=== PATIENT | male | born 1985 | race Caucasian/White ===

== ENCOUNTER 2018-02-17 13:58 | Emergency (ER) | payer SELFPAY ==
[2018-02-17 13:59] VITALS: BP 119/51; PULSE 100; RESP 18; TEMP 37.2; O2SAT 97; BMI 20.9
--- NOTE | 2018-02-17 14:23 | ED.VISSUMM ---
- ER Visit Summary Date of Service: 02/17/18 Chief Complaint: Sore throat History of Present Illness: The patient is a 32 M with a sore throat today. The pain is worse on the right side. He reports some swollen glands. No fever or cough. No other medical issues. Physical Examination: Afebrile vital signs unremarkable. 1+ tonsil on the right, otherwise normal. Anterior cervical lymphadenopathy noted on the right, tender to palpation. Good range of motion of his neck. Breathing okay. No stridor or drooling. Skin normal. Test Results: None Emergency Department Course and Treatment: After discussion with the patient, we will treat with dexamethasone and Pen-Vee K. Risks were discussed. Patient may use [id number] remedies for pain and fever. Risks such as abscess were discussed. Return for any new or worsening issues. Otherwise follow-up with primary care. Treatment Plan: As above Disposition: Discharge Impression: 1. Pharyngitis This note was generated with [employer] dictation software. It may contain incorrect words, spelling, and punctuation that were not noted in review of the chart prior to signing ED Disposition - Plan for ED Patient: Chief Complaint: Sore Throat Referrals: Care Physician,No Primary [Primary Care Provider] -
--- NOTE | 2018-02-17 14:25 | ED.DEP ---
ED Disposition - Plan for ED Patient: Chief Complaint: Sore Throat Instructions: ED Pharyngitis Viral Prescriptions: Penicillin V Potassium 500 mg PO BID 10 Days #20 tab Referrals: Care Physician,No Primary [Primary Care Provider] -
[2018-02-17] MEDS: Penicillin Vk 250 MG Tablet 500 MG PO (14:33)
== END 2018-02-17 14:38 | disposition home or self-care (01) ==
PROVIDERS: Emergency Provider Emergency Medicine
DX: J02.9 Acute pharyngitis, unspecified (principal); Z72.0 Tobacco use
CPT/HCPCS: 99283

== ENCOUNTER 2018-02-19 21:13 | Emergency (ER) | payer SELFPAY ==
[2018-02-19 21:15] VITALS: BP 130/85; PULSE 110; RESP 16; TEMP 36.9; O2SAT 95; BMI 20.9
[2018-02-19 21:47] LABS: Absolute Lymphocyte Count 1.01 X10^3/ul (0.83-4.51); Absolute Neutrophil Count 6.7 X10^3/uL (2.0-7.7); Basophil# 0.04 X10^3/uL; Basophil% 0.5 % (0-1); Eosinophil# 0.03 X10^3/uL; Eosinophils% 0.4 % (0-5); Hemoglobin 13.8 g/dl (13.0-16.5); Lymphocyte # 1.01 X10^3/ul (4.0); Lymphocyte % 11.9 % (19-41); Mean Corp Hgb Conc 33.7 g/gl (32-36); Mean Corpuscular Hgb 30.5 pg (27.0-32.0); Mean Corpuscular Volume 90.7 fL (80-94); Mean Platelet Vol. 9.3 fl (6.2-12.0); Monocyte# 0.76 X10^3/uL; Monocyte% 8.9 % (0-10); Neutrophil # 6.65 X10^3/uL (2.7-7.7); Neutrophil % 78.1 % (47-70); Platelet Count 203 K/mm3 (150-450); Red Blood Count 4.52 M/mm3 (4.6-6.2); White Blood Count 8.5 K/mm3 (4.4-11.0)
[2018-02-19 21:51] LABS: POSITIVE COUNT NO; POSITIVE DIFFERENTIAL NO; POSITIVE MORPHOLOGY NO
[2018-02-19 22:10] LABS: Anion Gap 4 (5-15); BUN 8 mg/dL (7-18); Calcium,Total 8.8 mg/dL (8.5-10.1); Chloride 109 mmol/L (98-107); Creatinine, Serum 1.15 mg/dL (0.70-1.30); EST Glomerular Filtration Rate 77 mL/min (>60); Est Glom Filt Rate - Afr Amer 93 mL/min (>60); Glucose 109 mg/dL (74-106); Potassium 3.8 mmol/L (3.5-5.1); Sodium Level 141 mmol/L (136-145)
--- NOTE | 2018-02-19 22:21 | EKG12_ITS ---
Test Reason : Blood Pressure : / mmHG Vent. Rate : 081 BPM Atrial Rate : 081 BPM P-R Int : 126 ms QRS Dur : 100 ms QT Int : 356 ms P-R-T Axes : 076 057 054 degrees QTc Int : 413 ms Normal sinus rhythm Normal ECG Confirmed by REMA UMANA MD ([id number]), health editor MOODY DONOVAN ([id number]) on 02/22/2018 8:56:55 AM Referred By: ALONA Confirmed By:REMA UMANA MD
--- NOTE | 2018-02-19 22:24 | ED.DCSUM_ITS ---
- ER Visit Summary Date of Service: 02/19/18 Chief Complaint: Suicidal History of Present Illness: The patient is a 32 M with suicidal threats. It sounds like he has a history of bipolar disorder but has not taken meds for years. He says his mother is dying of emphysema. His girlfriend is also threatening to leave with his children. He was pink slipped by the [facility]'s deputy because he had a knife to his throat tonight. He has no medical complaints. Physical Examination: Vital signs unremarkable. Afebrile. Alert and oriented. Blunt affect and depressed mood. Heart regular rate and rhythm. Lungs clear. Abdomen soft. Skin appears normal. Test Results: Laboratory studies pending. Emergency Department Course and Treatment: Patient had suicide precautions. Medical clearance was performed. Will contact counseling. Medical clearance testing was unremarkable. Patient is stable. He did receive some Zofran for nausea but did not require any other medications. Crisis counselor was contacted and will evaluate. Treatment Plan: As above Disposition: Transfer pending crisis evaluation Impression: 1. Suicidal ideation This note was generated with [employer] dictation software. It may contain incorrect words, spelling, and punctuation that were not noted in review of the chart prior to signing ED Disposition - Plan for ED Patient: Chief Complaint: Mental Health Referrals: Care Physician,No Primary [Primary Care Provider] -
--- NOTE | 2018-02-19 22:30 | NURSING ---
MOM IS HANGING OUT IN THE ROOM WITH THE PT
[2018-02-19 22:31] LABS: Alcohol, Blood (Medical)-Serum < 3.0 mg/dL
[2018-02-19 22:35] LABS: Bacteria 0 SEEN /hpf (None Seen); White Blood Cells 0 SEEN /hpf (0-5)
[2018-02-19 22:36] VITALS: PULSE 93; RESP 16; O2SAT 94
[2018-02-19 22:36] LABS: Amphetamine Urine VISTA NEGATIVE (<1000 ng/mL); Barbiturate Urine VISTA NEGATIVE (< 200 ng/mL); Benzodiazepine Urine VISTA NEGATIVE (< 200 ng/mL); Cocaine Urine VISTA NEGATIVE (< 300 ng/mL); Ecstacy Urine VISTA NEGATIVE (< 500 ng/mL); Methadone Urine VISTA NEGATIVE (< 300 ng/mL); PCP Urine VISTA NEGATIVE (< 25 ng/mL); THC Urine VISTA NEGATIVE (< 50 ng/mL); Vista UDS pH Range 5
[2018-02-19 22:46] LABS: Color, Urine Yellow (Yellow); Glucose, Dipstick Normal (Normal); Ketone-Dipstick Negative (Negative); Leukocyte Esterase-Dipstick 25 /ul (Negative); Nitrite-Dipstick Negative (Negative); Occult Blood-Urine 10 /ul (Negative); Protein-Dipstick 15 mg/dl (Negative); Specific Gravity, Urine 1.015 (1.002-1.030); Urine Bilirubin Dipstick Negative (Negative); Urine Clarity Clear (Clear); Urine Urobilinogen 1 mg/dl (Normal)
[2018-02-19 22:51] LABS: AST(SGOT) 16 U/L (15-37); Alanine Aminotransfer ALT/SGPT 25 U/L (16-61); Albumin, Serum 3.8 g/dL (3.2-5.0); Alkaline Phosphatase 61 U/L (45-117); Bilirubin, Direct 0.11 mg/dL (0.00-0.30); Globulin 3.6 g/dL (2.2-4.2); Protein, Total 7.4 g/dL (6.4-8.2)
[2018-02-19] MEDS: Ondansetron ODT 4 MG Tablet PO (22:53)
[2018-02-19 23:05] LABS: Red Blood Cells-Urine 0-5 SEEN /hpf (0-5)
[2018-02-19 23:06] LABS: Mucous, Urine RARE /hpf (<or=2+); Squamous Epithelial Cells - UA 0-5 SEEN /hpf (0-5)
[2018-02-20] VITALS (9 sets, daily range): BP systolic 93–120; BP diastolic 58–80; PULSE 75–88; RESP 16–17; TEMP 36.6; O2SAT 95–100
[2018-02-20] MEDS: LORazepam 1 MG Tablet PO (00:52)
--- NOTE | 2018-02-20 09:37 | NURSING ---
CALLED [facility] FOR TRANSPORT. ETA IS 1100 AM
== END 2018-02-20 11:51 ==
PROVIDERS: Emergency Provider Emergency Medicine
DX: R45.851 Suicidal ideations (principal); R11.0 Nausea; F17.210 Nicotine dependence, cigarettes, uncomplicated
CPT/HCPCS: 80048; 80076; 80307; 80320; 81001; 85025; 93005; 99285; G0480

== ENCOUNTER 2018-06-15 12:59 | Emergency (ER) | payer SELFPAY ==
[2018-06-15 13:00] VITALS: BP 116/73; PULSE 83; RESP 17; TEMP 36.6; O2SAT 97; BMI 21.9
--- NOTE | 2018-06-15 13:56 | ED.VISSUMM ---
- ER Visit Summary Date of Service: 06/15/18 Chief Complaint: [Pain] History of Present Illness: The patient is a 32 M [presents the emergency department complaint of back pain that started 5 days ago. Patient states that he and his brother lifted the motorcycle onto his porch so they can work on the engine that when he first noticed the pain in his low back. The patient states the pain became worse today while at work. Patient complains of pain radiating down his right leg mostly down the lateral aspect of the thigh to about the knee. Patient denies any weakness the extremity. He denies any change in bowel or bladder function. Patient denies any fevers. He denies urinary symptoms. Patient has not had pain like this before. Patient states that he took his 's Percocet and did not get much pain relief with that.] Physical Examination: [HEENT-PERRLA, EOMI. Cranial nerves II through XII grossly intact. TMs clear. Mucous membranes moist. No adenopathy. Cardiovascular-regular rate and rhythm without murmur or ectopy Lungs-clear to auscultation, chest wall stable without crepitus or subcu emphysema Abdomen-normoactive bowel sounds, soft, nontender, no rebound or rigidity, no peritoneal signs. Back exam-patient does have some mild tenderness over the lumbar spine and right lumbar paraspinal musculature that seems to reproduce his pain. She has negative straight leg raises. Deep tendon reflexes are plus out of 4 bilaterally at the patella and Achilles. Patient has normal L5 extension. Extremities-intact ?4, normal range of motion, normal pulses, atraumatic] Test Results: [None indicated] Emergency Department Course and Treatment: [Patient was medicated with Dilaudid, Norflex, and Toradol.] Treatment Plan: [Patient will be given a prescription for Flexeril, [place], and naproxen. Patient will be referred to primary care physician education director for no doc.] Disposition: [Discharged home in stable condition]. Patient advised to return if signs of cauda equina such as weakness in extremities, change in bowel or bladder function, saddle anesthesia, or condition should worsen anyway. Impression: [Lumbar strain Lumbar radiculopathy] This note was generated with [employer] dictation software. It may contain incorrect words, spelling, and punctuation that were not noted in review of the chart prior to signing ED Disposition - Plan for ED Patient: Chief Complaint: Back Referrals: Care Physician,No Primary [Primary Care Provider] -
--- NOTE | 2018-06-15 14:05 | ED.DCSUM_ITS ---
- ER Visit Summary Date of Service: 06/15/18 Chief Complaint: [Pain] History of Present Illness: The patient is a 32 M [presents the emergency department complaint of back pain that started 5 days ago. Patient states that he and his brother lifted the motorcycle onto his porch so they can work on the engine that when he first noticed the pain in his low back. The patient states the pain became worse today while at work. Patient complains of pain radiating down his right leg mostly down the lateral aspect of the thigh to about the knee. Patient denies any weakness the extremity. He denies any change in bowel or bladder function. Patient denies any fevers. He denies urinary symptoms. Patient has not had pain like this before. Patient states that he took his 's Percocet and did not get much pain relief with that.] Physical Examination: [HEENT-PERRLA, EOMI. Cranial nerves II through XII grossly intact. TMs clear. Mucous membranes moist. No adenopathy. Cardiovascular-regular rate and rhythm without murmur or ectopy Lungs-clear to auscultation, chest wall stable without crepitus or subcu emphysema Abdomen-normoactive bowel sounds, soft, nontender, no rebound or rigidity, no peritoneal signs. Back exam-patient does have some mild tenderness over the lumbar spine and right lumbar paraspinal musculature that seems to reproduce his pain. She has negative straight leg raises. Deep tendon reflexes are plus out of 4 bilaterally at the patella and Achilles. Patient has normal L5 extension. Extremities-intact ?4, normal range of motion, normal pulses, atraumatic] Test Results: [None indicated] Emergency Department Course and Treatment: [Patient was medicated with Dilaudid, Norflex, and Toradol.] Treatment Plan: [Patient will be given a prescription for Flexeril, [place], and naproxen. Patient will be referred to primary care physician sludge control attendant for no doc.] Disposition: [Discharged home in stable condition]. Patient advised to return i f signs of cauda equina such as weakness in extremities, change in bowel or bladder function, saddle anesthesia, or condition should worsen anyway. Impression: [Lumbar strain Lumbar radiculopathy] This note was generated with [employer] dictation software. It may contain incorrect words, spelling, and punctuation that were not noted in review of the chart prior to signing ED Disposition - Plan for ED Patient: Chief Complaint: Back Referrals: Care Physician,No Primary [Primary Care Provider] -
--- NOTE | 2018-06-15 14:05 | ED.DEP ---
ED Disposition - Plan for ED Patient: Chief Complaint: Back Instructions: ED Sprain Strain Lumbar, ED Sciatica Prescriptions: Hydrocodone Bitart/Apap 5-325 [[place] 5MG-325MG] 1 tab PO Q4H PRN PRN 2 Days #20 tab PRN Reason: Pain Naproxen [Naprosyn] 500 mg PO BID PRN #20 tab Cyclobenzaprine [Flexeril] 10 mg PO TID PRN #20 tab PRN Reason: Muscle Spasm Referrals: Care Physician,No Primary [Primary Care Provider] - Faustina Muro MD [STAFF PHYSICIAN] - 3-5 Days
[2018-06-15] MEDS: Ketorolac 30 MG/ML Syringe 60 MG IM (14:17)
[2018-06-15] MEDS: Orphenadrine 60 MG/2 ML Ampul IM (14:17)
[2018-06-15] MEDS: HYDROmorphone 1 MG/ML Syringe IM (14:17)
[2018-06-15 14:37] VITALS: BP 118/94; PULSE 70; RESP 18; O2SAT 98
--- NOTE | 2018-06-15 14:37 | ED.RN ---
REVIEWED D/C INSTRUCTIONS, FOLLOW UP CARE, PRESCRIPTIONS, AND S/S THAT WOULD WARRANT A RETURN TO THE ED WITH PT. PT VERBALIZED AN UNDERSTANDING AND DENIES FURTHER QUESTIONS FOR THIS RN. PT SKIN P/W/D, RESP EVEN AND UNLABORED, PT A&O X 3, NO DISTRESS NOTED. PT AMBULATED OUT OF ED, GAIT STEADY.
== END 2018-06-15 14:58 | disposition home or self-care (01) ==
PROVIDERS: Emergency Provider Emergency Medicine
DX: M54.16 Radiculopathy, lumbar region (principal); S39.012A Strain of muscle, fascia and tendon of lower back, initial encounter; X50.9XXA Other and unspecified overexertion or strenuous movements or postures, initial encounter; Y93.9 Activity, unspecified; Y92.9 Unspecified place or not applicable; Y99.9 Unspecified external cause status; Z72.0 Tobacco use
CPT/HCPCS: 96372; 99282

== ENCOUNTER 2019-06-14 16:30 | Emergency (ER) | payer MEDICAID, SELFPAY ==
[2019-06-14 16:31] VITALS: BP 125/79; PULSE 96; RESP 15; TEMP 37.3; O2SAT 98; BMI 23.8
--- NOTE | 2019-06-14 16:55 | EKG12_ITS ---
Test Reason : Blood Pressure : / mmHG Vent. Rate : 070 BPM Atrial Rate : 070 BPM P-R Int : 128 ms QRS Dur : 100 ms QT Int : 386 ms P-R-T Axes : 070 057 055 degrees QTc Int : 416 ms Normal sinus rhythm Normal ECG Confirmed by JONNY CARUSO, DEVIN ([id number]), editor & co founder NIK BRACENAS ([id number]) on 06/19/2019 9:44:41 A M Referred By: LUKE Confirmed By:ETELVINA FULLER MD
--- NOTE | 2019-06-14 16:56 | CT_ITS ---
STUDY: CTA HEAD AND NECK WITH CONTRAST REASON FOR EXAM: Male, 33 years old. Stroke RADIATION DOSAGE (If Supplied By Facility): CTDIvol = ( 29.29 ) mGy, DLP = ( 1477.46 ) mGycm TECHNIQUE: CT angiography was performed with a multi-detector CT scanner. Data acquisition was obtained from the skull base through the vertex following intravenous administration of IV Isovue 300 100ML. MIP images were reconstructed from the axial data set. Post-processing of the angiographic images was performed, with multiplanar reformation and 3D reconstruction. Individualized dose optimization techniques were used for this CT. COMPARISON: No relevant priors. FINDINGS: Normal bilateral petrous carotid arteries. Normal right cavernous carotid artery with a normal supraclinoid bifurcation. Normal left cavernous carotid artery with a normal supraclinoid bifurcation. Normal right A1 segments of the anterior cerebral artery. Normal left A1 segments of the anterior cerebral artery. Anterior communicating artery not visualized consistent with normal variant). Normal bilateral A2 segments of the anterior cerebral arteries. Normal right M1 and M2 segments of the middle cerebral arteries, with a normal M1 bifurcation. Normal left M1 and M2 segments of the middle cerebral arteries, with a normal M1 bifurcation. Posterior communicating arteries are not visualized consistent with normal variant). Normal bilateral vertebral arteries. Normal basilar artery with a normal basilar bifurcation. The visualized bilateral superior cerebellar (SCA) arteries are normal. Normal bilateral P1, P2 and visualized P3 segments of the posterior cerebral arteries. There is no demonstrated aneurysm of the [place]. There is no demonstrated abnormality of the visualized brain. AORTIC ARCH: Normal visualized aortic arch. Normal origins of the brachiocephalic, left common carotid, and left subclavian arteries. RIGHT CAROTID ARTERIES: Normal right common carotid artery (CCA). Normal right common carotid bulb. Normal origin of the right internal carotid (ICA) artery without a hemodynamically significant stenosis. Normal visualized cervical portion of the right internal carotid artery. Normal origin of the right external carotid artery (ECA). LEFT CAROTID ARTERIES: Normal left common carotid artery (CCA). Normal left common carotid bulb. Normal origin of the left internal carotid (ICA) artery without a hemodynamically significant stenosis. Normal visualized cervical portion of the left internal carotid artery. Normal origin of the left external carotid artery (ECA). VERTEBRAL ARTERIES: Normal bilateral vertebral arteries. CT/CTA Head AND Neck W/ Contrast IMPRESSION: Normal CTA Head and neck with contrast. Electronically Signed: Moises Choi MD at 18:05 EDT , Service support ,
--- NOTE | 2019-06-14 16:58 | ED.VISSUMM ---
- ER Visit Summary Date of Service: 06/14/19 Chief Complaint: Left arm sensation of heaviness History of Present Illness: The patient is a 33 M no seen past medical or surgical history. Patient is a smoker. Said around 330 to 4:00 today he had sudden onset of left arm felt heavy. No numbness. No tingling. No headache. No pain. No prior history. No other symptoms. No visual change. No speech change. No trouble walking or moving his arms or legs. No weakness. He is right-hand dominant. Physical Examination: Young male. No acute distress. Vital signs are stable afebrile. Initial blood pressure 125/79. HEENT exam normal. No facial droop. Pupils round reactive light. Normal speech. Neck nontender. Lungs clear to auscultation bilaterally. Heart regular rhythm no murmur rate about 90. Abdomen soft nontender. Extremities moves all 4. There are neurovascular intact. His left hand and right hand have 5 out of 5 liquid flavor compounder strength. He has normal range of motion of both upper and lower extremities. Fingertip to nose and [id number] within normal limits. He has normal radial and ulnar pulses in the left hand. Normal sensation. There is no ataxia. He has normal dexterity with the left hand. Neurologically is awake and alert. NIH score is 0. There was no past pointing. Test Results: CBC normal white count of 5. Chemistries normal. EKG sinus rhythm rate is 70 no acute abnormality. CTA head and neck both reviewed by me read by the radiologist shows no acute abnormality. Emergency Department Course and Treatment: This is exam is basically normal he is a left arm feels heavy. He has no other complaints. Will obtain a CTA of his head neck and an EKG and screening labs. Repeat exam at 1825 his exam remains normal. His neurologic exam is normal. His NIH score is 0. He has normal liquid flavor compounder strength. Normal fingertip to nose. Normal speech. No facial droop. Normal dorsi and plantar flexion. Normal sensation. Treatment Plan: I discussed all test results with patient and significant other. They are comfortable with him being discharged home and outpatient follow-up. He will be referred to local primary care physician. Disposition: Discharge Impression: Subjective left arm heaviness of uncertain etiology This note was generated with [employer] software. It may contain incorrect words, spelling, and punctuation that were not noted in review of the chart prior to signing ED Disposition - Plan for ED Patient: Referrals: Care Physician,No Primary [Primary Care Provider] -
[2019-06-14 17:27] VITALS: BP 116/78; PULSE 75; RESP 14; O2SAT 98
[2019-06-14 17:34] LABS: Absolute Lymphocyte Count 1.61 X10^3/uL (0.83-4.51); Absolute Neutrophil Count 2.9 X10^3/uL (2.0-7.7); Basophil# 0.06 X10^3/uL; Basophil% 1.1 % (0-1); Eosinophil# 0.08 X10^3/uL; Eosinophils% 1.5 % (0-5); Hematocrit 44.6 % (40-54); Hemoglobin 15.1 g/dL (13.0-16.5); Lymphocyte # 1.61 X10^3/ul (4.0); Lymphocyte % 30.6 % (19-41); Mean Corp Hgb Conc 33.9 g/dL (32-36); Mean Corpuscular Hgb 31.1 pg (27.0-32.0); Mean Corpuscular Volume 91.8 fL (80-94); Mean Platelet Vol. 9.9 fl (6.2-12.0); Monocyte# 0.54 X10^3/uL; Monocyte% 10.3 % (0-10); NRBC Flagged by Analyzer 0 % (0-5); Neutrophil # 2.94 X10^3/uL (2.7-7.7); Neutrophil % 55.9 % (47-70); Platelet Count 196 K/mm3 (150-450); RBC Distribution Width CV 12.3 % (11.6-14.6); Red Blood Count 4.86 M/mm3 (4.6-6.2); White Blood Count 5.3 K/mm3 (4.4-11.0)
[2019-06-14 17:59] LABS: Anion Gap 7 (5-15); BUN 9 mg/dL (7-18); BUN/Creat Ratio 7.9 RATIO (10-20); Calcium,Total 9.2 mg/dL (8.5-10.1); Chloride 106 mmol/L (98-107); Creatinine, Serum 1.14 mg/dL (0.70-1.30); EST Glomerular Filtration Rate 77 mL/min (>60); Est Glom Filt Rate - Afr Amer 94 mL/min (>60); Estimated Creatinine Clearance 96.33 ml/min; Glucose 88 mg/dL (74-106); Potassium 4.2 mmol/L (3.5-5.1); Sodium Level 139 mmol/L (136-145)
[2019-06-14] MEDS: 0.9% Normal Saline 1,000 ML 1000 ML IV (18:02)
--- NOTE | 2019-06-14 18:34 | ED.DEP ---
ED Disposition - Plan for ED Patient: Disposition: Home or Assisted Living Referrals: Randy Mariscal MD [STAFF PHYSICIAN] - As soon as possible Additional Instructions: Follow-up with local primary care physician. Your blood work, EKG and CAT scan were all normal. I do not have a specific cause for the sensation you are having in your left arm. Your exam is normal also. Return to the ER if you are feeling worse or other symptoms develop. This should improve and resolve. Stop smoking ! !
== END 2019-06-14 18:52 | disposition home or self-care (01) ==
PROVIDERS: Emergency Provider Emergency Medicine
DX: R29.898 Other symptoms and signs involving the musculoskeletal system (principal); R19.7 Diarrhea, unspecified; F17.200 Nicotine dependence, unspecified, uncomplicated
CPT/HCPCS: 70496; 70498; 80048; 85025; 93005; 96360; 99284; J7030; Q9967; A4216

== ENCOUNTER 2019-08-21 15:17 | Emergency (ER) | payer MEDICAID, SELFPAY ==
[2019-08-21 15:18] VITALS: BP 116/73; PULSE 90; RESP 14; TEMP 36.7; O2SAT 97; BMI 25.5
--- NOTE | 2019-08-21 15:50 | ED.VIS.GEN ---
History of Present Illness Chief Complaint: Lower Extremity Injury Detail of Chief Complaint: Paresthesia stocking glove distribution left leg and foot Informant: Patient Onset: Yesterday - 2199 Context: Sudden Onset Timing: Continuous Quality: Tingly unusual sensation Location: Inferior left patella 2 toes Current Severity: Mild Maximum Severity: Moderate Worsened by: Nothing Relieved by: Nothing Associated Symptoms: Kang horse posterior mid left thigh Narrative: Patient is a 33-year-old male who presents with unusual sensation involving the left leg, foot and toes started last evening. Nothing in particular makes the altered sensation better or worse. Nothing precipitated the unusual sensation. He denies back pain. He denies bowel bladder dysfunction. He denies saddle paresthesia or anesthesia. He denies foot drop. He denies weakness going up or down steps. He denies history of back problems. 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 He does not do any lifting etc. Patient denies history of neuropathy, diabetes and hypertension. Prior similar symptoms: No Recent Illness/Hospitalization: No - Past Medical History (1) No significant past medical history Status: Acute Past Medical History - Allergies and Home Meds Allergies/Adverse Reactions: Allergies fluoxetine HCl [From Prozac] Adverse Reaction (Verified 08/21/19 15:21) Other sertraline [From Zoloft] Adverse Reaction (Verified 08/21/19 15:21) Other Primary Care Physician: Care Physician,No Primary [Primary Care Provider] - Prior records reviewed: No Past Medical History: None Surgical History: no surgical history Lives: Alone Smoking Status: Current every day smoker Alcohol: Rare Drugs: None Review of Systems General: Denies: Chills, Fever, Malaise, Subjective, Sweats, Weight loss Cardiovascular: Denies: Chest pain Respiratory: Denies: Dyspnea, Cough Gastrointestinal: Reports: Abdominal pain. Denies: Nausea, Vomiting, Diarrhea Musculoskeletal: Denies: Myalgias, Arthralgias, Neck pain, Back pain, Swelling, Extremity Pain, -, - Skin: Denies: Rash, Abscess, Abrasions, Wounds Neurological: Reports: Parasthesia. Denies: Weakness, Numbness Endocrine: Denies: Polyuria, Polydipsia Hematologic: Denies: Easy bruising, Easy bleeding Physical Exam Vital Signs/Narrative: Vital Signs Temp Pulse Resp BP Pulse Ox 08/21/19 15:18 98.1 F 90 14 116/73 97 Inital Vital Signs reviewed: Yes General: Well nourished, Well developed, No Acute Distress Head: Normocephalic, Atraumatic Eyes: Perrl, EOMI. Negative for: Pale conjunctiva, Scleral icterus Neck: Supple, Nontender Cardiovascular: Regular rate, Regular rhythm, No murmurs Respiratory: No distress, CTA bilaterally, Chest nontender Abdomen: Soft, Nontender, Nondistended, Normal bowel sounds, No masses. Negative for: Hepatomegaly, Splenomegaly, Mass, Pulsatile mass Back: Nontender, Normal Inspection, - - Straight leg test and crossover test are negative.. Negative for: CVA tenderness Extremities: Nontender, No edema, - - Ports pain to palpation posterior left thigh and numbness distal left knee. DP and PT pulses are 2+ and palpable. Skin: Normal color, No rash, No Trauma. Negative for: Cyanosis, Diaphoresis, Jaundice Neurological: Alert, Oriented x3, Cranial nerves II-XII grossly intact, Normal Strength - 5/5 strength plantar and dorsiflexion of the foot, flexion and extension of knee and EHL is intact., Normal Sensation, Normal DTR - 3+ and symmetric at the patella and ankle. There is no clonus and negative Babinski sign. Psychological: Normal affect, Normal Mood Diagnostic/Tx/Re-eval Laboratory Results 08/21/19 08/21/19 15:42 15:42 WBC 6.1 RBC 4.64 Hgb 14.2 Hct 41.9 MCV 90.3 MCH 30.6 MCHC 33.9 RDW Std Deviation 42.1 RDW Coeff of Ara 12.8 Plt Count 223 MPV 9.5 Immature Gran % (Auto) 1.000 H Neut % (Auto) 66.7 Lymph % (Auto) 20.5 [place] % (Auto) 9.2 Eos % (Auto) 1.8 Baso % (Auto) 0.8 Absolute Neuts (auto) 4.1 Absolute Lymphs (auto) 1.25 Nucleated RBC % 0 Sodium 142 Potassium 3.5 Chloride 108 H Carbon Dioxide 29.0 Anion Gap 5 BUN 9 Creatinine 1.17 Estim Creat Clear Calc 93.86 Est GFR (MDRD) Af Amer 91 Est GFR (MDRD) Non-Af 75 BUN/Creatinine Ratio 7.7 L Glucose 107 H Calcium 9.1 ABC and basic metabolic panel are essentially unremarkable. Glucose is slightly abated 107. Patient was informed the cause of his numbness is unknown. Since he has [facility] he was instructed to follow-up with the physician he was assigned to by his insurance carrier. - Medical Decision Making [place] with paresthesias stocking glove distribution. This may represent neuropraxia possibly, doubt herniated disc. Will obtain blood work looking for polycythemia vera, atypical differential and electrolytes specifically sodium and potassium. ED Disposition - Plan for ED Patient: Disposition: Home or Assisted Living Diagnosis: Paresthesia of left leg Instructions: Paraesthesias Referrals: Care Physician,No Primary [Primary Care Provider] - Additional Instructions: You do have a physician. The name of your physician and/or primary care provider is listed on your insurance card. Recommend follow-up if no improvement in the next several days. The exact cause of your numbness/unusual sensation is unknown.
[2019-08-21 15:54] LABS: Absolute Lymphocyte Count 1.25 X10^3/uL (0.83-4.51); Absolute Neutrophil Count 4.1 X10^3/uL (2.0-7.7); Basophil# 0.05 X10^3/uL; Basophil% 0.8 % (0-1); Eosinophil# 0.11 X10^3/uL; Eosinophils% 1.8 % (0-5); Hematocrit 41.9 % (40-54); Hemoglobin 14.2 g/dL (13.0-16.5); Lymphocyte # 1.25 X10^3/ul (4.0); Lymphocyte % 20.5 % (19-41); Mean Corp Hgb Conc 33.9 g/dL (32-36); Mean Corpuscular Hgb 30.6 pg (27.0-32.0); Mean Corpuscular Volume 90.3 fL (80-94); Mean Platelet Vol. 9.5 fl (6.2-12.0); Monocyte# 0.56 X10^3/uL; Monocyte% 9.2 % (0-10); NRBC Flagged by Analyzer 0 % (0-5); Neutrophil # 4.06 X10^3/uL (2.7-7.7); Neutrophil % 66.7 % (47-70); Platelet Count 223 K/mm3 (150-450); RBC Distribution Width CV 12.8 % (11.6-14.6); RBC Distribution Width SD 42.1 fl (35.1-43.9); Red Blood Count 4.64 M/mm3 (4.6-6.2); White Blood Count 6.1 K/mm3 (4.4-11.0)
[2019-08-21 16:06] LABS: Anion Gap 5 (5-15); BUN 9 mg/dL (7-18); BUN/Creat Ratio 7.7 RATIO (10-20); Calcium,Total 9.1 mg/dL (8.5-10.1); Chloride 108 mmol/L (98-107); Creatinine, Serum 1.17 mg/dL (0.70-1.30); EST Glomerular Filtration Rate 75 mL/min (>60); Est Glom Filt Rate - Afr Amer 91 mL/min (>60); Estimated Creatinine Clearance 93.86 ml/min; Glucose 107 mg/dL (74-106); Potassium 3.5 mmol/L (3.5-5.1); Sodium Level 142 mmol/L (136-145)
[2019-08-21 16:26] VITALS: BP 138/69; PULSE 59; RESP 16; O2SAT 97
== END 2019-08-21 16:27 | disposition home or self-care (01) ==
PROVIDERS: Emergency Provider Emergency Medicine
DX: R20.2 Paresthesia of skin (principal); F17.200 Nicotine dependence, unspecified, uncomplicated
CPT/HCPCS: 80048; 85025; 99282

== ENCOUNTER 2019-12-10 21:28 | Inpatient (IN) | payer OTHER, MEDICAID, SELFPAY ==
[2019-12-10 21:29] VITALS: BP 104/65; PULSE 111; RESP 20; TEMP 38.8; O2SAT 95; BMI 24.1
[2019-12-10 21:30] VITALS: BP 104/65; PULSE 111; RESP 20; TEMP 38.9; O2SAT 95
--- NOTE | 2019-12-10 21:51 | ED.DCSUM_ITS ---
History of Present Illness Chief Complaint: Cold Sx Narrative: This patient is a 34-year-old male who presents with fever and vomiting. He became ill last night. He initially had a sore throat. He woke up with a fever today and has had about 5 episodes of nonbloody nonbilious emesis. He complains of a nonproductive cough and began to develop shortness of breath. No congestion or rhinorrhea. He has chronic diarrhea. He denies any medical history or daily medications. Past Medical History - Allergies and Home Meds Allergies/Adverse Reactions: Allergies fluoxetine HCl [From Prozac] Adverse Reaction (Verified 12/10/19 21:30) Other ANXIETY ATTACK sertraline [From Zoloft] Adverse Reaction (Verified 12/10/19 21:30) Other PANIC ATTACK Primary Care Physician: Care Physician,No Primary [Primary Care Provider] - Past Medical History: None Surgical History: no surgical history Smoking Status: Current every day smoker Review of Systems All systems negative except as indicated General: Reports: Fever Eyes: Denies: Visual changes - bilaterally ENT: Reports: Sore throat. Denies: Bilateral ear pain Cardiovascular: Denies: Chest pain Respiratory: Reports: Dyspnea, Cough. Denies: Sputum Gastrointestinal: Reports: Nausea, Vomiting, Diarrhea. Denies: Abdominal pain Skin: Denies: Rash Neurological: Reports: Headache Physical Exam Vital Signs/Narrative: Vital Signs Temp Pulse Resp BP Pulse Ox 12/10/19 21:29 102 F H 111 H 20 H 104/65 95 Inital Vital Signs reviewed: Yes General: - - Patient is ill-appearing Head: Normocephalic, Atraumatic Eyes: EOMI ENT: Moist mucous membranes Neck: Supple Cardiovascular: - - Heart is regular tachycardia I do not appreciate murmur, gallop, rub Respiratory: Negative for: Rales, Rhonchi, Wheezing, Decreased Air Movement Abdomen: Soft, Nontender, Nondistended Extremities: Nontender Skin: Normal color Neurological: Alert Psychological: Normal affect Diagnostic/Tx/Re-eval Impressions Chest X-Ray 12/10/19 22:23 IMPRESSION: Normal x-ray examination of the chest. Electronically Signed: Harper Gu MD at 22:37 EDT Tel , Service support , 12/10/19 22:23 Chest 1 View (Portable) [RAD] Stat 12/10/19 22:10 Mucosa - Throat Group A Streptococcus Rapid Screen - Preliminary Streptococcus Group A 12/10/19 22:00 Mucosa - Nasopharyngeal Rapid RSV (DFA) - Final 12/10/19 22:00 Mucosa - Nasopharyngeal Influenza Types A,B Direct FA (DAVIDA) - Final Laboratory Results 12/10/19 12/10/19 12/10/19 21:45 21:45 21:45 WBC 21.0 H RBC 4.86 Hgb 14.7 Hct 43.8 MCV 90.1 MCH 30.2 MCHC 33.6 RDW Std Deviation 39.2 RDW Coeff of Ara 11.9 Plt Count 199 MPV 10.0 Immature Gran % (Auto) 0.900 Neut % (Auto) 87.7 H Lymph % (Auto) 4.8 L [place] % (Auto) 5.9 Eos % (Auto) 0.4 Baso % (Auto) 0.3 Absolute Neuts (auto) 18.5 H Absolute Lymphs (auto) 1.00 Nucleated RBC % 0 Sodium 137 Potassium 4.0 Chloride 105 Carbon Dioxide 25.0 Anion Gap 7 BUN 13 Creatinine 1.35 H Estim Creat Clear Calc 80.57 Est GFR (MDRD) Af Amer 77 Est GFR (MDRD) Non-Af 64 BUN/Creatinine Ratio 9.6 L Glucose 119 H Lactic Acid 1.7 Calcium 9.7 Total Bilirubin 1.60 H Direct Bilirubin 0.33 H AST 23 ALT 43 Alkaline Phosphatase 68 Total Protein 7.6 Albumin 4.0 Globulin 3.6 Lipase 51 L - Medical Decision Making Patient was symptomatically treated with IV fluids, Toradol, Zofran. He was gi tari Tylenol for fever. He does appear improved on reevaluation. Heart rate is improved to less than 100. Patient clinically feels better. His chest x-ray is unremarkable, influenza and RSV were negative. Rapid strep is positive. Labs are notable for white blood cell count of 21,000. Lactic acid is normal. The degree of his illness seems to be out of proportion to streptococcal pharyngitis. Additionally he has symptoms that would not be explained by this such as cough and dyspnea. He was covered with broad-spectrum antibiotics. Would be concerned about possible 2019 novel coronavirus as well. He has been discussed with the hospitalist who agrees to admit. ED Disposition - Plan for ED Patient: Disposition: Acute Care Hospital [facility] Diagnosis: Sepsis syndrome, Streptococcal pharyngitis, Suspected 2019 novel coronavirus infection Referrals: Care Physician,No Primary [Primary Care Provider] -
[2019-12-10 22:06] LABS: Absolute Neutrophil Count 18.5 X10^3/uL (2.0-7.7); Basophil# 0.07 X10^3/uL; Basophil% 0.3 % (0-1); Eosinophil# 0.08 X10^3/uL; Eosinophils% 0.4 % (0-5); Hematocrit 43.8 % (40-54); Hemoglobin 14.7 g/dL (13.0-16.5); Lymphocyte % 4.8 % (19-41); Mean Corp Hgb Conc 33.6 g/dL (32-36); Mean Corpuscular Hgb 30.2 pg (27.0-32.0); Mean Corpuscular Volume 90.1 fL (80-94); Monocyte# 1.25 X10^3/uL; Monocyte% 5.9 % (0-10); NRBC Flagged by Analyzer 0 % (0-5); Neutrophil # 18.45 X10^3/uL (2.7-7.7); Neutrophil % 87.7 % (47-70); Platelet Count 199 K/mm3 (150-450); RBC Distribution Width CV 11.9 % (11.6-14.6); RBC Distribution Width SD 39.2 fl (35.1-43.9); Red Blood Count 4.86 M/mm3 (4.6-6.2)
[2019-12-10] MEDS: 0.9% Normal Saline 1,000 ML 1000 ML IV (22:20)
[2019-12-10] MEDS: Ketorolac 30 MG/ML Syringe IV (22:20)
[2019-12-10] MEDS: Ondansetron 4 MG/2 ML Vial IV (22:20)
[2019-12-10] MEDS: Acetaminophen 500 MG Tablet 1000 MG PO (22:20)
[2019-12-10 22:23] LABS: AST(SGOT) 23 U/L (15-37); Alanine Aminotransfer ALT/SGPT 43 U/L (16-61); Alkaline Phosphatase 68 U/L (45-117); Anion Gap 7 (5-15); BUN 13 mg/dL (7-18); BUN/Creat Ratio 9.6 RATIO (10-20); Bilirubin, Direct 0.33 mg/dL (0.00-0.30); Calcium,Total 9.7 mg/dL (8.5-10.1); Chloride 105 mmol/L (98-107); Creatinine, Serum 1.35 mg/dL (0.70-1.30); EST Glomerular Filtration Rate 64 mL/min (>60); Est Glom Filt Rate - Afr Amer 77 mL/min (>60); Estimated Creatinine Clearance 80.57 ml/min; Globulin 3.6 g/dL (2.2-4.2); Glucose 119 mg/dL (74-106); Lipase 51 U/L (73-393); Protein, Total 7.6 g/dL (6.4-8.2); Sodium Level 137 mmol/L (136-145)
--- NOTE | 2019-12-10 22:23 | RAD_ITS ---
STUDY: X-RAY CHEST REASON FOR EXAM: Male, 34 years old. COUGH WITH SOB AND FEVER TECHNIQUE: Portable chest. COMPARISON: 10/21/2015. FINDINGS: The lungs are clear and expanded. There is no demonstrated pleural abnormality. Normal size heart. Normal mediastinum and mey. Normal visualized pulmonary arteries. Normal visualized aortic arch and descending thoracic aorta. Normal visualized thoracic spine. Normal visualized ribs, clavicles, and shoulders. There is no demonstrated abnormality of the visualized soft tissue structures of the upper abdomen. RAD/Chest 1 View (Portable) IMPRESSION: Normal x-ray examination of the chest. Electronically Signed: Harper Gu MD at 22:37 EDT Tel , Service support ,
[2019-12-10 22:25] LABS: Lactic Acid 1.7 mmol/L (0.4-1.9)
[2019-12-10 22:30] VITALS: BP 105/54; PULSE 98; RESP 18; TEMP 37.2
--- NOTE | 2019-12-10 23:22 | HP.PCM_ITS ---
Problem List (1) Sepsis Status: Acute Qualifiers: Sepsis type: sepsis due to unspecified organism Sepsis acute organ dysfunction status: unspecified Qualified Code(s): A41.9 - Sepsis, unspecified organism (2) Streptococcal pharyngitis Status: Acute (3) Suspected 2019 novel coronavirus infection Status: Acute (4) Anxiety and depression Status: Chronic (5) Tobacco use Status: Chronic (6) Chronic diarrhea Status: Chronic History of Present Illness Date of Admission: 12/10/19 Chief Complaint: Fever, sore throat, cough, fatigue, nausea and emesis x 24 hours The patient is a 34 y/o M w/ PMHx: Anxiety/Depression, Chronic Diarrhea, Tobacco use who presents to the [facility] ED on 12/10/19 with history of initial onset significant sore throat with onset then of dry cough and high-grade fevers with dyspnea, worse with any effort in addition to nausea and bouts of emesis without any associated abdominal pain and ongoing chronic diarrhea which he notes has been unchanged x24 hours prompting ED presentation. He has several family members that he lives with and he denies them having any similar symptoms. In the ED work-up included T102, heart rate 111, BP 104/65, respiratory rate 20, 95% on room air, CBC with WBC 21, hemoglobin 14.7, platelet 199 with left shift with mild lymphopenia also concurrently noted, CMP with BUN/creatinine 13/1.35, glucose 119, lactic acid 1.7, total bilirubin 1.6, direct bilirubin 0.33, AST/ALT 23/43, lipase 51, chest x-ray with no acute cardiopulmonary findings. In the ED patient ministered normal saline bolus, Zosyn, Zofran, Toradol 30 mg IV x1 and Tylenol 1000 mg p.o. x1. Past Medical History Past Medical History (Chronic Problems): Chronic Problems Anxiety and depression (Chronic) Tobacco use (Chronic) Chronic diarrhea (Chronic) Allergies fluoxetine HCl [From Prozac] Adverse Reaction (Verified 12/10/19 21:30) Other ANXIETY ATTACK sertraline [From Zoloft] Adverse Reaction (Verified 12/10/19 21:30) Other PANIC ATTACK Home Medications: Ambulatory Orders Medication Instructions Recorded NK 08/21/19 Surgical History: - - Teeth removal. Psychiatric History: Anxiety, Depression Lives: With Family Smoking Status: Current every day smoker - Patient smokes 1 to 1.5 pack/day cigarette tobacco use. Tobacco Use: Cigarettes Alcohol: None Drugs: None - *Family History Maternal History Items: - - Patient notes that he does not know any of his internal or paternal family history. Paternal History Items: - - Patient notes that he does not know any of his internal or paternal family history. Review of Systems Constitutional: Reports: Anorexia, Fever, Malaise, Weakness, Fatigue. Denies: Chills, Weight Change HEENT: Reports: Sore Throat. Denies: Head Aches, Sinus Congestion, Sinus Drainage Cardiovascular: Denies: Chest Pain, Palpitations Respiratory: Reports: Cough, Shortness of Breath, Shortness of breath at rest, Shortness of breath upon exertion. Denies: Sputum production, Wheezing Gastrointestinal: Reports: Diarrhea, Nausea, Vomiting. Denies: Abdominal Pain Genitourinary: Denies: Dysuria Musculoskeletal: Denies: Joint Pain, Joint Tenderness Skin: Denies: Rash, Wounds Neurological: Denies: Numbness, Tingling, Focal weakness Psychiatric: Reports: Anxiety, Depression. Denies: Homicidal Ideations, Suicidal Ideations Hematologic/ Lymphatic: Denies: Easy Bruising, Easy Bleeding VTE Information - Inpt Only VTE Present on Admission: No VTE Mechan Device Prophylaxis: SCD's VTE Pharm Prophylaxis ordered?: Yes Patient Problems: Active and Suspected Problems Sepsis (Acute) Streptococcal pharyngitis (Acute) Suspected 2019 novel coronavirus infection (Acute) Subjective: Seated upright in the ED bed, fatigued and ill-appearing. Objective: Physical Examination: General: awake, alert, oriented x 3 and cooperative, seated upright in the ED bed, fatigued and ill-appearing. Skin: normal color, turgor, no icterus, cyanosis. HEENT: AT/NC, EOMI, PERRLA, dry MM, posterior left greater than right white exudates, no carotid bruits or JVD noted. Lungs: Diminished breath sounds bilaterally, greater bases, moderate effort, no rales, ronchi or wheezing. Heart: Cardiac with regular rhythm; no gallop, rub audible. Abdomen: soft, NTTP, ND, mildly hyperactive BS, no HSM. Extremities: no cyanosis, clubbing, or edema. Neurological: patient awake, alert, oriented x 3; cognitive function appears baseline intact; pupils equally reactive to light and accomodation; cranial nerves II-XII grossly normal, moving all 4 extremities, no focal deficits, strength moderately global decrease secondary to acute presentation. Psychiatric: affect appears fatigued and ill-appearing, no acute evidence of depressive or anxiety feelings. - Physical Exam Vitals/I&O's: Vital Signs Temp Pulse Resp BP Pulse Ox 102 F H 111 H 20 H 104/65 95 12/10/19 21:29 12/10/19 21:29 12/10/19 21:29 12/10/19 21:29 12/10/19 21:29 Oxygen Delivery Method Room Air Weight: 173 lb Body Mass Index (BMI) 24.1 Microbiology Past 72 Hours 12/10/19 22:10 Mucosa - Throat Group A Streptococcus Rapid Screen - Preliminary Streptococcus Group A 12/10/19 22:00 Mucosa - Nasopharyngeal Rapid RSV (DFA) - Final 12/10/19 22:00 Mucosa - Nasopharyngeal Influenza Types A,B Direct FA (DAVIDA) - Final Laboratory Results 12/10/19 21:45: WBC 21.0 H, RBC 4.86, Hgb 14.7, Hct 43.8, MCV 90.1, MCH 30.2, MCHC 33.6, RDW Std Deviation 39.2, RDW Coeff of Ara 11.9, Plt Count 199, MPV 10.0, Immature Gran % (Auto) 0.900, Neut % (Auto) 87.7 H, Lymph % (Auto) 4.8 L, [facility] % (Auto) 5.9, Eos % (Auto) 0.4, Baso % (Auto) 0.3, Absolute Neuts (auto) 18.5 H, Absolute Lymphs (auto) 1.00, Nucleated RBC % 0 12/10/19 21:45: Sodium 137, Potassium 4.0, Chloride 105, Carbon Dioxide 25.0, Anion Gap 7, BUN 13, Creatinine 1.35 H, Estim Creat Clear Calc 80.57, Est GFR (MDRD) Af Amer 77, Est GFR (MDRD) Non-Af 64, BUN/Creatinine Ratio 9.6 L, Glucose 119 H, Calcium 9.7, Total Bilirubin 1.60 H, Direct Bilirubin 0.33 H, AST 23, ALT 43, Alkaline Phosphatase 68, Total Protein 7.6, Albumin 4.0, Globulin 3.6, Lipase 51 L 12/10/19 21:45: Lactic Acid 1.7 Current Medications Piperacillin Sod/Tazobactam (Sod 4.5 gm/ Sodium Chloride) 100 mls @ 200 mls/hr IV X1 ONE Stop: 12/10/19 23:32 Assessment/Plan All Active Problems No significant past medical history (Acute) Sepsis (Acute) Streptococcal pharyngitis (Acute) Suspected 2019 novel coronavirus infection (Acute) The patient is a 34 y/o M w/ PMHx: Anxiety/Depression, Chronic Diarrhea, Tobacco use who presents to the [facility] ED on 12/10/19 with history of initial onset significant sore throat with onset then of dry cough and high-grade fevers with dyspnea, worse with any effort in addition to nausea and bouts of emesis without any associated abdominal pain and ongoing chronic diarrhea which he notes has been unchanged x24 hours prompting ED presentation. 1. Acute Sepsis secondary to Acute Streptococcal Pharyngitis and ? Concurrent COVID-19: Will admit to the COVID unit, will maintain on oxygen with wean as tolerated to room air, PRN albuterol MDI, maintain on IV Rocephin especially given positive streptococcal assessment with leukocytosis and significant left shift concurrently in the setting of other concerning symptomatology, HOB, IS parameters, will obtain procalcitonin, CRP, CPK, Ferritin, LDH to stratify, continue supportive care including q 2 hour turning including prone given no prone bed availability and judicious hydration, repeat CXR in AM, await respiratory viral panel. Will closely monitor for worsening status for ARDS and multiorgan failure pending these labs and would consider COVID-19 testing and if worsening status would consider initiation of hydroxychloroquine with close EKG monitoring for QT prolongation with trending of the liver functions. If patient worsens with need for oxygen >6 L would plan intubation with ICU physician continued care. Bld cx x 2 obtained in the ED. 2. Tobacco Abuse: Encouraged cessation, inpatient consultation per RT, NR if desired. 3. History of Anxiety and Depression: Noted allergies to Floxin and sertraline, not on any regimen currently, encourage continued outpatient follow-up as needed. 4. GERD: Will maintain on famotidine. 5. DVT prophylaxis: SCDs, Lovenox. Inpatient E&M: 13433 Init Hosp L3
[2019-12-10 23:24] VITALS: BP 115/64; PULSE 96; RESP 20; TEMP 37.2; O2SAT 95
[2019-12-11] VITALS (12 sets, daily range): BP systolic 97–125; BP diastolic 48–90; PULSE 77–106; RESP 16–20; TEMP 37.1–39.1; O2SAT 96–100; BMI 24.0
[2019-12-11] MEDS: 0.9% Normal Saline 1,000 ML 125 ML IV ×3 (00:55→16:56)
[2019-12-11] MEDS: Enoxaparin 40 MG/0.4 ML Syringe SC (00:55)
[2019-12-11 01:21] LABS: Ferritin 115 ng/mL (26-388); LDH 160 U/L (87-241); Magnesium 1.3 mg/dL (1.6-2.6)
[2019-12-11] MEDS: Magnesium Sulfate 4gm/100mL 4 GM/100 ML IV.SOLN. IV (04:33)
[2019-12-11] MEDS: Phenol/Sodium Phenolate 180ML 5 SPRAY MM ×3 (04:33→15:01)
[2019-12-11] MEDS: Acetaminophen 325 MG Tablet 650 MG PO (05:50)
--- NOTE | 2019-12-11 05:55 | RAD_ITS ---
STUDY: X-RAY CHEST REASON FOR EXAM: Male, 34 years old. Dyspnea, cough, ? covid TECHNIQUE: Single AP portable view of the chest. COMPARISON: Comparison is made with prior study dated December 10, 2019. FINDINGS: EKG electrodes are seen. The lungs are clear and expanded. Scattered calcified granulomas. There is no demonstrated pleural abnormality. Normal size heart. Normal mediastinum and mey. Normal visualized pulmonary arteries. Normal visualized aortic arch and descending thoracic aorta. Normal visualized thoracic spine. Normal visualized ribs, clavicles, and shoulders. There is no demonstrated abnormality of the visualized soft tissue structures of the upper abdomen. RAD/Chest 1 View (Portable) IMPRESSION: No acute abnormality is seen. Electronically Signed: Malvin Hutchinson, at 8:12 EDT , Service support ,
[2019-12-11 06:38] LABS: Absolute Lymphocyte Count 0.94 X10^3/uL (0.83-4.51); Absolute Neutrophil Count 15.5 X10^3/uL (2.0-7.7); Basophil# 0.08 X10^3/uL; Basophil% 0.4 % (0-1); Eosinophil# 0.01 X10^3/uL; Eosinophils% 0.1 % (0-5); Hematocrit 36.6 % (40-54); Hemoglobin 12.3 g/dL (13.0-16.5); Lymphocyte # 0.94 X10^3/ul (4.0); Lymphocyte % 5.2 % (19-41); Mean Corp Hgb Conc 33.6 g/dL (32-36); Mean Corpuscular Hgb 30.4 pg (27.0-32.0); Mean Corpuscular Volume 90.6 fL (80-94); Mean Platelet Vol. 9.9 fl (6.2-12.0); Monocyte# 1.33 X10^3/uL; Monocyte% 7.4 % (0-10); NRBC Flagged by Analyzer 0 % (0-5); Neutrophil # 15.47 X10^3/uL (2.7-7.7); Neutrophil % 86.5 % (47-70); Platelet Count 171 K/mm3 (150-450); RBC Distribution Width CV 12.3 % (11.6-14.6); RBC Distribution Width SD 40.7 fl (35.1-43.9); Red Blood Count 4.04 M/mm3 (4.6-6.2); White Blood Count 17.9 K/mm3 (4.4-11.0)
[2019-12-11 06:41] LABS: AST(SGOT) 20 U/L (15-37); Alanine Aminotransfer ALT/SGPT 34 U/L (16-61); Albumin, Serum 3.1 g/dL (3.2-5.0); Alkaline Phosphatase 57 U/L (45-117); Anion Gap 5 (5-15); BUN 16 mg/dL (7-18); BUN/Creat Ratio 11.6 RATIO (10-20); Calcium,Total 8.3 mg/dL (8.5-10.1); Chloride 109 mmol/L (98-107); Creatinine, Serum 1.38 mg/dL (0.70-1.30); EST Glomerular Filtration Rate 62 mL/min (>60); Est Glom Filt Rate - Afr Amer 75 mL/min (>60); Estimated Creatinine Clearance 78.82 ml/min; Globulin 3.1 g/dL (2.2-4.2); Glucose 127 mg/dL (74-106); Potassium 3.9 mmol/L (3.5-5.1); Protein, Total 6.2 g/dL (6.4-8.2); Sodium Level 138 mmol/L (136-145)
[2019-12-11 06:47] LABS: Procalcitonin 0.45 ng/mL (0.00-0.09)
[2019-12-11] MEDS: Famotidine 20 MG Tablet PO ×2 (08:34→21:02)
--- NOTE | 2019-12-11 09:00 | CASEMGMT ---
Addendum entered by Shon Busch 12/11/19 13:53: Per Octavio DE LEON, pt would like Dr Cullen as his PCP. Per Jayla, [employer] medical secretary teacher, she has contacted Dr Mullins office, he is able to accept pt, and appts have been made. Jayla states she will inform pt of appts. Dr Cullen added to pt's demographic list as PCP. Addendum entered by Shon Busch 12/11/19 10:01: Octavio DE LEON, given local PCP lists and [employer] card to give to pt when he goes into room next. Original Note: MOISES ELIZONDO ASSESSMENT Pt febrile w/temp 102.3 this AM. Resp panel has been ordered. Awaiting results. Pt in isolation precautions. MOISES ELIZONDO placed call to pt's room and assessment completed via phone. Care providers, pharmacy, and demographics verified/updated at this time. PCP: No PCP. Pt made aware MOISES ELIZONDO will give list to pt's RN to bring into his room to look over, as pt will need to get established with PCP for follow-up after being discharged from [facility]. Specialists: None Preferred Pharmacy: [facility] Retail Insurance: [employer] Prescription Benefit: Yes Living Will/HPOA: States does not have LW or HCPOA . Pt made aware he can call SW if chooses in the future to utilize [facility] social work for advanced directive completion. Pt made aware MOISES ELIZONDO will give [employer] card to RN to provide to pt. Pt voices understanding. LNOK: Mother, Thelma. Living Arrangements: Lives with his Significant other, his 3 children and his brother. Transportation: Pt states drives self and states no transportation concerns at this time. States his brother will take him home @ discharge. DME: Denies using any DME. Currently on RA and not requiring oxygen at this time. CM to follow for any O2 needs @ d/c. HHC/SNF: No history of either. Pt wishes to return home and states has no concerns with going home at time of discharge. CM to follow for home oxygen needs and any further discharge planning/needs. Pt voices no further concerns/needs at this time. Advised pt to ask for CM if any further questions/concerns/needs arise. Voices understanding. PLAN: Home No O2 needed at this time. CM to follow for any needs. Pt does not have PCP. Pt will be provided with list of local PCP's. Karuna JHAN RN CM
--- NOTE | 2019-12-11 09:02 | PN_ITS ---
Patient Problems: Active and Suspected Problems Sepsis (Acute) Streptococcal pharyngitis (Acute) Suspected 2019 novel coronavirus infection (Acute) Sepsis syndrome (Acute) Streptococcal pharyngitis (Acute) Suspected 2019 novel coronavirus infection (Acute) Subjective: Doing well, feels like he wants to go home. No shortness of breath and no significant cough. Nausea has resolved. Vitals/I&O's: Vital Signs Temp Pulse Resp BP Pulse Ox 98.8 F 97 16 102/48 L 100 12/11/19 08:41 12/11/19 08:41 12/11/19 08:41 12/11/19 08:41 12/11/19 08:53 Oxygen Delivery Method Room Air Weight: 172 lb 6.424 oz Body Mass Index (BMI) 24.0 Intake and Output for Last 24 Hours 12/09/19 12/10/19 12/11/19 23:59 23:59 23:59 Intake Total 1000 / 1100 1406.25 / 1406.25 Balance 1000 / 1100 1406.25 / 1406.25 General: Alert, Oriented x3, Cooperative, No apparent distress HEENT: Atraumatic, PERRLA, EOMI, Normocephalic Oral: Moist Mucosa Neck: Supple, No JVD Lungs: Clear to auscultation, Normal air movement, No rhonchi, No wheeze, No rales Cardiovascular: Regular rate, Regular Rhythm, Normal S1, Normal S2, No murmurs Abdomen: Soft, Non Tender, Non-Distended, No Hepato-splenomegaly Extremities: No edema, Capillary Refill Less than 3 Seconds Skin: No rashes, No breakdown Neurological: Neuro grossly intact, Sensory exam intact to light touch and pain Psych/Mental Status: Normal Affect, Appropriate Microbiology Past 72 Hours 12/10/19 22:10 Mucosa - Throat Group A Streptococcus Rapid Screen - Final Streptococcus Group A 12/11/19 06:15 Urine, Clean Catch Streptococcus pneumoniae Antigen (M - Final 12/11/19 06:15 Urine, Clean Catch Legionella Antigen - Final 12/10/19 22:00 Mucosa - Nasopharyngeal Rapid RSV (DFA) - Final 12/10/19 22:00 Mucosa - Nasopharyngeal Influenza Types A,B Direct FA (DAVIDA) - Final Laboratory Results 12/10/19 21:45: WBC 21.0 H, RBC 4.86, Hgb 14.7, Hct 43.8, MCV 90.1, MCH 30.2, MCHC 33.6, RDW Std Deviation 39.2, RDW Coeff of Ara 11.9, Plt Count 199, MPV 10.0, Immature Gran % (Auto) 0.900, Neut % (Auto) 87.7 H, Lymph % (Auto) 4.8 L, [place] % (Auto) 5.9, Eos % (Auto) 0.4, Baso % (Auto) 0.3, Absolute Neuts (auto) 18.5 H, Absolute Lymphs (auto) 1.00, Nucleated RBC % 0 12/10/19 21:45: Sodium 137, Potassium 4.0, Chloride 105, Carbon Dioxide 25.0, Anion Gap 7, BUN 13, Creatinine 1.35 H, Estim Creat Clear Calc 80.57, Est GFR (MDRD) Af Amer 77, Est GFR (MDRD) Non-Af 64, BUN/Creatinine Ratio 9.6 L, Glucose 119 H, Calcium 9.7, Total Bilirubin 1.60 H, Direct Bilirubin 0.33 H, AST 23, ALT 43, Alkaline Phosphatase 68, Total Protein 7.6, Albumin 4.0, Globulin 3.6, Lipase 51 L 12/10/19 21:45: Lactic Acid 1.7 12/10/19 21:45: Magnesium 1.3 L, Ferritin 115, Lactate Dehydrogenase 160, C- React Prot Ext Range Pending 12/11/19 06:14: Procalcitonin 0.45 H 12/11/19 06:14: WBC 17.9 H, RBC 4.04 L, Hgb 12.3 L, Hct 36.6 L, MCV 90.6, MCH 30.4, MCHC 33.6, RDW Std Deviation 40.7, RDW Coeff of Ara 12.3, Plt Count 171, MPV 9.9, Immature Gran % (Auto) 0.400, Neut % (Auto) 86.5 H, Lymph % (Auto) 5.2 L, [place] % (Auto) 7.4, Eos % (Auto) 0.1, Baso % (Auto) 0.4, Absolute Neuts (auto) 15.5 H, Absolute Lymphs (auto) 0.94, Nucleated RBC % 0 12/11/19 06:14: Sodium 138, Potassium 3.9, Chloride 109 H, Carbon Dioxide 24.0, Anion Gap 5, BUN 16, Creatinine 1.38 H, Estim Creat Clear Calc 78.82, Est GFR (MDRD) Af Amer 75, Est GFR (MDRD) Non-Af 62, BUN/Creatinine Ratio 11.6, Glucose 127 H, Calcium 8.3 L, Total Bilirubin 1.30 H, AST 20, ALT 34, Alkaline Phosphatase 57, Total Protein 6.2 L, Albumin 3.1 L, Globulin 3.1, Albumin/Globulin Ratio 1.0 Current Medications Acetaminophen (Tylenol) 650 mg PO Q6H PRN PRN PRN Reason: Pain Score 1-10/Temp > 100.7 F Last Admin: 12/11/19 05:50 Dose: 650 mg Documented by: Al Hydroxide/Mg Hydroxide (Mylanta Ii) 30 ml PO Q6H PRN PRN PRN Reason: Gastric Burning Albuterol Sulfate (Ventolin Aerosols) 2.5 mg INHALATION Q4H PRN PRN PRN Reason: Dyspnea, wheezing Dextrose (D50w Syringe) 0 gm IV X1 PRN; Protocol PRN Reason: Hypoglycemia Enoxaparin Sodium (Lovenox) 40 mg SC DAILY [facility] Last Admin: 12/11/19 00:55 Dose: 40 mg Documented by: Famotidine (Pepcid) 20 mg PO BID [facility] Last Admin: 12/11/19 08:34 Dose: 20 mg Documented by: Glucagon () 1 mg IM .X1 PRN PRN Reason: Hypoglycemia Guaifenesin (Robitussin) 20 ml PO Q4H PRN PRN PRN Reason: COUGH Hydralazine HCl (Apresoline Iv) 10 mg IV Q4H PRN PRN PRN Reason: SBP > 160 Sodium Chloride () 1,000 mls @ 125 mls/hr IV .Q8H [facility] Last Admin: 12/11/19 08:34 Dose: 125 mls/hr Documented by: Ceftriaxone Sodium 2 gm/ (Sodium Chloride) 50 mls @ 100 mls/hr IV Q24 [facility] Last Admin: 12/11/19 08:34 Dose: 100 mls/hr Documented by: Melatonin (Melatonin) 3 mg PO QHS PRN PRN PRN Reason: INSOMNIA Morphine Sulfate () 2 mg IV Q3H PRN PRN PRN Reason: Pain Score 6-10/10 Ondansetron HCl (Zofran) 4 mg IV Q8H PRN PRN PRN Reason: NAUSEA/VOMITING Phenol/Menthol (Chloraseptic (Bkc)) 5 spray MM Q2H PRN PRN PRN Reason: sore throat Last Admin: 12/11/19 04:33 Dose: 5 spray Documented by: Prochlorperazine Edisylate (Compazine Iv) 5 mg IV Q4H PRN PRN PRN Reason: Breakthrough Nausea/Vomiting Sodium Chloride () 10 - 40 ml IV UD PRN PRN Reason: SALINE FLUSH Throat Lozenges (Cepacol Sore Throat Lozenge) 1 lozenge MUCOUS MEM Q2H PRN PRN PRN Reason: SORE THROAT STROKE Vital Signs/Narrative: Vital Signs Temp Pulse Resp BP Pulse Ox 12/11/19 08:53 100 12/11/19 08:41 98.8 F 97 16 102/48 L 100 12/11/19 07:26 87 12/11/19 05:47 102.3 F H Medical Necessity - Tobacco Use Smoking Status: Current every day smoker Tobacco Use: Cigarettes Assessment/Plan All Active Problems No significant past medical history (Acute) Sepsis (Acute) Streptococcal pharyngitis (Acute) Suspected 2019 novel coronavirus infection (Acute) Sepsis syndrome (Acute) Streptococcal pharyngitis (Acute) Suspected 2019 novel coronavirus infection (Acute) 1. Sepsis secondary to group A strep pharyngitis/tobacco abuse -We will send a coronavirus test since he had a cough and a fever, chest x-ray is normal suspicion is low -If he meets [facility] criteria for testing then we will keep him for another 24 to 48 hours to obtain results, however if he does not then we will plan on discharge tomorrow home -Continue with Rocephin, will plan to discharge on a penicillin -Influenza and RSV are negative, respiratory panel is pending, blood cultures are also pending, urine strep and Legionella antigens are negative -100% on room air -Advised cessation of all tobacco products 2. Anxiety/depression -He is allergic to fluoxetine and sertraline -He does not take anything currently, will need to follow-up as an outpatient as needed 3. GERD -Stable -Continue with Pepcid DVT: Lovenox Inpatient E&M: 14752 Subs Hosp L2
[2019-12-11] MEDS: BENZOCAINE/MENTHOL 1 LOZENGE MUCOUS MEM (21:02)
[2019-12-12] MEDS: 0.9% Normal Saline 1,000 ML 125 ML IV ×3 (00:37→16:50)
[2019-12-12 00:38] VITALS: BP 104/43; PULSE 102; RESP 20; TEMP 37.7; O2SAT 97
[2019-12-12] MEDS: BENZOCAINE/MENTHOL 1 LOZENGE MUCOUS MEM ×3 (00:41→20:48)
[2019-12-12 05:56] VITALS: BP 108/64; PULSE 94; RESP 18; TEMP 37.4; O2SAT 97
[2019-12-12 07:05] LABS: Absolute Lymphocyte Count 2.15 X10^3/uL (0.83-4.51); Absolute Neutrophil Count 13.7 X10^3/uL (2.0-7.7); Basophil# 0.08 X10^3/uL; Basophil% 0.5 % (0-1); Eosinophil# 0.03 X10^3/uL; Eosinophils% 0.2 % (0-5); Hematocrit 36.1 % (40-54); Lymphocyte # 2.15 X10^3/ul (4.0); Lymphocyte % 12.5 % (19-41); Mean Corp Hgb Conc 33.2 g/dL (32-36); Mean Corpuscular Hgb 30.5 pg (27.0-32.0); Mean Corpuscular Volume 91.9 fL (80-94); Mean Platelet Vol. 9.8 fl (6.2-12.0); Monocyte# 1.14 X10^3/uL; Monocyte% 6.6 % (0-10); NRBC Flagged by Analyzer 0 % (0-5); Neutrophil # 13.66 X10^3/uL (2.7-7.7); Neutrophil % 79.5 % (47-70); Platelet Count 165 K/mm3 (150-450); RBC Distribution Width CV 12.1 % (11.6-14.6); RBC Distribution Width SD 41.1 fl (35.1-43.9); Red Blood Count 3.93 M/mm3 (4.6-6.2); White Blood Count 17.2 K/mm3 (4.4-11.0)
[2019-12-12 07:38] VITALS: O2SAT 97
[2019-12-12 07:40] LABS: Anion Gap 7 (5-15); BUN 7 mg/dL (7-18); BUN/Creat Ratio 6.9 RATIO (10-20); Calcium,Total 8.3 mg/dL (8.5-10.1); Chloride 104 mmol/L (98-107); Creatinine, Serum 1.02 mg/dL (0.70-1.30); EST Glomerular Filtration Rate 88 mL/min (>60); Est Glom Filt Rate - Afr Amer 106 mL/min (>60); Estimated Creatinine Clearance 106.63 ml/min; Glucose 103 mg/dL (74-106); Potassium 3.8 mmol/L (3.5-5.1); Sodium Level 136 mmol/L (136-145)
--- NOTE | 2019-12-12 08:53 | PN_ITS ---
Patient Problems: Active and Suspected Problems Sepsis (Acute) Streptococcal pharyngitis (Acute) Suspected 2019 novel coronavirus infection (Acute) Sepsis syndrome (Acute) Streptococcal pharyngitis (Acute) Suspected 2019 novel coronavirus infection (Acute) Subjective: Feels better, tolerating a diet. Kidney function has improved. Still with a sore throat. Vitals/I&O's: Vital Signs Temp Pulse Resp BP Pulse Ox 99.3 F H 94 18 108/64 97 12/12/19 05:56 12/12/19 05:56 12/12/19 05:56 12/12/19 05:56 12/12/19 07:38 Oxygen Delivery Method Room Air Weight: 172 lb 6.424 oz Body Mass Index (BMI) 24.0 Intake and Output for Last 24 Hours 12/10/19 12/11/19 12/12/19 23:59 23:59 23:59 Intake Total 1000 / 1100 2936.25 / 3136.25 2285.42 / 2285.42 Balance 1000 / 1100 2936.25 / 3136.25 2285.42 / 2285.42 General: Alert, Oriented x3, Cooperative, No apparent distress HEENT: Atraumatic, PERRLA, EOMI, Normocephalic Oral: Moist Mucosa Neck: Supple, No JVD Lungs: Clear to auscultation, Normal air movement, No rhonchi, No wheeze, No rales Cardiovascular: Regular rate, Regular Rhythm, Normal S1, Normal S2, No murmurs Abdomen: Soft, Non Tender, Non-Distended, No Hepato-splenomegaly Extremities: No edema, Capillary Refill Less than 3 Seconds Skin: No rashes, No breakdown Neurological: Neuro grossly intact, Sensory exam intact to light touch and pain Psych/Mental Status: Normal Affect, Appropriate Microbiology Past 72 Hours 12/11/19 08:12 Mucosa - Nasopharyngeal Respiratory Panel (PCR) - Final 12/11/19 04:30 Sputum, Expectorated/Coughed Gram Stain - Final 12/10/19 22:10 Mucosa - Throat Group A Streptococcus Rapid Screen - Final Streptococcus Group A 12/11/19 06:15 Urine, Clean Catch Streptococcus pneumoniae Antigen (M - Final 12/11/19 06:15 Urine, Clean Catch Legionella Antigen - Final 12/10/19 22:00 Mucosa - Nasopharyngeal Rapid RSV (DFA) - Final 12/10/19 22:00 Mucosa - Nasopharyngeal Influenza Types A,B Direct FA (DAVIDA) - Final Laboratory Results 12/10/19 21:45: C-React Prot Ext Range 31.20 H 12/11/19 08:12: COVID-19 (RFEDI) Pending 12/12/19 06:35: WBC 17.2 H, RBC 3.93 L, Hgb 12.0 L, Hct 36.1 L, MCV 91.9, MCH 30.5, MCHC 33.2, RDW Std Deviation 41.1, RDW Coeff of Ara 12.1, Plt Count 165, MPV 9.8, Immature Gran % (Auto) 0.700, Neut % (Auto) 79.5 H, Lymph % (Auto) 12.5 L, [place] % (Auto) 6.6, Eos % (Auto) 0.2, Baso % (Auto) 0.5, Absolute Neuts (auto) 13.7 H, Absolute Lymphs (auto) 2.15, Nucleated RBC % 0 12/12/19 06:35: Sodium 136, Potassium 3.8, Chloride 104, Carbon Dioxide 25.0, Anion Gap 7, BUN 7, Creatinine 1.02, Estim Creat Clear Calc 106.63, Est GFR (MDRD) Af Amer 106, Est GFR (MDRD) Non-Af 88, BUN/Creatinine Ratio 6.9 L, Glucose 103, Calcium 8.3 L Current Medications Acetaminophen (Tylenol) 650 mg PO Q6H PRN PRN PRN Reason: Pain Score 1-10/Temp > 100.7 F Last Admin: 12/11/19 05:50 Dose: 650 mg Documented by: Al Hydroxide/Mg Hydroxide (Mylanta Ii) 30 ml PO Q6H PRN PRN PRN Reason: Gastric Burning Albuterol Sulfate (Ventolin Aerosols) 2.5 mg INHALATION Q4H PRN PRN PRN Reason: Dyspnea, wheezing Dextrose (D50w Syringe) 0 gm IV X1 PRN; Protocol PRN Reason: Hypoglycemia Enoxaparin Sodium (Lovenox) 40 mg SC DAILY [facility] Last Admin: 12/11/19 00:55 Dose: 40 mg Documented by: Famotidine (Pepcid) 20 mg PO BID [facility] Last Admin: 12/11/19 21:02 Dose: 20 mg Documented by: Glucagon () 1 mg IM .X1 PRN PRN Reason: Hypoglycemia Guaifenesin (Robitussin) 20 ml PO Q4H PRN PRN PRN Reason: COUGH Hydralazine HCl (Apresoline Iv) 10 mg IV Q4H PRN PRN PRN Reason: SBP > 160 Sodium Chloride () 1,000 mls @ 125 mls/hr IV .Q8H RM Last Admin: 12/12/19 08:25 Dose: 125 mls/hr Documented by: Ceftriaxone Sodium 2 gm/ (Sodium Chloride) 50 mls @ 100 mls/hr IV Q24 [facility] Last Infusion: 12/11/19 09:07 Dose: Infused Documented by: Melatonin (Melatonin) 3 mg PO QHS PRN PRN PRN Reason: INSOMNIA Morphine Sulfate () 2 mg IV Q3H PRN PRN PRN Reason: Pain Score 6-10/10 Ondansetron HCl (Zofran) 4 mg IV Q8H PRN PRN PRN Reason: NAUSEA/VOMITING Phenol/Menthol (Chloraseptic (Bkc)) 5 spray MM Q2H PRN PRN PRN Reason: sore throat Last Admin: 12/11/19 15:01 Dose: 5 spray Documented by: Prochlorperazine Edisylate (Compazine Iv) 5 mg IV Q4H PRN PRN PRN Reason: Breakthrough Nausea/Vomiting Sodium Chloride () 10 - 40 ml IV UD PRN PRN Reason: SALINE FLUSH Throat Lozenges (Cepacol Sore Throat Lozenge) 1 lozenge MUCOUS MEM Q2H PRN PRN PRN Reason: SORE THROAT Last Admin: 12/12/19 05:57 Dose: 1 lozenge Documented by: STROKE Vital Signs/Narrative: Vital Signs Temp Pulse Resp BP Pulse Ox 12/12/19 07:38 97 12/12/19 05:56 99.3 F H 94 18 108/64 97 Medical Necessity - Tobacco Use Smoking Status: Current every day smoker Tobacco Use: Cigarettes Assessment/Plan All Active Problems No significant past medical history (Acute) Sepsis (Acute) Streptococcal pharyngitis (Acute) Suspected 2019 novel coronavirus infection (Acute) Sepsis syndrome (Acute) Streptococcal pharyngitis (Acute) Suspected 2019 novel coronavirus infection (Acute) 1. Sepsis secondary to group A strep pharyngitis/tobacco abuse -We will send a coronavirus test since he had a cough and a fever, chest x-ray is normal suspicion is low -Coronavirus was sent yesterday for testing of ODH -Continue with Rocephin, white count is 17.2 down from 17.9 -Influenza and RSV are negative, respiratory panel is also negative, blood cultures are also pending, urine strep and Legionella antigens are negative -Advised cessation of all tobacco products -Creatinine has also normalized to 1.02 2. Anxiety/depression -He is allergic to fluoxetine and sertraline -He does not take anything currently, will need to follow-up as an outpatient as needed 3. GERD -Stable -Continue with Pepcid DVT: Lovenox Inpatient E&M: 44986 Subs Hosp L2
[2019-12-12] MEDS: Famotidine 20 MG Tablet PO ×2 (09:39→20:48)
[2019-12-12] MEDS: Enoxaparin 40 MG/0.4 ML Syringe SC (09:40)
[2019-12-12 11:55] VITALS: BP 107/52; PULSE 89; RESP 17; TEMP 36.9; O2SAT 98
[2019-12-12] MEDS: Acetaminophen 325 MG Tablet 650 MG PO ×2 (12:03→20:48)
[2019-12-12 17:40] VITALS: BP 110/65; PULSE 75; RESP 16; TEMP 36.7; O2SAT 99
[2019-12-12 20:50] VITALS: BP 123/53; PULSE 93; RESP 16; TEMP 37.2; O2SAT 97
[2019-12-13] MEDS: 0.9% Normal Saline 1,000 ML 125 ML IV (00:01)
[2019-12-13 03:06] VITALS: BP 116/67; PULSE 79; RESP 16; TEMP 37; O2SAT 95
[2019-12-13] MEDS: BENZOCAINE/MENTHOL 1 LOZENGE MUCOUS MEM (03:11)
[2019-12-13 07:09] LABS: Absolute Lymphocyte Count 1.52 X10^3/uL (0.83-4.51); Absolute Neutrophil Count 7.9 X10^3/uL (2.0-7.7); Basophil# 0.05 X10^3/uL; Basophil% 0.5 % (0-1); Eosinophil# 0.09 X10^3/uL; Eosinophils% 0.9 % (0-5); Hematocrit 37.1 % (40-54); Hemoglobin 12.3 g/dL (13.0-16.5); Lymphocyte # 1.52 X10^3/ul (4.0); Lymphocyte % 14.4 % (19-41); Mean Corp Hgb Conc 33.2 g/dL (32-36); Mean Corpuscular Hgb 30.4 pg (27.0-32.0); Mean Corpuscular Volume 91.6 fL (80-94); Mean Platelet Vol. 9.8 fl (6.2-12.0); Monocyte# 0.98 X10^3/uL; Monocyte% 9.3 % (0-10); NRBC Flagged by Analyzer 0 % (0-5); Neutrophil # 7.89 X10^3/uL (2.7-7.7); Neutrophil % 74.5 % (47-70); Platelet Count 181 K/mm3 (150-450); RBC Distribution Width CV 12.5 % (11.6-14.6); RBC Distribution Width SD 42.4 fl (35.1-43.9); Red Blood Count 4.05 M/mm3 (4.6-6.2); White Blood Count 10.6 K/mm3 (4.4-11.0)
[2019-12-13 08:12] VITALS: BP 114/69; PULSE 81; RESP 18; TEMP 37.3; O2SAT 97
--- NOTE | 2019-12-13 08:37 | PCM.DC ---
- Discharge Diagnoses Current Active Problems: Current Active and Chronic Problems Sepsis (Acute) Streptococcal pharyngitis (Acute) Suspected 2019 novel coronavirus infection (Acute) Anxiety and depression (Chronic) Tobacco use (Chronic) Chronic diarrhea (Chronic) Sepsis syndrome (Acute) Streptococcal pharyngitis (Acute) Suspected 2019 novel coronavirus infection (Acute) You will use the following diet at home:: Regular Your food should be the consistency of: Regular Your liquids should be the consistency of: Regular/Thin Discharge Activity: Return to Normal Activity Call your doctor if you observe: Fever of 101 or Higher, Shortness of breath, Dizziness, Fainting spells, Swelling in the ankles, Chest pain, Increased palpitations (irregular heartbeat) Additional Instructions: Please stay in self-isolation until you have been advised on the result of your coronavirus test. If the test is positive then you must remain in self isolation for 14 days. Allergies/Adverse Reactions: Allergies fluoxetine HCl [From Prozac] Adverse Reaction (Verified 12/10/19 21:30) Other ANXIETY ATTACK sertraline [From Zoloft] Adverse Reaction (Verified 12/10/19 21:30) Other PANIC ATTACK Medications to take at Discharge Cefdinir [Omnicef [equiv]] 300 mg PO Q12H #10 cap 12/13/19 The following prescriptions were given: Cefdinir [Omnicef [equiv]] 300 mg PO Q12H #10 cap Transmission Status: Pending to [facility] Primary Care Physician: Care Physician,No Primary [NON-STAFF] - Test Results: Test results from this visit will be discussed in further detail at your follow-up appointment, if applicable. Please Follow Up With: oraila ZEPEDA When: 01/09/2020 Please Follow Up With: Brandon Cullen MD When: 03/12/2020
--- NOTE | 2019-12-13 08:40 | DS.PCM_ITS ---
Discharge Date and Diagnosis - Problem List Patient Problems: Active and Suspected Problems Sepsis (Acute) Streptococcal pharyngitis (Acute) Suspected 2019 novel coronavirus infection (Acute) Sepsis syndrome (Acute) Streptococcal pharyngitis (Acute) Suspected 2019 novel coronavirus infection (Acute) Date of Admission: 12/10/19 Date of Discharge: 12/13/19 - Primary Discharge Diagnosis Active and Suspected Problems Sepsis (Acute) Streptococcal pharyngitis (Acute) Suspected 2019 novel coronavirus infection (Acute) Sepsis syndrome (Acute) Streptococcal pharyngitis (Acute) Suspected 2019 novel coronavirus infection (Acute) - Secondary Discharge Diagnosis Chronic Problems Anxiety and depression (Chronic) Tobacco use (Chronic) Chronic diarrhea (Chronic) Hospital Course and Treatment Imaging Results: CXR: IMPRESSION: Normal x-ray examination of the chest. Consults: None Operations: None Procedures: None Summary of Care Provided: Per HPI:The patient is a 34 y/o M w/ PMHx: Anxiety/Depression, Chronic Diarrhea, Tobacco use who presents to the [facility] ED on 12/10/19 with history of initial onset significant sore throat with onset then of dry cough and high-grade fevers with dyspnea, worse with any effort in addition to nausea and bouts of emesis without any associated abdominal pain and ongoing chronic diarrhea which he notes has been unchanged x24 hours prompting ED presentation. He has several family members that he lives with and he denies them having any similar symptoms. In the ED work-up included T102, heart rate 111, BP 104/65, respiratory rate 20, 95% on room air, CBC with WBC 21, hemoglobin 14.7, platelet 199 with left shift with mild lymphopenia also concurrently noted, CMP with BUN/creatinine 13/1.35, glucose 119, lactic acid 1.7, total bilirubin 1.6, direct bilirubin 0.33, AST/ALT 23/43, lipase 51, chest x-ray with no acute cardiopulmonary findings. In the ED patient ministered normal saline bolus, Zosyn, Zofran, Toradol 30 mg IV x1 and Tylenol 1000 mg p.o. x1. Hospital Course: 1. Sepsis secondary to group A strep pharyngitis/tobacco [id number] male presented to the ED with sore throat and then a dry cough with high-grade fevers and dyspnea. He did not require any oxygen chest x-ray was unremarkable. A coronavirus test was sent however there is a delay in getting the test back from [facility] given the amount of test that are being done currently. His white blood cell count on admission was 21, and on the day of discharge has normalized to 10.6. He was started on Rocephin and will be discharged home today on Omnicef for 5 more days. I did discuss with him the need for self isolation until his coronavirus test comes back either positive or negative. If it is positive he will need to self quarantine for 14 days. I also discussed with him that if he does become more short of breath or dyspneic that he is to come back into the hospital for further evaluation. I discussed with him the risks and benefits of going home and he expressed understanding. 2. His other medical diagnoses were evaluated and his home medications were continued where appropriate Patient Problems: Active and Suspected Problems Sepsis (Acute) Streptococcal pharyngitis (Acute) Suspected 2019 novel coronavirus infection (Acute) Sepsis syndrome (Acute) Streptococcal pharyngitis (Acute) Suspected 2019 novel coronavirus infection (Acute) - Physical Exam Vitals/I&O's: Vital Signs Temp Pulse Resp BP Pulse Ox 99.1 F 81 18 114/69 97 12/13/19 08:12 12/13/19 08:12 12/13/19 08:12 12/13/19 08:12 12/13/19 08:12 Oxygen Delivery Method Room Air Weight: 172 lb 6.424 oz Body Mass Index (BMI) 24.0 Intake and Output for Last 24 Hours 12/11/19 12/12/19 12/13/19 23:59 23:59 23:59 Intake Total 2936.25 / 3136.25 4065.00 / 4065.00 1897.92 / 1897.92 Balance 2936.25 / 3136.25 4065.00 / 4065.00 1897.92 / 1897.92 General: Alert, Oriented x3, Cooperative, No apparent distress HEENT: Atraumatic, PERRLA, EOMI, Normocephalic Oral: Moist Mucosa Neck: Supple, No JVD Lungs: Clear to auscultation, Normal air movement, No rhonchi, No wheeze, No rales Cardiovascular: Regular rate, Regular Rhythm, Normal S1, Normal S2, No murmurs Abdomen: Soft, Non Tender, Non-Distended, No Hepato-splenomegaly Extremities: No edema, Capillary Refill Less than 3 Seconds Skin: No rashes, No breakdown Neurological: Neuro grossly intact, Sensory exam intact to light touch and pain Psych/Mental Status: Normal Affect, Appropriate Microbiology Past 72 Hours 12/11/19 04:30 Sputum, Expectorated/Coughed Gram Stain - Final 12/11/19 04:30 Sputum, Expectorated/Coughed Respiratory Culture - Final Streptococcus group A 12/10/19 21:45 Blood Culture (Wb) - Anticubital Left Blood Culture - Preliminary No growth in 48 hours. 12/10/19 22:15 Blood Culture (Wb) - Anticubital Right Blood Culture - Preliminary No growth in 48 hours. 12/11/19 08:12 Mucosa - Nasopharyngeal Respiratory Panel (PCR) - Final 12/10/19 22:10 Mucosa - Throat Group A Streptococcus Rapid Screen - Final Streptococcus Group A 12/11/19 06:15 Urine, Clean Catch Streptococcus pneumoniae Antigen (M - Final 12/11/19 06:15 Urine, Clean Catch Legionella Antigen - Final 12/10/19 22:00 Mucosa - Nasopharyngeal Rapid RSV (DFA) - Final 12/10/19 22:00 Mucosa - Nasopharyngeal Influenza Types A,B Direct FA (DAVIDA) - Final Laboratory Results 12/13/19 06:45: WBC 10.6, RBC 4.05 L, Hgb 12.3 L, Hct 37.1 L, MCV 91.6, MCH 30.4, MCHC 33.2, RDW Std Deviation 42.4, RDW Coeff of Ara 12.5, Plt Count 181, MPV 9.8, Immature Gran % (Auto) 0.400, Neut % (Auto) 74.5 H, Lymph % (Auto) 14.4 L, [place] % (Auto) 9.3, Eos % (Auto) 0.9, Baso % (Auto) 0.5, Absolute Neuts (auto) 7.9 H, Absolute Lymphs (auto) 1.52, Nucleated RBC % 0 Current Medications Acetaminophen (Tylenol) 650 mg PO Q6H PRN PRN PRN Reason: Pain Score 1-10/Temp > 100.7 F Last Admin: 12/12/19 20:48 Dose: 650 mg Documented by: Al Hydroxide/Mg Hydroxide (Mylanta Ii) 30 ml PO Q6H PRN PRN PRN Reason: Gastric Burning Albuterol Sulfate (Ventolin Aerosols) 2.5 mg INHALATION Q4H PRN PRN PRN Reason: Dyspnea, wheezing Dextrose (D50w Syringe) 0 gm IV X1 PRN; Protocol PRN Reason: Hypoglycemia Enoxaparin Sodium (Lovenox) 40 mg SC DAILY [facility] Last Admin: 12/12/19 09:40 Dose: 40 mg Documented by: Famotidine (Pepcid) 20 mg PO BID [facility] Last Admin: 12/12/19 20:48 Dose: 20 mg Documented by: Glucagon () 1 mg IM .X1 PRN PRN Reason: Hypoglycemia Guaifenesin (Robitussin) 20 ml PO Q4H PRN PRN PRN Reason: COUGH Hydralazine HCl (Apresoline Iv) 10 mg IV Q4H PRN PRN PRN Reason: SBP > 160 Sodium Chloride () 1,000 mls @ 125 mls/hr IV .Q8H [facility] Last Infusion: 12/13/19 08:10 Dose: Infused Documented by: Ceftriaxone Sodium 2 gm/ (Sodium Chloride) 50 mls @ 100 mls/hr IV Q24 [facility] Last Infusion: 12/12/19 10:08 Dose: Infused Documented by: Melatonin (Melatonin) 3 mg PO QHS PRN PRN PRN Reason: INSOMNIA Morphine Sulfate () 2 mg IV Q3H PRN PRN PRN Reason: Pain Score 6-10/10 Ondansetron HCl (Zofran) 4 mg IV Q8H PRN PRN PRN Reason: NAUSEA/VOMITING Phenol/Menthol (Chloraseptic (Bkc)) 5 spray MM Q2H PRN PRN PRN Reason: sore throat Last Admin: 12/11/19 15:01 Dose: 5 spray Documented by: Prochlorperazine Edisylate (Compazine Iv) 5 mg IV Q4H PRN PRN PRN Reason: Breakthrough Nausea/Vomiting Sodium Chloride () 10 - 40 ml IV UD PRN PRN Reason: SALINE FLUSH Throat Lozenges (Cepacol Sore Throat Lozenge) 1 lozenge MUCOUS MEM Q2H PRN PRN PRN Reason: SORE THROAT Last Admin: 12/13/19 03:11 Dose: 1 lozenge Documented by: Discharge Activity: Return to Normal Activity Call your doctor if you observe: Fever of 101 or Higher, Shortness of breath, Dizziness, Fainting spells, Swelling in the ankles, Chest pain, Increased palpitations (irregular heartbeat) Home Medications: Medications to take at Discharge Cefdinir [Omnicef [equiv]] 300 mg PO Q12H #10 cap 12/13/19 Following Prescrptions Were Given to Patient: Cefdinir [Omnicef [equiv]] 300 mg PO Q12H #10 cap Transmission Status: Pending to [facility] Primary Care Physician: Care Physician,No Primary [NON-STAFF] - Please Follow Up With: oralia ZEPEDA When: 01/09/2020 Please Follow Up With: Brandon Cullen MD When: 03/12/2020 Disposition: Home Minutes spent on discharge:: 35 Patient Condition:: Stable Medical Necessity - Tobacco Use Smoking Status: Current every day smoker Tobacco Use: Cigarettes Meaningful Use Info Meaningful Use Diagnoses (Choose all that apply): None applicable Inpatient E&M: 55115 Disch Hosp
--- NOTE | 2019-12-13 10:37 | CASEMGMT ---
RN CM DC Note: Pt to return home on dc. No oxygen needed. Teaching information given to pt by nursing and physician re: home isolation. Pt will go home, has access to medications, food and no dc needs identified. Amanda JHAN RN ACM
== END 2019-12-13 11:35 | disposition home or self-care (01) | DRG 872 ==
LOC: ED 23:27 → MS2 12-11 07:20
PROVIDERS: Admitting Provider Family Medicine; Emergency Provider Emergency Medicine; PCP Family Medicine; Visit Provider Family Medicine
DX: A40.0 Sepsis due to streptococcus, group A (principal); J02.0 Streptococcal pharyngitis; K52.9 Noninfective gastroenteritis and colitis, unspecified; K21.9 Gastro-esophageal reflux disease without esophagitis; F32.9 Major depressive disorder, single episode, unspecified; F41.9 Anxiety disorder, unspecified; F17.210 Nicotine dependence, cigarettes, uncomplicated
CPT/HCPCS: 36415; 71045; 80048; 80053; 80076; 82728; 83605; 83615; 83690; 83735; 84145; 85025; 86140; 87040; 87070; 87077; 87205; 87449; 87633; 87635; 87804; 87807; 87880; 99285; 99406; J7030; J0696; J2405; U0004

== ENCOUNTER 2019-12-30 17:02 | Emergency (ER) | payer OTHER, MEDICAID, SELFPAY ==
[2019-12-11 00:25] VITALS: BMI 24.0
[2019-12-30 17:03] VITALS: BP 119/79; PULSE 85; RESP 18; TEMP 36.1; O2SAT 99; BMI 24.3
--- NOTE | 2019-12-30 17:16 | CT_ITS ---
STUDY: CT ABDOMEN AND PELVIS WITHOUT CONTRAST REASON FOR EXAM: Male, 34 years old. Left-sided abdominal pain. RADIATION DOSAGE (If Supplied By Facility): CTDIvol = ( 6.41 ) mGy, DLP = ( 336.37 ) mGycm TECHNIQUE: Transaxial images were obtained from the dome of the diaphragm to the symphysis pubis without oral contrast, and without intravenous contrast. Sagittal and coronal images were reconstructed. Individualized dose optimization techniques were used for this CT. COMPARISON: November 04, 2015. FINDINGS: The visualized lung bases are unremarkable. The visualized portions of the heart are within normal limits. Normal liver. Normal gallbladder and extrahepatic biliary system. Normal spleen. Normal pancreas. Normal bilateral adrenal glands. Normal right kidney. The left kidney appears mildly malrotated. It is otherwise unremarkable. Normal visualized stomach. Normal small intestine. Normal colon. The appendix is visualized and appears normal. Normal abdominal aorta. Normal inferior vena cava. Normal retroperitoneum. Normal urinary bladder. Normal prostate. There is no pelvic lymphadenopathy. No free air or free fluid is seen within the peritoneal cavity. Normal abdominal wall. Normal osseous structures. CT/Abdomen/Pelvis without Cont IMPRESSION: No acute intra-abdominal or pelvic process or interval change. Electronically Signed: Ted Gaitan DO at 17:51 EDT Tel [phone], Service support ,
[2019-12-30 17:17] LABS: Bacteria 0 SEEN /hpf (None Seen); Mucous, Urine 0 SEEN /hpf (<or=2+); Red Blood Cells-Urine 0 SEEN /hpf (0-5); Squamous Epithelial Cells - UA 0 SEEN /hpf (0-5); White Blood Cells 0 SEEN /hpf (0-5)
--- NOTE | 2019-12-30 17:17 | ED.VIS.GEN ---
History of Present Illness Chief Complaint: Flank Pain Narrative: This patient is a 34-year-old male who presents with lower back pain. This is been going on for about 1 month. He was recently hospitalized for sepsis and suspected COVID-19 infection. He reports that he was treated with antibiotics and ultimately his viral testing did come back negative. In the mornings he has bilateral lower back pain that improves through the day. At times it is more one side than another but not preferentially one side or the other. He does note that sometimes he gets radiation into the lower abdomen on the left only. No recent illness in the last few days otherwise. Denies fever cough chest pain shortness of breath vomiting diarrhea. No dysuria frequency or urgency. He otherwise denies medical history and is on no daily medications. His pain is worse with ambulation. His pain is worse with changes in position. Past Medical History - Allergies and Home Meds Allergies/Adverse Reactions: Allergies fluoxetine HCl [From Prozac] Adverse Reaction (Verified 12/30/19 17:04) Other ANXIETY ATTACK sertraline [From Zoloft] Adverse Reaction (Verified 12/30/19 17:04) Other PANIC ATTACK Primary Care Physician: Brandon Cullen MD [Primary Care Provider] - Past Medical History: None Surgical History: - - Teeth removal. Smoking Status: Current every day smoker - Family History Maternal Family History: Reports: - - Patient notes that he does not know any of his internal or paternal family history. Paternal Family History: Reports: - - Patient notes that he does not know any of his internal or paternal family history. Review of Systems All systems negative except as indicated General: Denies: Fever Eyes: Denies: Visual changes - bilaterally ENT: Denies: Bilateral ear pain Cardiovascular: Denies: Chest pain Respiratory: Denies: Dyspnea Gastrointestinal: Denies: Abdominal pain, Nausea, Vomiting, Diarrhea Genitourinary: Denies: Dysuria, Frequency Musculoskeletal: Reports: Back pain Skin: Denies: Rash Neurological: Denies: Headache Physical Exam Vital Signs/Narrative: Vital Signs Temp Pulse Resp BP Pulse Ox 12/30/19 17:03 97 F L 85 18 119/79 99 Inital Vital Signs reviewed: Yes General: Well nourished Head: Normocephalic Eyes: EOMI ENT: Moist mucous membranes Neck: Supple Cardiovascular: Regular rate, Regular rhythm Respiratory: No distress, CTA bilaterally Abdomen: Soft, Nontender, Nondistended Back: Nontender Extremities: Nontender Skin: Normal color Neurological: Alert, Oriented x3, Normal Strength, Normal Sensation Psychological: Normal affect Diagnostic/Tx/Re-eval Impressions Abdomen/Pelvis CT 12/30/19 17:16 IMPRESSION: No acute intra-abdominal or pelvic process or interval change. Electronically Signed: Ted Gaitan DO at 17:51 EDT Tel [phone], Service support , 12/30/19 17:16 Abdomen/Pelvis without Cont [CT] Stat Laboratory Results 12/30/19 12/30/19 12/30/19 17:10 17:34 17:34 WBC 7.4 RBC 4.67 Hgb 13.8 Hct 42.7 MCV 91.4 MCH 29.6 MCHC 32.3 RDW Std Deviation 40.5 RDW Coeff of Ara 12.1 Plt Count 304 MPV 9.2 Immature Gran % (Auto) 0.300 Neut % (Auto) 62.4 Lymph % (Auto) 26.7 [place] % (Auto) 8.1 Eos % (Auto) 1.6 Baso % (Auto) 0.9 Absolute Neuts (auto) 4.6 Absolute Lymphs (auto) 1.97 Nucleated RBC % 0 Sodium 139 Potassium 4.0 Chloride 106 Carbon Dioxide 28.0 Anion Gap 5 BUN 9 Creatinine 1.12 Estim Creat Clear Calc 97.11 Est GFR (MDRD) Af Amer 95 Est GFR (MDRD) Non-Af 79 BUN/Creatinine Ratio 8.0 L Glucose 76 Calcium 9.4 Urine Color Yellow Urine Clarity Clear Urine pH 7.0 Ur Specific [place] 1.010 Urine Protein Negative Urine Glucose (UA) Normal Urine Ketones 5 H Urine Occult Blood Negative Urine Nitrite Negative Urine Bilirubin Negative Urine Urobilinogen Normal Ur Leukocyte Esterase Negative Urine RBC 0 SEEN Urine WBC 0 SEEN Ur Squamous Epith Cells 0 SEEN Urine Bacteria 0 SEEN Urine Mucus 0 SEEN - Medical Decision Making Patient was treated with IV Toradol. Laboratory studies, urinalysis, CT of the abdomen and pelvis all normal. Given the patient's antalgic gait, pain worsened with movement, symptoms for 1 month I believe this is most likely related to lumbosacral strain. He was provided with prescriptions for naproxen and Flexeril. He was advised on supportive care. He understands to return for new or worsening symptoms. Patient discharged. ED Disposition - Plan for ED Patient: Disposition: Home or Assisted Living Diagnosis: Lumbosacral strain Instructions: ED LUMBAR SPRAIN/STRAIN Prescriptions: cycloBENZAPRine HCl [Flexeril] 10 mg PO TID PRN #20 tab PRN Reason: Muscle Spasm Prescription Printed Naproxen [Naprosyn] 500 mg PO BID #20 tab Prescription Printed Referrals: Brandon Cullen MD [Primary Care Provider] -
[2019-12-30] MEDS: 0.9% Normal Saline 1,000 ML 999 ML IV (17:30)
[2019-12-30] MEDS: Ketorolac 30 MG/ML Syringe IV (17:31)
[2019-12-30 17:32] LABS: Color, Urine Yellow (Yellow); Glucose, Dipstick Normal (Normal); Ketone-Dipstick 5 mg/dl (Negative); Leukocyte Esterase-Dipstick Negative /ul (Negative); Nitrite-Dipstick Negative (Negative); Occult Blood-Urine Negative /ul (Negative); Protein-Dipstick Negative (Negative); Urine Bilirubin Dipstick Negative (Negative); Urine Clarity Clear (Clear); Urine Urobilinogen Normal (Normal)
[2019-12-30 17:47] LABS: Absolute Lymphocyte Count 1.97 X10^3/uL (0.83-4.51); Absolute Neutrophil Count 4.6 X10^3/uL (2.0-7.7); Basophil# 0.07 X10^3/uL; Basophil% 0.9 % (0-1); Eosinophil# 0.12 X10^3/uL; Eosinophils% 1.6 % (0-5); Hematocrit 42.7 % (40-54); Hemoglobin 13.8 g/dL (13.0-16.5); Lymphocyte # 1.97 X10^3/ul (4.0); Lymphocyte % 26.7 % (19-41); Mean Corp Hgb Conc 32.3 g/dL (32-36); Mean Corpuscular Hgb 29.6 pg (27.0-32.0); Mean Corpuscular Volume 91.4 fL (80-94); Mean Platelet Vol. 9.2 fl (6.2-12.0); Monocyte% 8.1 % (0-10); NRBC Flagged by Analyzer 0 % (0-5); Neutrophil # 4.59 X10^3/uL (2.7-7.7); Neutrophil % 62.4 % (47-70); Platelet Count 304 K/mm3 (150-450); RBC Distribution Width CV 12.1 % (11.6-14.6); RBC Distribution Width SD 40.5 fl (35.1-43.9); Red Blood Count 4.67 M/mm3 (4.6-6.2); White Blood Count 7.4 K/mm3 (4.4-11.0)
[2019-12-30 18:00] VITALS: BP 119/79; PULSE 85; RESP 18; TEMP 36.1; O2SAT 99
[2019-12-30 18:10] LABS: Anion Gap 5 (5-15); BUN 9 mg/dL (7-18); Calcium,Total 9.4 mg/dL (8.5-10.1); Chloride 106 mmol/L (98-107); Creatinine, Serum 1.12 mg/dL (0.70-1.30); EST Glomerular Filtration Rate 79 mL/min (>60); Est Glom Filt Rate - Afr Amer 95 mL/min (>60); Estimated Creatinine Clearance 97.11 ml/min; Glucose 76 mg/dL (74-106); Sodium Level 139 mmol/L (136-145)
[2019-12-30 18:27] VITALS: BP 98/64; PULSE 64; RESP 18; O2SAT 100
== END 2019-12-30 18:40 | disposition home or self-care (01) ==
PROVIDERS: Emergency Provider Emergency Medicine; PCP Family Medicine
DX: S39.012A Strain of muscle, fascia and tendon of lower back, initial encounter (principal); X58.XXXA Exposure to other specified factors, initial encounter; Y93.9 Activity, unspecified; Y92.9 Unspecified place or not applicable; F17.200 Nicotine dependence, unspecified, uncomplicated
CPT/HCPCS: 74176; 80048; 81001; 85025; 96361; 96374; 99283

== ENCOUNTER 2020-01-28 16:29 | Emergency (ER) | payer OTHER, MEDICAID, SELFPAY ==
[2020-01-28 16:31] VITALS: BP 120/93; PULSE 110; RESP 17; TEMP 36.8; O2SAT 99; BMI 25.2
--- NOTE | 2020-01-28 16:40 | CT_ITS ---
STUDY: CT ABDOMEN AND PELVIS WITH CONTRAST REASON FOR EXAM: Male, 34 years old. RT ABD PAIN/RECTAL BLEEDING SINCE LAST NIGHT RADIATION DOSAGE (If Supplied By Facility): CTDIvol = ( 12.69 ) mGy, DLP = ( 598.20 ) mGycm TECHNIQUE: Transaxial images were obtained from the dome of the diaphragm to the symphysis pubis with oral contrast. Oral and amp; IV Gastrografin and amp; 100mL Isovue-370 was administered. Sagittal and coronal images were reconstructed. Individualized dose optimization techniques were used for this CT. COMPARISON: 12/30/2019, November 04, 2015 FINDINGS: The visualized lung bases are unremarkable. The visualized portions of the heart are within normal limits. Normal liver. Normal gallbladder and extrahepatic biliary system. Normal spleen. Normal pancreas. Stable 14 x 9 mm lymph node versus left adrenal nodule on image 26 of series 2. This is unchanged compared to 2016 exam. Normal right kidney. Malrotated left kidney. Normal visualized stomach. Normal small intestine. Normal colon. The appendix is visualized and appears normal. Normal abdominal aorta. Normal inferior vena cava. Normal retroperitoneum. Normal urinary bladder. Normal abdominal wall. Normal osseous structures. CT/Abdomen/Pelvis WITH Contrast IMPRESSION: No gastrointestinal hemorrhages are visible. No evidence of appendicitis, acute intestinal pathology, or acute obstructive uropathy. Stable 14 x 9 mm lymph node versus left adrenal nodule. Electronically Signed: Kimo Leavitt MD at 19:00 EDT Tel , Service support ,
--- NOTE | 2020-01-28 16:41 | ED.DCSUM_ITS ---
History of Present Illness Chief Complaint: GI Bleed Informant: Patient Onset: Yesterday Narrative: Patient states that last evening he was straining to have a bowel movement. He states the stool was normal. When he wiped he noticed some bright red blood. He denies any rectal pain. He states when he woke this morning had sharp stabbing pain in the right mid axillary line mid abdomen. He states nothing seemed to make it better or worse. States this persisted throughout the day but somewhat better. He reports normal urination. He states that 2 months ago he was admitted for sepsis. He states he was having that pain in that side at that time but it went away and he has been having it. He returned to the emergency department a little over a month ago. Flank CT for some back pain that was negative. No rashes or fevers. No vomiting. He has not yet had another bowel movement. No history of inflammatory bowel conditions. Past Medical History - Allergies and Home Meds Allergies/Adverse Reactions: Allergies fluoxetine HCl [From Prozac] Adverse Reaction (Verified 01/28/20 16:29) Other ANXIETY ATTACK sertraline [From Zoloft] Adverse Reaction (Verified 01/28/20 16:29) Other PANIC ATTACK Primary Care Physician: Brandon Cullen MD [Primary Care Provider] - 3-5 Days Surgical History: - - Teeth removal. Smoking Status: Current every day smoker - Family History Maternal Family History: Reports: - - Patient notes that he does not know any of his internal or paternal family history. Paternal Family History: Reports: - - Patient notes that he does not know any of his internal or paternal family history. Review of Systems General: Denies: Chills, Fever, Sweats Eyes: Denies: Visual changes - bilaterally, Diplopia ENT: Denies: Rhinorrhea, Sore throat Cardiovascular: Denies: Chest pain, Palpitations Respiratory: Denies: Dyspnea, Cough, Dyspnea on exertion Gastrointestinal: Reports: Abdominal pain, Hematochezia. Denies: Nausea, Vomiting, Diarrhea, Constipation, Melena Genitourinary: Denies: Dysuria, Hematuria, Frequency Musculoskeletal: Denies: Back pain, Extremity Pain Skin: Denies: Rash, Wounds Neurological: Denies: Headache, Weakness, Numbness Physical Exam Vital Signs/Narrative: Vital Signs Temp Pulse Resp BP Pulse Ox 01/28/20 16:31 98.2 F 110 H 17 120/93 H 99 Inital Vital Signs reviewed: Yes General: Well nourished, Well developed, No Acute Distress Head: Normocephalic, Atraumatic Eyes: Perrl, EOMI ENT: Moist mucous membranes, No rhinorrhea Neck: Supple, Nontender Cardiovascular: Regular rate, Regular rhythm, No murmurs Respiratory: No distress, CTA bilaterally, Chest nontender Abdomen: Soft, Nontender, Nondistended, Normal bowel sounds Back: Nontender, Normal Inspection Extremities: Nontender, No edema Skin: Normal color, No rash Neurological: Alert, Oriented x3, Cranial nerves II-XII grossly intact, Normal Strength, Normal Sensation Psychological: Normal affect, Normal Mood Diagnostic/Tx/Re-eval Laboratory Last Values WBC 7.7 K/mm3 (4.4-11.0) 01/28/20 16:50 RBC 4.85 M/mm3 (4.6-6.2) 01/28/20 16:50 Hgb 14.6 g/dL (13.0-16.5) 01/28/20 16:50 Hct 43.8 % (40-54) 01/28/20 16:50 MCV 90.3 fL (80-94) 01/28/20 16:50 MCH 30.1 pg (27.0-32.0) 01/28/20 16:50 MCHC 33.3 g/dL (32-36) 01/28/20 16:50 RDW Std Deviation 42.3 fl (35.1-43.9) 01/28/20 16:50 RDW Coeff of Ara 12.8 % (11.6-14.6) 01/28/20 16:50 Plt Count 268 K/mm3 (150-450) 01/28/20 16:50 MPV 9.3 fl (6.2-12.0) 01/28/20 16:50 Immature Gran % (Auto) 0.500 % (0.0-0.9) 01/28/20 16:50 Neut % (Auto) 65.8 % (47-70) 01/28/20 16:50 Lymph % (Auto) 22.8 % (19-41) 01/28/20 16:50 [place] % (Auto) 8.7 % (0-10) 01/28/20 16:50 Eos % (Auto) 1.6 % (0-5) 01/28/20 16:50 Baso % (Auto) 0.6 % (0-1) 01/28/20 16:50 Absolute Neuts (auto) 5.1 X10^3/uL (2.0-7.7) 01/28/20 16:50 Absolute Lymphs (auto) 1.76 X10^3/uL (0.83-4.51) 01/28/20 16:50 Nucleated RBC % 0 % (0-5) 01/28/20 16:50 Sodium 140 mmol/L (136-145) 01/28/20 16:50 Potassium 3.9 mmol/L (3.5-5.1) 01/28/20 16:50 Chloride 107 mmol/L (98-107) 01/28/20 16:50 Carbon Dioxide 26.0 mmol/L (21.0-32.0) 01/28/20 16:50 Anion Gap 7 (5-15) 01/28/20 16:50 BUN 11 mg/dL (7-18) 01/28/20 16:50 Creatinine 1.13 mg/dL (0.70-1.30) 01/28/20 16:50 Estim Creat Clear Calc 96.25 ml/min 01/28/20 16:50 Est GFR (MDRD) Af Amer 94 mL/min (>60) 01/28/20 16:50 Est GFR (MDRD) Non-Af 78 mL/min (>60) 01/28/20 16:50 BUN/Creatinine Ratio 9.7 RATIO (10-20) L 01/28/20 16:50 Glucose 94 mg/dL (74-106) 01/28/20 16:50 Calcium 9.4 mg/dL (8.5-10.1) 01/28/20 16:50 Total Bilirubin 0.80 mg/dL (0.20-1.00) 01/28/20 16:50 AST 24 U/L (15-37) 01/28/20 16:50 ALT 37 U/L (16-61) 01/28/20 16:50 Alkaline Phosphatase 64 U/L (45-117) 01/28/20 16:50 Total Protein 7.9 g/dL (6.4-8.2) 01/28/20 16:50 Albumin 3.9 g/dL (3.2-5.0) 01/28/20 16:50 Globulin 4.0 g/dL (2.2-4.2) 01/28/20 16:50 Albumin/Globulin Ratio 1.0 RATIO (0.9-2.4) 01/28/20 16:50 Lipase 62 U/L (73-393) L 01/28/20 16:50 Urine Color Yellow (Yellow) 01/28/20 17:10 Urine Clarity Clear (Clear) 01/28/20 17:10 Urine pH 8.0 (5.0 - 8.0) 01/28/20 17:10 Ur Specific [place] 1.015 (1.002-1.030) 01/28/20 17:10 Urine Protein Negative mg/dl (Negative) 01/28/20 17:10 Urine Glucose (UA) Normal mg/dl (Normal) 01/28/20 17:10 Urine Ketones 5 mg/dl (Negative) H 01/28/20 17:10 Urine Occult Blood Negative /ul (Negative) 01/28/20 17:10 Urine Nitrite Negative (Negative) 01/28/20 17:10 Urine Bilirubin Negative mg/dL (Negative) 01/28/20 17:10 Urine Urobilinogen 1 mg/dl (Normal) H 01/28/20 17:10 Ur Leukocyte Esterase 25 /ul (Negative) H 01/28/20 17:10 Urine RBC 0 SEEN /hpf (0-5) 01/28/20 17:10 Urine WBC 0-5 SEEN /hpf (0-5) 01/28/20 17:10 Ur Squamous Epith Cells 0 SEEN /hpf (0-5) 01/28/20 17:10 Urine Bacteria RARE /hpf (None Seen) 01/28/20 17:10 Urine Mucus RARE /hpf (<or=2+) 01/28/20 17:10 - Medical Decision Making Basic labs are essentially negative. CT the abdomen pelvis shows nothing acute. I think the lower GI bleeding is probably due to sitting and straining. We talked about obtaining a stool softener for a few days see if that has an effect on his straining. Should follow-up with his doctor in 3 to 5 days return if worsening or concerns ED Disposition - Plan for ED Patient: Disposition: Home or Assisted Living Diagnosis: Acute abdominal pain, Hematochezia Instructions: ED Hematochezia Stable, ED Unknown Causes of Abdominal Pain Male Referrals: Brandon Cullen MD [Primary Care Provider] - 3-5 Days
[2020-01-28] MEDS: 0.9% Normal Saline 1,000 ML 1000 ML IV (16:50)
[2020-01-28] MEDS: Ketorolac 30 MG/ML Syringe IV (16:51)
[2020-01-28 17:02] LABS: Absolute Lymphocyte Count 1.76 X10^3/uL (0.83-4.51); Absolute Neutrophil Count 5.1 X10^3/uL (2.0-7.7); Basophil# 0.05 X10^3/uL; Basophil% 0.6 % (0-1); Eosinophil# 0.12 X10^3/uL; Eosinophils% 1.6 % (0-5); Hematocrit 43.8 % (40-54); Hemoglobin 14.6 g/dL (13.0-16.5); Lymphocyte # 1.76 X10^3/ul (4.0); Lymphocyte % 22.8 % (19-41); Mean Corp Hgb Conc 33.3 g/dL (32-36); Mean Corpuscular Hgb 30.1 pg (27.0-32.0); Mean Corpuscular Volume 90.3 fL (80-94); Mean Platelet Vol. 9.3 fl (6.2-12.0); Monocyte# 0.67 X10^3/uL; Monocyte% 8.7 % (0-10); NRBC Flagged by Analyzer 0 % (0-5); Neutrophil # 5.08 X10^3/uL (2.7-7.7); Neutrophil % 65.8 % (47-70); Platelet Count 268 K/mm3 (150-450); RBC Distribution Width CV 12.8 % (11.6-14.6); RBC Distribution Width SD 42.3 fl (35.1-43.9); Red Blood Count 4.85 M/mm3 (4.6-6.2); White Blood Count 7.7 K/mm3 (4.4-11.0)
[2020-01-28 17:13] LABS: Squamous Epithelial Cells - UA 0 SEEN /hpf (0-5)
[2020-01-28 17:17] LABS: AST(SGOT) 24 U/L (15-37); Alanine Aminotransfer ALT/SGPT 37 U/L (16-61); Albumin, Serum 3.9 g/dL (3.2-5.0); Alkaline Phosphatase 64 U/L (45-117); Anion Gap 7 (5-15); BUN 11 mg/dL (7-18); BUN/Creat Ratio 9.7 RATIO (10-20); Calcium,Total 9.4 mg/dL (8.5-10.1); Chloride 107 mmol/L (98-107); Creatinine, Serum 1.13 mg/dL (0.70-1.30); EST Glomerular Filtration Rate 78 mL/min (>60); Est Glom Filt Rate - Afr Amer 94 mL/min (>60); Estimated Creatinine Clearance 96.25 ml/min; Glucose 94 mg/dL (74-106); Lipase 62 U/L (73-393); Potassium 3.9 mmol/L (3.5-5.1); Protein, Total 7.9 g/dL (6.4-8.2); Sodium Level 140 mmol/L (136-145)
[2020-01-28 17:20] LABS: Color, Urine Yellow (Yellow); Glucose, Dipstick Normal (Normal); Ketone-Dipstick 5 mg/dl (Negative); Leukocyte Esterase-Dipstick 25 /ul (Negative); Nitrite-Dipstick Negative (Negative); Occult Blood-Urine Negative /ul (Negative); Protein-Dipstick Negative (Negative); Specific Gravity, Urine 1.015 (1.002-1.030); Urine Bilirubin Dipstick Negative (Negative); Urine Clarity Clear (Clear); Urine Urobilinogen 1 mg/dl (Normal)
[2020-01-28 17:32] LABS: White Blood Cells 0-5 SEEN /hpf (0-5)
[2020-01-28 17:33] LABS: Bacteria RARE /hpf (None Seen); Mucous, Urine RARE /hpf (<or=2+); Red Blood Cells-Urine 0 SEEN /hpf (0-5)
[2020-01-28 18:35] VITALS: BP 123/70; PULSE 75; RESP 16; O2SAT 99
[2020-01-28 19:13] VITALS: BP 115/71; PULSE 72; RESP 18; O2SAT 99
== END 2020-01-28 19:14 | disposition home or self-care (01) ==
PROVIDERS: Emergency Provider Emergency Medicine; PCP Family Medicine
DX: K92.1 Melena (principal); F17.200 Nicotine dependence, unspecified, uncomplicated
CPT/HCPCS: 74177; 80053; 81001; 83690; 85025; 96361; 96374; 99283; J7030; Q9967; A4216

== ENCOUNTER 2020-02-03 15:59 | Emergency (ER) | payer OTHER, MEDICAID, SELFPAY ==
[2020-02-03 16:00] VITALS: BP 123/86; PULSE 99; RESP 22; TEMP 36.6; O2SAT 99; BMI 24.9
--- NOTE | 2020-02-03 16:50 | ED.VISSUMM ---
- ER Visit Summary Date of Service: 02/03/20 Chief Complaint: Chest pain and shortness of breath History of Present Illness: The patient is a 34 M who presents with chest pain and shortness of breath that began today. Patient states it is been constant for the past few hours. Patient states he feels lightheaded like he is going to pass out. Patient states nothing makes it better or worse. Patient states his pain is over the left side of his chest. Patient describes it as dull. Patient admits to a cough but states it is from smoking. Patient admits to some reflux. Patient denies any nausea or vomiting. Patient denies any fevers or chills. Patient denies any diaphoresis or palpitations. Patient is a smoker but denies any other cardiac or PE risk factors. Physical Examination: Vital signs are stable. Patient is afebrile. Patient is in no acute distress. Oral mucosa is pink and moist. Neck is supple. Trachea is midline. There is no JVD noted. Heart was regular rate and rhythm. Lungs are clear and equal bilaterally. Abdomen is soft. Bowel sounds are normal. There is no tenderness. There is no rebound or guarding noted. Skin is warm dry. Cranial nerves II through XII are intact. There are no focal motor or sensory deficits noted. Extremities are intact. There is no calf tenderness or edema. Test Results: EKG showed normal sinus rhythm with a rate of 95. There are no acute ST or T wave changes. CBC and comprehensive metabolic profile were within normal limits. Troponin was normal. Portable chest x-ray was obtained. There is no acute cardiopulmonary process. This was interpreted by the radiologist and myself. Emergency Department Course and Treatment: Patient was given aspirin here. Patient was feeling better on reevaluation. Patient has a HEART score of 1 and a MANDEEP risk score of 0. Patient was advised that this is low risk for acute cardiac event. Patient was instructed to follow-up with his primary care physician in 5 to 7 days. Patient was instructed return if worse in any way. Patient understood and was agreeable with the plan. All questions were answered. Disposition: Discharge home Impression: 1. Chest pain This note was generated with [employer] software. It may contain incorrect words, spelling, and punctuation that were not noted in review of the chart prior to signing ED Disposition - Plan for ED Patient: Disposition: Home or Assisted Living Diagnosis: Chest pain Instructions: ED Chest Pain Atypical Unkn Cause Referrals: Brandon Cullen MD [Primary Care Provider] - 5-7 Days
[2020-02-03] MEDS: Aspirin 81 MG TAB.CHEW 324 MG PO (17:05)
[2020-02-03 17:25] VITALS: O2SAT 97
--- NOTE | 2020-02-03 17:30 | RAD_ITS ---
STUDY: X-RAY CHEST REASON FOR EXAM: Male, 34 years old. sob with chest pain TECHNIQUE: Single AP portable view of the chest. COMPARISON: Prior study of 12/11/2019 FINDINGS: desk monitor leads are present. The lungs are clear and expanded. There is no demonstrated pleural abnormality. Normal size heart. Normal mediastinum and mey. Normal visualized pulmonary arteries. Normal visualized aortic arch and descending thoracic aorta. Normal visualized thoracic spine. Normal visualized ribs, clavicles, and shoulders. There is no demonstrated abnormality of the visualized soft tissue structures of the upper abdomen. RAD/Chest 1 View (Portable) IMPRESSION: Normal x-ray examination of the chest. Electronically Signed: Tye Singh MD at 18:05 EDT , Service support ,
[2020-02-03 17:34] VITALS: BP 123/86; PULSE 99; RESP 22; TEMP 36.6; O2SAT 99
--- NOTE | 2020-02-03 17:35 | EKG12_ITS ---
Test Reason : CP Blood Pressure : / mmHG Vent. Rate : 095 BPM Atrial Rate : 095 BPM P-R Int : 114 ms QRS Dur : 094 ms QT Int : 340 ms P-R-T Axes : 077 062 067 degrees QTc Int : 427 ms Normal sinus rhythm Normal ECG Confirmed by ZAINA CARUSO, DELORES ([id number]), communications editor MOODY DONOVAN ([id number]) on 02/06/2020 10:37:17 AM Referred By: ESME/KALA Confirmed By:DELORES MAHAJAN MD
[2020-02-03 17:53] LABS: ALB/GLOB Ratio 0.9 RATIO (0.9-2.4); AST(SGOT) 23 U/L (15-37); Alanine Aminotransfer ALT/SGPT 33 U/L (16-61); Albumin, Serum 3.7 g/dL (3.2-5.0); Alkaline Phosphatase 61 U/L (45-117); Anion Gap 5 (5-15); BUN 9 mg/dL (7-18); BUN/Creat Ratio 8.6 RATIO (10-20); Calcium,Total 8.8 mg/dL (8.5-10.1); Chloride 106 mmol/L (98-107); Creatinine, Serum 1.05 mg/dL (0.70-1.30); EST Glomerular Filtration Rate 85 mL/min (>60); Est Glom Filt Rate - Afr Amer 103 mL/min (>60); Estimated Creatinine Clearance 103.59 ml/min; Globulin 4.1 g/dL (2.2-4.2); Glucose 59 mg/dL (74-106); Potassium 3.9 mmol/L (3.5-5.1); Protein, Total 7.8 g/dL (6.4-8.2); Sodium Level 140 mmol/L (136-145)
[2020-02-03 18:14] VITALS: BP 119/86; PULSE 77; RESP 18; TEMP 36.6; O2SAT 100
[2020-02-03 18:23] LABS: Absolute Lymphocyte Count 1.74 X10^3/uL (0.83-4.51); Absolute Neutrophil Count 3.4 X10^3/uL (2.0-7.7); Basophil# 0.05 X10^3/uL; Basophil% 0.8 % (0-1); Eosinophils% 1.7 % (0-5); Hematocrit 43.3 % (40-54); Hemoglobin 14.5 g/dL (13.0-16.5); Lymphocyte # 1.74 X10^3/ul (4.0); Lymphocyte % 29.1 % (19-41); Mean Corp Hgb Conc 33.5 g/dL (32-36); Mean Corpuscular Hgb 30.9 pg (27.0-32.0); Mean Corpuscular Volume 92.1 fL (80-94); Mean Platelet Vol. 9.9 fl (6.2-12.0); Monocyte# 0.64 X10^3/uL; Monocyte% 10.7 % (0-10); NRBC Flagged by Analyzer 0 % (0-5); Platelet Count 254 K/mm3 (150-450); RBC Distribution Width SD 44.1 fl (35.1-43.9)
[2020-02-03 19:06] VITALS: BP 119/86; PULSE 77; RESP 18; TEMP 36.6; O2SAT 100
[2020-02-03 19:28] VITALS: BP 121/81; PULSE 64; RESP 15; TEMP 37.1; O2SAT 99
== END 2020-02-03 19:36 | disposition home or self-care (01) ==
PROVIDERS: Emergency Provider Emergency Medicine; PCP Family Medicine
DX: R07.9 Chest pain, unspecified (principal); R06.02 Shortness of breath; F17.200 Nicotine dependence, unspecified, uncomplicated
CPT/HCPCS: 71045; 80053; 84484; 85025; 93005; 99285; A4216

== ENCOUNTER 2020-03-13 03:06 | Emergency (ER) | payer OTHER, MEDICAID, SELFPAY ==
[2020-03-13 03:08] VITALS: BP 136/87; PULSE 76; RESP 18; TEMP 37.1; O2SAT 100; BMI 25.2
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
[2020-03-13] MEDS: BACITRACIN 15 GM Tube 1 APPLIC TOPICAL (03:30)
[2020-03-13 03:31] VITALS: RESP 16
== END 2020-03-13 03:32 | disposition home or self-care (01) ==
LOC: ED 03:27
PROVIDERS: Emergency Provider Emergency Medicine; PCP Family Medicine
DX: T65.891A Toxic effect of other specified substances, accidental (unintentional), initial encounter (principal); T20.59XA Corrosion of first degree of multiple sites of head, face, and neck, initial encounter; Y93.89 Activity, other specified; Y92.9 Unspecified place or not applicable; L30.9 Dermatitis, unspecified; F17.200 Nicotine dependence, unspecified, uncomplicated
CPT/HCPCS: 99282

== ENCOUNTER 2020-03-18 17:21 | Emergency (ER) | payer OTHER, MEDICAID, SELFPAY ==
[2020-03-18 17:22] VITALS: BP 131/81; PULSE 102; RESP 21; TEMP 36.7; O2SAT 99; BMI 25.9
[2020-03-18 17:30] VITALS: BP 131/80; BP 131/81; PULSE 92; PULSE 95; RESP 15; RESP 19; TEMP 36.7; O2SAT 97; O2SAT 98
[2020-03-18 17:34] VITALS: O2SAT 99
--- NOTE | 2020-03-18 17:43 | EKG12_ITS ---
Test Reason : Blood Pressure : / mmHG Vent. Rate : 081 BPM Atrial Rate : 081 BPM P-R Int : 130 ms QRS Dur : 102 ms QT Int : 374 ms P-R-T Axes : 064 051 045 degrees QTc Int : 434 ms Sinus rhythm with marked sinus arrhythmia Otherwise normal ECG Confirmed by LYNDSAY CARUSO, REMA ([id number]), supervising film or videotape editor NIK BARCENAS ([id number]) on 03/23/2020 11:07:20 AM Referred By: ROIBNA Confirmed By:REMA UMANA MD
--- NOTE | 2020-03-18 17:45 | ED.VISSUMM ---
- ER Visit Summary Date of Service: 03/18/20 Chief Complaint: Shortness of breath History of Present Illness: The patient is a 34 M who presents with shortness of breath that began today while he was at work. Patient states he was not overexerting himself at the time. Patient states it is been constant since it began today. Patient states nothing makes it better or worse. Patient admits to a slight cough but denies any production. Patient denies any chest pain. Patient denies any fevers or chills. Patient denies any sore throat or rhinorrhea. Patient denies any nausea or vomiting. Patient admits to some generalized weakness. Patient denies any PE risk factors. Physical Examination: Vital signs are stable. Patient is afebrile. Patient is in no acute distress. Oral mucosa is pink and moist. Neck is supple. Trachea is midline. There is no JVD. Heart was regular rate and rhythm. Lungs are clear and equal bilaterally. There is adequate respiratory effort. Abdomen is soft. Bowel sounds are normal. There is no tenderness. There is no guarding. Cranial nerves II through XII are intact. There are no focal motor or sensory deficits noted. Extremities are intact. There is no calf tenderness or edema. Test Results: CBC and basic metabolic profile were obtained. Creatinine was slightly elevated at 1.34. Troponin was normal. D-dimer was normal. Chest x-ray was normal. This was interpreted by the radiologist and reviewed by myself. Emergency Department Course and Treatment: He was given IV fluids and Tylenol here. Patient was feeling better on reevaluation. Patient was instructed to follow-up with his primary care physician in 5 to 7 days. Patient was instructed to drink plenty of fluids. Patient was instructed to return if worse in any way. Patient understood and was agreeable with the plan. All questions were answered. Disposition: Discharge home Impression: Dyspnea This note was generated with [employer] dictation software. It may contain incorrect words, spelling, and punctuation that were not noted in review of the chart prior to signing ED Disposition - Plan for ED Patient: Disposition: Home or Assisted Living Diagnosis: Dyspnea Instructions: ED Dyspnea Referrals: Brandon Cullen MD [Primary Care Provider] - 5-7 Days
[2020-03-18 18:01] LABS: Absolute Lymphocyte Count 2.48 X10^3/uL (0.83-4.51); Absolute Neutrophil Count 3.3 X10^3/uL (2.0-7.7); Basophil# 0.06 X10^3/uL; Basophil% 0.9 % (0-1); Eosinophil# 0.09 X10^3/uL; Eosinophils% 1.4 % (0-5); Hematocrit 45.1 % (40-54); Hemoglobin 15.6 g/dL (13.0-16.5); Lymphocyte # 2.48 X10^3/ul (4.0); Lymphocyte % 37.9 % (19-41); Mean Corp Hgb Conc 34.6 g/dL (32-36); Mean Corpuscular Hgb 30.6 pg (27.0-32.0); Mean Corpuscular Volume 88.6 fL (80-94); Mean Platelet Vol. 10.3 fl (6.2-12.0); Monocyte# 0.61 X10^3/uL; Monocyte% 9.3 % (0-10); NRBC Flagged by Analyzer 0 % (0-5); Neutrophil # 3.27 X10^3/uL (2.7-7.7); Platelet Count 278 K/mm3 (150-450); RBC Distribution Width CV 12.9 % (11.6-14.6); Red Blood Count 5.09 M/mm3 (4.6-6.2); White Blood Count 6.5 K/mm3 (4.4-11.0)
[2020-03-18 18:11] LABS: D-Dimer Quantitative (DVT/PE) 0.38 FEU/ug/m (0.27-0.49)
[2020-03-18 18:14] VITALS: O2SAT 100
[2020-03-18] MEDS: Acetaminophen 500 MG Tablet 1000 MG PO (18:19)
[2020-03-18 18:20] VITALS: BP 112/76; PULSE 76; RESP 19; TEMP 36.6; O2SAT 96
[2020-03-18] MEDS: 0.9% Normal Saline 1,000 ML 1000 ML IV (18:20)
--- NOTE | 2020-03-18 18:22 | RAD_ITS ---
STUDY: X-RAY CHEST REASON FOR EXAM: Male, 34 years old. Shortness of breath and weakness today TECHNIQUE: 2 AP portable view of the chest. COMPARISON: February 03, 2020 FINDINGS: The lungs are clear and expanded. There is no demonstrated pleural abnormality. Normal size heart. Normal mediastinum and mey. Normal visualized pulmonary arteries. Normal visualized aortic arch and descending thoracic aorta. Normal visualized thoracic spine. Normal visualized ribs, clavicles, and shoulders. There is no demonstrated abnormality of the visualized soft tissue structures of the upper abdomen. RAD/Chest 1 View (Portable) IMPRESSION: Normal x-ray examination of the chest. Electronically Signed: Max Haji MD at 19:02 EDT , Service support ,
--- NOTE | 2020-03-18 18:27 | ED.RN ---
pt had small emesis. dr garcia new orders recienved
[2020-03-18 18:44] LABS: AST(SGOT) 19 U/L (15-37); Alanine Aminotransfer ALT/SGPT 30 U/L (16-61); Albumin, Serum 4.4 g/dL (3.2-5.0); Alkaline Phosphatase 74 U/L (45-117); Anion Gap 11 (5-15); BUN 11 mg/dL (7-18); BUN/Creat Ratio 8.2 RATIO (10-20); Calcium,Total 9.8 mg/dL (8.5-10.1); Chloride 106 mmol/L (98-107); Creatinine, Serum 1.34 mg/dL (0.70-1.30); EST Glomerular Filtration Rate 64 mL/min (>60); Est Glom Filt Rate - Afr Amer 77 mL/min (>60); Estimated Creatinine Clearance 81.17 ml/min; Globulin 4.2 g/dL (2.2-4.2); Glucose 128 mg/dL (74-106); Potassium 3.5 mmol/L (3.5-5.1); Protein, Total 8.6 g/dL (6.4-8.2); Sodium Level 139 mmol/L (136-145)
[2020-03-18 20:19] VITALS: BP 104/68; PULSE 62; RESP 15; O2SAT 97
== END 2020-03-18 20:20 | disposition home or self-care (01) ==
PROVIDERS: Emergency Provider Emergency Medicine; PCP Family Medicine
DX: R06.00 Dyspnea, unspecified (principal); Z72.0 Tobacco use
CPT/HCPCS: 71045; 80053; 84484; 85025; 85379; 93005; 96360; 96361; 99285; J7030

== ENCOUNTER 2020-03-19 11:01 | Emergency (ER) | payer OTHER, MEDICAID, SELFPAY ==
[2020-03-18 17:22] VITALS: BMI 25.9
[2020-03-19 11:02] VITALS: BP 145/87; PULSE 82; RESP 18; TEMP 36.6; O2SAT 99; BMI 25.1
--- NOTE | 2020-03-19 11:35 | ED.VISSUMM ---
- ER Visit Summary Date of Service: 03/19/20 Chief Complaint: Shortness of breath History of Present Illness: The patient is a [address] Estrada. He was seen in the emergency department yesterday for shortness of breath. He reports that his work requires a note for him to return and also wants him to be tested for COVID-19. Patient denies any shortness of breath today. He states that yesterday it lasted approximately an hour. He was wheezing with this. He denies any chest pain. He does smoke 1 pack/day. He does not have an inhaler that he uses. Patient reports he has a chronic cough that is unchanged. It is nonproductive. He denies any fever or chills. He has no known sick contacts. Reports that other than working he has been isolating himself at home. He is wearing a mask. Physical Examination: Vitals: Stable. Afebrile. General: Well-nourished and well-developed. Head: Normocephalic atraumatic. Neck: Supple, no lymphadenopathy. No JVD. Nontender. Cardiovascular: Regular rate and rhythm. No murmurs. Respiratory: No respiratory distress. Clear to auscultation bilaterally. Abdominal: Soft, nontender, nondistended, normal bowel sounds. No guarding, rebound, or peritoneal signs. Back: Nontender. Extremities: Nontender, no edema. Skin: Normal color, no rash. Neurologic: Alert and oriented ?3. Cranial nerves II through XII are intact. Normal strength and sensation. Psych: Normal affect. Test Results: Labs and chest x-ray from yesterday were reviewed. They were not repeated. Emergency Department Course and Treatment: Patient is resting comfortably. He is not in any distress. Had a prolonged discussion with patient that I do not think that he is at high risk for COVID-19. However, with his shortness of breath and the risk of being asymptomatic carrier he was tested. He understands that this will not come back today. Treatment Plan: Patient be discharged with albuterol MDI. Instructed to follow-up with his primary care physician for results of his COVID-19 test. At this time I do not think that he needs to quarantine. Return to the emergency department for any worsening symptoms. Disposition: To home in improved and stable condition. Impression: 1. COPD. This note was generated with [employer] dictation software. It may contain incorrect words, spelling, and punctuation that were not noted in review of the chart prior to signing ED Disposition - Plan for ED Patient: Instructions: ED Dyspnea Prescriptions: Albuterol Inhaler [Ventolin Hfa] 2 puff INHALATION Q4H PRN PRN #1 inhaler PRN Reason: Wheezing Prescription Printed Referrals: Brandon Cullen MD [Primary Care Provider] - 1 Week if not improving
== END 2020-03-19 12:17 | disposition home or self-care (01) ==
LOC: ED 12:00
PROVIDERS: Emergency Provider Emergency Medicine; PCP Family Medicine
DX: J44.9 Chronic obstructive pulmonary disease, unspecified (principal); F17.200 Nicotine dependence, unspecified, uncomplicated
CPT/HCPCS: 87635; 99282; G2023; U0003

== ENCOUNTER 2020-03-20 23:08 | Emergency (ER) | payer OTHER, MEDICAID, SELFPAY ==
[2020-03-19 11:02] VITALS: BMI 25.1
[2020-03-20 23:09] VITALS: BP 138/83; PULSE 105; RESP 18; TEMP 36.8; O2SAT 100; BMI 27.8
--- NOTE | 2020-03-20 23:32 | RAD_ITS ---
HISTORY: Chest pain. ADDITIONAL HISTORY: None provided. EXAMINATION/TECHNIQUE: XR Chest 1 View AP/PA Number of images including paperwork: 1 COMPARISON: 03/18/2020 FINDINGS: LUNGS AND PLEURA: No consolidation, mass or pleural effusion. CARDIAC SILHOUETTE: Unremarkable. MEDIASTINUM AND AURORA: Unremarkable. UPPER ABDOMEN: Unremarkable. SKELETON AND SOFT TISSUES: No acute findings. OTHER DEVICES AND HARDWARE: None. RAD/Chest 1 View (Portable) IMPRESSION: No acute cardiopulmonary abnormality. at 0034 Reported and signed by: Marce Robledo MD Electronically Signed: Marce Robledo MD at 0:34 EDT Tel , Service support ,
--- NOTE | 2020-03-20 23:32 | EKG12_ITS ---
Test Reason : CP Blood Pressure : / mmHG Vent. Rate : 087 BPM Atrial Rate : 087 BPM P-R Int : 124 ms QRS Dur : 098 ms QT Int : 352 ms P-R-T Axes : 061 046 054 degrees QTc Int : 423 ms Normal sinus rhythm Normal ECG Confirmed by LYNDSAY CARUSO, REMA ([id number]), general expeditor NIK BARCENAS ([id number]) on 03/24/2020 9:23:28 AM Referred By: DR RAHMAN Confirmed By:REMA UMANA MD
--- NOTE | 2020-03-20 23:34 | ED.VIS.GEN ---
History of Present Illness Chief Complaint: Chest Pain Onset: Yesterday Narrative: 34-year-old male presents with 2-day history of shortness of breath. Today he started having some chest pain this been persistent all day. Describes it as mild. He denies any fever. He does have a cough. He states that he was seen and evaluated and tested for COVID?19 yesterday. The results are pending. He has no known exposures. Patient has no cardiac history. He is a smoker. No DVT/PE history or risk factors. Denies drugs and alcohol. Prior similar symptoms: Yes Recent Illness/Hospitalization: Yes Past Medical History - Allergies and Home Meds Allergies/Adverse Reactions: Allergies fluoxetine HCl [From Prozac] Adverse Reaction (Verified 03/20/20 23:13) Other ANXIETY ATTACK sertraline [From Zoloft] Adverse Reaction (Verified 03/20/20 23:13) Other PANIC ATTACK Primary Care Physician: Brandon Cullen MD [Primary Care Provider] - Surgical History: - - Teeth removal. Smoking Status: Current every day smoker - Family History Maternal Family History: Reports: - - Patient notes that he does not know any of his internal or paternal family history. Paternal Family History: Reports: - - Patient notes that he does not know any of his internal or paternal family history. Review of Systems General: Denies: Chills, Fever Eyes: Denies: Visual changes - bilaterally, Diplopia ENT: Denies: Rhinorrhea, Sore throat Cardiovascular: Reports: Chest pain Respiratory: Reports: Dyspnea, Cough Gastrointestinal: Reports: Abdominal pain Genitourinary: Denies: Dysuria, Hematuria Musculoskeletal: Denies: Myalgias Skin: Denies: Rash, Abscess Neurological: Denies: Headache Psych: Denies: Depression, Anxiety, Suicidal thoughts, Suicidal ideations Endocrine: Denies: Polyuria, Polydipsia Physical Exam Vital Signs/Narrative: Vital Signs Temp Pulse Resp BP Pulse Ox 03/20/20 23:09 98.3 F 105 H 18 138/83 H 100 Inital Vital Signs reviewed: Yes General: Well nourished, Well developed, No Acute Distress Head: Normocephalic, Atraumatic Eyes: Perrl, EOMI. Negative for: Pale conjunctiva, Scleral icterus ENT: Moist mucous membranes Neck: Supple, Nontender Cardiovascular: Regular rate, Regular rhythm Respiratory: No distress, CTA bilaterally, Chest nontender Extremities: Nontender, No edema Skin: Normal color, No rash Neurological: Alert, Oriented x3 Psychological: Normal affect Diagnostic/Tx/Re-eval Laboratory Data 03/20/20 03/20/20 23:20 23:20 WBC 6.7 RBC 4.81 Hgb 14.7 Hct 43.4 MCV 90.2 MCH 30.6 MCHC 33.9 RDW Std Deviation 43.1 RDW Coeff of Ara 13.1 Plt Count 266 MPV 10.1 Immature Gran % (Auto) 0.400 Neut % (Auto) 55.5 Lymph % (Auto) 33.4 Faulkner % (Auto) 8.1 Eos % (Auto) 1.6 Baso % (Auto) 1.0 Absolute Neuts (auto) 3.7 Absolute Lymphs (auto) 2.23 Nucleated RBC % 0 D-Dimer Quant (PE/DVT) 0.33 - Rhythm Strip Rhythm Strip: Sinus Rhythm Rate: 87 Ectopy: None - EKG Initial EKG Interpretation: Sinus Rhythm, No Acute Injury Pattern - Medical Decision Making Clinical Impression(s) from Imaging Studies Chest X-Ray 03/20/20 23:32 IMPRESSION: No acute cardiopulmonary abnormality. at 0034 Reported and signed by: Marce Robledo MD Electronically Signed: Marce Robledo MD at 0:34 EDT Tel , Service support , Laboratory Data 03/20/20 03/20/20 03/20/20 23:20 23:20 23:20 WBC 6.7 RBC 4.81 Hgb 14.7 Hct 43.4 MCV 90.2 MCH 30.6 MCHC 33.9 RDW Std Deviation 43.1 RDW Coeff of Ara 13.1 Plt Count 266 MPV 10.1 Immature Gran % (Auto) 0.400 Neut % (Auto) 55.5 Lymph % (Auto) 33.4 Faulkner % (Auto) 8.1 Eos % (Auto) 1.6 Baso % (Auto) 1.0 Absolute Neuts (auto) 3.7 Absolute Lymphs (auto) 2.23 Nucleated RBC % 0 D-Dimer Quant (PE/DVT) 0.33 Sodium 139 Potassium 3.5 Chloride 108 H Carbon Dioxide 27.0 Anion Gap 4 L BUN 8 Creatinine 1.20 Estim Creat Clear Calc 90.64 Est GFR (MDRD) Af Amer 88 Est GFR (MDRD) Non-Af 73 BUN/Creatinine Ratio 6.7 L Glucose 97 Calcium 9.4 Total Bilirubin 0.60 AST 22 ALT 31 Alkaline Phosphatase 72 Troponin I Total Protein 8.1 Albumin 4.4 Globulin 3.7 Albumin/Globulin Ratio 1.2 03/20/20 23:20 WBC RBC Hgb Hct MCV MCH MCHC RDW Std Deviation RDW Coeff of Ara Plt Count MPV Immature Gran % (Auto) Neut % (Auto) Lymph % (Auto) Faulkner % (Auto) Eos % (Auto) Baso % (Auto) Absolute Neuts (auto) Absolute Lymphs (auto) Nucleated RBC % D-Dimer Quant (PE/DVT) Sodium Potassium Chloride Carbon Dioxide Anion Gap BUN Creatinine Estim Creat Clear Calc Est GFR (MDRD) Af Amer Est GFR (MDRD) Non-Af BUN/Creatinine Ratio Glucose Calcium Total Bilirubin AST ALT Alkaline Phosphatase Troponin I < 0.015 Total Protein Albumin Globulin Albumin/Globulin Ratio Patient again presents with shortness of breath although has been having chest pain all day. He describes it as mild, but he is concerned for COVID. His COVID swab is not returned yet. He had another cardiac work-up today which is negative. Given that his troponin is negative after having pain all day I do not believe he needs a repeat EKG or troponin. D-dimer again is negative. Lab work is inconsistent with COVID?19 however he is given instructions to self quarantine. His vital signs are stable and he is afebrile. He is nontoxic-appearing. I feel he is safe to be discharged home at this time. He is given strict return precautions. ED Disposition - Plan for ED Patient: Disposition: Home or Assisted Living Diagnosis: Chest pain, Suspected 2019 novel coronavirus infection Instructions: ED Chest Pain Atypical Unkn Cause Referrals: Brandon Cullen MD [Primary Care Provider] -
[2020-03-20 23:48] LABS: Absolute Lymphocyte Count 2.23 X10^3/uL (0.83-4.51); Absolute Neutrophil Count 3.7 X10^3/uL (2.0-7.7); Basophil# 0.07 X10^3/uL; Eosinophil# 0.11 X10^3/uL; Eosinophils% 1.6 % (0-5); Hematocrit 43.4 % (40-54); Hemoglobin 14.7 g/dL (13.0-16.5); Lymphocyte # 2.23 X10^3/ul (4.0); Lymphocyte % 33.4 % (19-41); Mean Corp Hgb Conc 33.9 g/dL (32-36); Mean Corpuscular Hgb 30.6 pg (27.0-32.0); Mean Corpuscular Volume 90.2 fL (80-94); Mean Platelet Vol. 10.1 fl (6.2-12.0); Monocyte# 0.54 X10^3/uL; Monocyte% 8.1 % (0-10); NRBC Flagged by Analyzer 0 % (0-5); Neutrophil % 55.5 % (47-70); Platelet Count 266 K/mm3 (150-450); RBC Distribution Width CV 13.1 % (11.6-14.6); RBC Distribution Width SD 43.1 fl (35.1-43.9); Red Blood Count 4.81 M/mm3 (4.6-6.2); White Blood Count 6.7 K/mm3 (4.4-11.0)
[2020-03-20 23:56] VITALS: O2SAT 98
[2020-03-20 23:56] LABS: D-Dimer Quantitative (DVT/PE) 0.33 FEU/ug/m (0.27-0.49)
[2020-03-20] MEDS: Ondansetron 4 MG/2 ML Vial IV (23:58)
[2020-03-20] MEDS: Morphine 4 MG/ML Syringe IV (23:59)
[2020-03-21 00:02] LABS: ALB/GLOB Ratio 1.2 RATIO (0.9-2.4); AST(SGOT) 22 U/L (15-37); Alanine Aminotransfer ALT/SGPT 31 U/L (16-61); Albumin, Serum 4.4 g/dL (3.2-5.0); Alkaline Phosphatase 72 U/L (45-117); Anion Gap 4 (5-15); BUN 8 mg/dL (7-18); BUN/Creat Ratio 6.7 RATIO (10-20); Calcium,Total 9.4 mg/dL (8.5-10.1); Chloride 108 mmol/L (98-107); EST Glomerular Filtration Rate 73 mL/min (>60); Est Glom Filt Rate - Afr Amer 88 mL/min (>60); Estimated Creatinine Clearance 90.64 ml/min; Globulin 3.7 g/dL (2.2-4.2); Glucose 97 mg/dL (74-106); Potassium 3.5 mmol/L (3.5-5.1); Protein, Total 8.1 g/dL (6.4-8.2); Sodium Level 139 mmol/L (136-145)
[2020-03-21 01:23] VITALS: BP 115/78; PULSE 63; RESP 18; O2SAT 99
[2020-03-21 02:06] VITALS: RESP 16
== END 2020-03-21 02:07 | disposition home or self-care (01) ==
LOC: ED 03-21 00:23
PROVIDERS: Emergency Provider Student in an Organized Health Care Education/Training Program; PCP Family Medicine
DX: R07.89 Other chest pain (principal); R06.02 Shortness of breath; R05 Cough; F17.200 Nicotine dependence, unspecified, uncomplicated
CPT/HCPCS: 71045; 80053; 84484; 85025; 85379; 93005; 96361; 96374; 96375; 99284; J2405

== ENCOUNTER 2020-05-21 21:25 | Emergency (ER) | payer MEDICAID, SELFPAY ==
[2020-05-21 21:27] VITALS: BP 139/90; PULSE 93; RESP 18; TEMP 36.3; O2SAT 99; BMI 25.7
--- NOTE | 2020-05-21 21:38 | ED.VIS.GEN ---
History of Present Illness Chief Complaint: Other, Pain/Inj Informant: Patient Onset: Today Narrative: Patient presents with cramping started this morning left leg and onto left arm. He is right-hand dominant. 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 Reports some worsening dyspnea today, has a smoker's cough. Concerns for a bump in his abdomen by significant other. Nontender. Does report some bloating however is having daily bowel movements and passing gas. No nausea or vomiting. Denies history of gastric ulcers or kidney injury. Past Medical History - Allergies and Home Meds Allergies/Adverse Reactions: Allergies fluoxetine HCl [From Prozac] Adverse Reaction (Verified 05/21/20 21:26) Other ANXIETY ATTACK sertraline [From Zoloft] Adverse Reaction (Verified 05/21/20 21:26) Other PANIC ATTACK Primary Care Physician: Brandon Cullen MD [Primary Care Provider] - Past Medical History: - - Asthma Surgical History: - - Teeth removal. Smoking Status: Current every day smoker - Family History Maternal Family History: Reports: - - Patient notes that he does not know any of his internal or paternal family history. Paternal Family History: Reports: - - Patient notes that he does not know any of his internal or paternal family history. Review of Systems General: Denies: Chills, Fever, Sweats Eyes: Denies: Visual changes - bilaterally, Diplopia ENT: Denies: Rhinorrhea, Sore throat Cardiovascular: Denies: Chest pain, Palpitations Respiratory: Reports: Dyspnea, Cough. Denies: Dyspnea on exertion Gastrointestinal: Denies: Abdominal pain, Nausea, Vomiting, Diarrhea, Melena, Hematochezia Genitourinary: Denies: Dysuria, Hematuria, Frequency Musculoskeletal: Reports: Myalgias. Denies: Back pain, Extremity Pain Skin: Denies: Rash, Wounds Neurological: Denies: Headache, Weakness, Numbness Physical Exam Vital Signs/Narrative: Vital Signs Temp Pulse Resp BP Pulse Ox 05/21/20 21:27 97.3 F L 93 18 139/90 H 99 Inital Vital Signs reviewed: Yes General: Well nourished, Well developed, No Acute Distress Head: Normocephalic, Atraumatic Eyes: Perrl, EOMI ENT: Moist mucous membranes, No rhinorrhea Neck: Supple, Nontender Cardiovascular: Regular rate, Regular rhythm, No murmurs Respiratory: No distress, CTA bilaterally, Chest nontender Abdomen: Soft, Nontender, Nondistended, Normal bowel sounds, - - 1.5 cm nodule felt left upper mid abdomen, nontender. No erythema. Back: Nontender, Normal Inspection Extremities: No edema, - - Soft compartments of bilateral legs and arms. There is no tenderness muscles left upper arm. Full range of motion. Skin intact. Neurovascular intact. Skin: Normal color, No rash Neurological: Alert, Oriented x3, Cranial nerves II-XII grossly intact, Normal Strength, Normal Sensation Psychological: Normal affect, Normal Mood Diagnostic/Tx/Re-eval Abnormal Lab Results 05/21/20 22:18 Sodium 141 Potassium 3.7 Chloride 108 H Carbon Dioxide 28.0 Anion Gap 5 BUN 9 Creatinine 1.17 Estim Creat Clear Calc 92.96 Est GFR (MDRD) Af Amer 90 Est GFR (MDRD) Non-Af 75 BUN/Creatinine Ratio 7.7 L Glucose 100 Calcium 9.1 Clinical Impression(s) from Imaging Studies Chest X-Ray 05/21/20 22:04 IMPRESSION: No acute cardiopulmonary process. Electronically Signed: Chio Lofton MD at 22:32 EDT Tel , Service support , - Medical Decision Making Patient exam and abdomen concerns were lipoma. Is nontender. No signs of infection. With his shortness of breath and cough, chest x-ray negative. Discussed tobacco cessation. Patient is myalgias he is given Toradol IV fluids electrolytes obtained which were all normal. Improving symptoms reevaluation however still complaining of aches. He is given prescription for NSAIDs to use. Discussed continue oral hydration and follow-up as an outpatient. No signs of compartment syndrome. All questions were answered. ED Disposition - Plan for ED Patient: Disposition: Home or Assisted Living Diagnosis: Muscle cramps, Lipoma of abdominal wall Instructions: ED Muscle Pain Leg Cramps, ED Lipoma No Tx Prescriptions: Ibuprofen 600 mg PO 4X/DAY PRN #20 tab PRN Reason: Pain Or Fever Transmission Status: Pending to [facility] #30 Referrals: Brandon Cullen MD [Primary Care Provider] - 5-7 Days
--- NOTE | 2020-05-21 22:04 | RAD_ITS ---
STUDY: X-RAY CHEST REASON FOR EXAM: Male, 34 years old. LEFT LEG AND LEFT ARM CRAMPING/ PAIN SINCE YESTERDAY. SOME SOB AND ABDOMINAL BLOATING . TECHNIQUE: Frontal and lateral views of the chest. COMPARISON: 03/21/2020 FINDINGS: There is no new focal consolidation. The lungs remain hyperinflated. Normal size heart. Normal mediastinum and mey. Normal visualized pulmonary arteries. Normal visualized aortic arch and descending thoracic aorta. Normal visualized thoracic spine. Normal visualized ribs, clavicles, and shoulders. There is no demonstrated abnormality of the visualized soft tissue structures of the upper abdomen. RAD/Chest PA and Lateral IMPRESSION: No acute cardiopulmonary process. Electronically Signed: Chio Lofton MD at 22:32 EDT Tel , Service support ,
[2020-05-21] MEDS: 0.9% Normal Saline 1,000 ML 1000 ML IV (22:17)
[2020-05-21] MEDS: Ketorolac 30 MG/ML Syringe IV (22:17)
[2020-05-21 22:22] VITALS: RESP 16
[2020-05-21 22:41] LABS: Anion Gap 5 (5-15); BUN 9 mg/dL (7-18); BUN/Creat Ratio 7.7 RATIO (10-20); Calcium,Total 9.1 mg/dL (8.5-10.1); Chloride 108 mmol/L (98-107); Creatinine, Serum 1.17 mg/dL (0.70-1.30); EST Glomerular Filtration Rate 75 mL/min (>60); Est Glom Filt Rate - Afr Amer 90 mL/min (>60); Estimated Creatinine Clearance 92.96 ml/min; Glucose 100 mg/dL (74-106); Potassium 3.7 mmol/L (3.5-5.1); Sodium Level 141 mmol/L (136-145)
== END 2020-05-21 23:15 | disposition home or self-care (01) ==
PROVIDERS: Emergency Provider Emergency Medicine; PCP Family Medicine
DX: R25.2 Cramp and spasm (principal); D17.5 Benign lipomatous neoplasm of intra-abdominal organs; J45.909 Unspecified asthma, uncomplicated; F17.200 Nicotine dependence, unspecified, uncomplicated
CPT/HCPCS: 71046; 80048; 96361; 96374; 99284; J7030

== ENCOUNTER 2020-06-11 23:01 | Emergency (ER) | payer MEDICAID, SELFPAY ==
[2020-06-11 23:01] VITALS: BP 133/85; PULSE 89; RESP 18; TEMP 36.7; O2SAT 100; BMI 25.5
--- NOTE | 2020-06-11 23:25 | EKG12_ITS ---
Test Reason : SOB Blood Pressure : / mmHG Vent. Rate : 071 BPM Atrial Rate : 071 BPM P-R Int : 132 ms QRS Dur : 100 ms QT Int : 390 ms P-R-T Axes : 058 052 048 degrees QTc Int : 423 ms Normal sinus rhythm Normal ECG Confirmed by JONNY CARUSO, DEVIN ([id number]), editor managing director NIK BARCENAS ([id number]) on 06/17/2020 11:04:17 AM Referred By: DEMETRA Confirmed By:ETELVINA FULLER MD
--- NOTE | 2020-06-11 23:47 | ED.VIS.GEN ---
History of Present Illness Chief Complaint: Palpitations Detail of Chief Complaint: Palpitations x2, diarrhea x1 Informant: Patient Onset: Today Context: Sudden Onset Timing: Intermittent Quality: Palpitations lasting 5 minutes Location: Anterior left chest Current Severity: - - Recently patient is having no symptoms. Maximum Severity: Moderate Worsened by: Nothing Relieved by: Nothing Associated Symptoms: Lightheadedness x1 Narrative: Patient a 34-year-old male with no significant past medical history who admits to smoking 1 pack/day and presents with palpitations x2. Duration of palpitations 5 minutes. One episode of lightheadedness with standing. No headache, visual, ocular auditory symptoms. No complaint of rhinorrhea, congestion postnasal drainage. No complaint of ringing in ears, decreased hearing or drainage. He denies sore throat or neck pain. He denies chest pressure, tightness or heaviness. He denies shortness of breath. He denies nausea, vomiting but did report 1 loose watery stool. There was no blood or mucus. He denies urologic symptoms. He denies myalgias arthralgias. He denies rash. No ill contacts. No prior history. Prior similar symptoms: No Recent Illness/Hospitalization: No - Past Medical History (1) Anxiety and depression Status: Chronic Past Medical History - Allergies and Home Meds Allergies/Adverse Reactions: Allergies fluoxetine HCl [From Prozac] Adverse Reaction (Verified 06/11/20 23:03) Other ANXIETY ATTACK sertraline [From Zoloft] Adverse Reaction (Verified 06/11/20 23:03) Other PANIC ATTACK Primary Care Physician: Brandon Cullen MD [Primary Care Provider] - Prior records reviewed: Yes Surgical History: - - Teeth removal. Lives: With Family Smoking Status: Current every day smoker Alcohol: Rare Drugs: None - Family History Maternal Family History: Reports: - - Patient notes that he does not know any of his internal or paternal family history. Paternal Family History: Reports: - - Patient notes that he does not know any of his internal or paternal family history. Review of Systems General: Denies: Chills, Fever, Malaise, Subjective, Sweats Eyes: Denies: Visual changes - bilaterally, Blurred Vision - bilaterally ENT: Denies: Left ear pain, Right ear pain, Rhinorrhea, Sore throat Cardiovascular: Reports: Palpitations. Denies: Chest pain, Heart racing, -, - Respiratory: Denies: Dyspnea, Cough, Dyspnea on exertion, Orthopnea, Paroxysmal nocturnal dyspnea Gastrointestinal: Reports: Diarrhea. Denies: Nausea, Vomiting, Melena, Hematochezia Genitourinary: Denies: Dysuria, Hematuria, Frequency Musculoskeletal: Denies: Myalgias, Arthralgias, Swelling, Extremity Pain Skin: Denies: Rash, Wounds Neurological: Denies: Headache, Weakness Hematologic: Denies: Easy bruising, Easy bleeding Physical Exam Vital Signs/Narrative: Vital Signs Temp Pulse Resp BP Pulse Ox 06/11/20 23:01 98.0 F 89 18 133/85 H 100 Inital Vital Signs reviewed: Yes General: Well nourished, Well developed, No Acute Distress Head: Normocephalic, Atraumatic Eyes: Perrl, EOMI. Negative for: Pale conjunctiva, Scleral icterus ENT: Moist mucous membranes, No rhinorrhea, TM's clear Neck: Supple, Nontender, No lymphadenopathy, No JVD Cardiovascular: Regular rate, Regular rhythm, No murmurs, Normal S1, Normal S2 Respiratory: No distress, CTA bilaterally, Chest nontender Abdomen: Soft, Nontender, Nondistended, Normal bowel sounds, No masses Back: Nontender, Normal Inspection Extremities: Nontender, No edema Skin: Normal color, No rash, No Trauma. Negative for: Cyanosis, Diaphoresis, Jaundice Neurological: Alert, Oriented x3, Cranial nerves II-XII grossly intact, Normal Strength, Normal Sensation Psychological: Normal affect, Normal Mood Diagnostic/Tx/Re-eval Laboratory Results 06/11/20 23:20 Sodium 141 Potassium 3.6 Chloride 108 H Carbon Dioxide 24.0 Anion Gap 9 BUN 15 Creatinine 1.25 Estim Creat Clear Calc 87.01 Est GFR (MDRD) Af Amer 84 Est GFR (MDRD) Non-Af 69 BUN/Creatinine Ratio 12.0 Glucose 142 H Calcium 8.9 Blood sugar is elevated. Patient states he ate prior to presentation. During patient's 1.5-hour stay no dysrhythmia noted on the monitor. - Medical Decision Making EKG was obtained to assess for findings to suggest preexcitation syndrome i.e. WPW, Gutierrez longer long syndrome etc. Also to evaluate QT interval. Electrolytes were obtained to assess specifically potassium. He was placed on a monitor for observation to determine if he has any other episodes and if the episode is associated with dysrhythmia/PACs, PVCs, PAT. ED Disposition - Plan for ED Patient: Disposition: Home or Assisted Living Diagnosis: Palpitations with regular cardiac rhythm Instructions: ED Palpitations Referrals: Brandon Cullen MD [Primary Care Provider] - As Needed
[2020-06-11 23:57] LABS: Anion Gap 9 (5-15); BUN 15 mg/dL (7-18); Calcium,Total 8.9 mg/dL (8.5-10.1); Chloride 108 mmol/L (98-107); Creatinine, Serum 1.25 mg/dL (0.70-1.30); EST Glomerular Filtration Rate 69 mL/min (>60); Est Glom Filt Rate - Afr Amer 84 mL/min (>60); Estimated Creatinine Clearance 87.01 ml/min; Glucose 142 mg/dL (74-106); Potassium 3.6 mmol/L (3.5-5.1); Sodium Level 141 mmol/L (136-145)
[2020-06-12 00:05] VITALS: BP 116/71; PULSE 69; RESP 16; O2SAT 94
[2020-06-12 00:47] VITALS: BP 112/62; PULSE 77; RESP 14; O2SAT 96
== END 2020-06-12 00:47 | disposition home or self-care (01) ==
PROVIDERS: Emergency Provider Emergency Medicine; PCP Family Medicine
DX: R00.2 Palpitations (principal); F17.200 Nicotine dependence, unspecified, uncomplicated
CPT/HCPCS: 80048; 93005; 99284; A4216

== ENCOUNTER 2020-07-24 21:41 | Emergency (ER) | payer MEDICAID, SELFPAY ==
[2020-07-24 21:42] VITALS: BP 146/80; PULSE 90; RESP 18; TEMP 36.1; O2SAT 100; BMI 25.5
--- NOTE | 2020-07-24 22:45 | ED.VIS.GEN ---
History of Present Illness Chief Complaint: Abd Pain Informant: Patient Narrative: 34-year-old male presenting with sensation of bloating and he feels pressure in his epigastrium. He states that he tried to eat a worst at dinner and it came straight up. He states he did not even feel nauseous. Now he feels bloated. He denies changes in urinary habits. He denies dysuria or hematuria. He states that his stools have been normal. He has not had fever, chills. He has not had any previous surgeries on his abdomen. He states he is a smoker but does not drink alcohol. He denies doing drugs. He stated he had a previous history of bacteremia distantly and had sepsis. - Past Medical History (1) Anxiety and depression Status: Chronic Past Medical History - Allergies and Home Meds Allergies/Adverse Reactions: Allergies fluoxetine HCl [From Prozac] Adverse Reaction (Verified 07/24/20 21:43) Other ANXIETY ATTACK sertraline [From Zoloft] Adverse Reaction (Verified 07/24/20 21:43) Other PANIC ATTACK Primary Care Physician: Brandon Cullen MD [Primary Care Provider] - Past Medical History: - - Reviewed in problem list Surgical History: - - Teeth removal. Lives: Alone Smoking Status: Current every day smoker Alcohol: None Drugs: None - Family History Maternal Family History: Reports: - - Patient notes that he does not know any of his internal or paternal family history. Paternal Family History: Reports: - - Patient notes that he does not know any of his internal or paternal family history. Review of Systems General: Denies: Chills, Fever, Sweats Eyes: Denies: Visual changes - bilaterally, Diplopia ENT: Denies: Rhinorrhea, Sore throat Cardiovascular: Denies: Chest pain, Palpitations Respiratory: Denies: Dyspnea, Cough, Dyspnea on exertion Gastrointestinal: Reports: Abdominal pain, Vomiting. Denies: Nausea Genitourinary: Denies: Dysuria, Hematuria, Frequency Musculoskeletal: Denies: Myalgias, Back pain, Extremity Pain Skin: Denies: Rash, Wounds Neurological: Denies: Headache, Weakness, Numbness Psych: Denies: Depression, Anxiety, Suicidal thoughts, Suicidal ideations, -, - Physical Exam Vital Signs/Narrative: Vital Signs Temp Pulse Resp BP Pulse Ox 07/24/20 21:42 96.9 F L 90 18 146/80 H 100 Inital Vital Signs reviewed: Yes General: Well nourished, No Acute Distress Head: Normocephalic, Atraumatic Eyes: Perrl, EOMI. Negative for: Scleral icterus ENT: Moist mucous membranes, No rhinorrhea Cardiovascular: Regular rate, Regular rhythm Respiratory: No distress, CTA bilaterally, Chest nontender Abdomen: Soft, Nondistended, Tender - Minimally tender to palpation in the epigastric region. Patient describes this as fullness. Extremities: Nontender, No edema Skin: Normal color, No rash. Negative for: Jaundice Neurological: Alert, Oriented x3 Psychological: Normal affect, Normal Mood Diagnostic/Tx/Re-eval Clinical Impression(s) from Imaging Studies Abdomen CT 07/25/20 22:53 IMPRESSION: Negative enhanced CT of the abdomen. No interval change. Electronically Signed: Deng Foster, at 0:45 EST Tel , Service support , Laboratory Data 07/24/20 07/24/20 07/24/20 23:18 23:18 23:20 WBC 6.8 RBC 4.52 L Hgb 13.8 Hct 41.3 MCV 91.4 MCH 30.5 MCHC 33.4 RDW Std Deviation 41.4 RDW Coeff of Ara 12.5 Plt Count 233 MPV 9.4 Immature Gran % (Auto) 0.100 Neut % (Auto) 55.6 Lymph % (Auto) 30.0 Pi[place] % (Auto) 10.9 H Eos % (Auto) 2.2 Baso % (Auto) 1.2 H Absolute Neuts (auto) 3.8 Absolute Lymphs (auto) 2.04 Nucleated RBC % 0 Sodium 139 Potassium 3.5 Chloride 107 Carbon Dioxide 29.0 Anion Gap 3 L BUN 13 Creatinine 1.08 Estim Creat Clear Calc 100.71 Est GFR (MDRD) Af Amer 99 Est GFR (MDRD) Non-Af 82 BUN/Creatinine Ratio 12.0 Glucose 98 Calcium 9.1 Total Bilirubin 0.80 AST 19 ALT 32 Alkaline Phosphatase 70 Total Protein 7.5 Albumin 3.9 Globulin 3.6 Albumin/Globulin Ratio 1.1 Lipase 78 Urine Color Yellow Urine Clarity Sl. Cloudy Urine pH 6.5 Ur Specific Mccormick 1.020 Urine Protein Negative Urine Glucose (UA) Normal Urine Ketones 5 H Urine Occult Blood Negative Urine Nitrite Negative Urine Bilirubin Negative Urine Urobilinogen 1 H Ur Leukocyte Esterase 25 H Urine RBC 0 SEEN Urine WBC 0-5 SEEN Ur Squamous Epith Cells 0-5 SEEN Urine Bacteria 0 SEEN Urine Mucus 0 SEEN - Medical Decision Making Patient presents with abdominal fullness and does not describe this as lizzie pain. He states he vomited up a bratwurst but states he never had any nausea. On exam he has some very mild epigastric fullness/tenderness. Lab work is all within normal limits. CT abdomen pelvis is negative. Patient's vital signs are stable and he is afebrile. [facility] is given return precautions. Impression: 1. Abdominal pain unknown cause 2. Vomiting ED Disposition - Plan for ED Patient: Disposition: Home or Assisted Living Instructions: ED Unknown Causes of Abdominal Pain Male, ED Diet for Vomiting or Diarrhea Adult Referrals: Brandon Cullen MD [Primary Care Provider] -
[2020-07-24] MEDS: 0.9% Normal Saline 1,000 ML 1000 ML IV (23:15)
[2020-07-24 23:25] LABS: Bacteria 0 SEEN /hpf (None Seen); Mucous, Urine 0 SEEN /hpf (<or=2+); Red Blood Cells-Urine 0 SEEN /hpf (0-5)
[2020-07-24 23:27] LABS: Absolute Lymphocyte Count 2.04 X10^3/uL (0.83-4.51); Absolute Neutrophil Count 3.8 X10^3/uL (2.0-7.7); Basophil# 0.08 X10^3/uL; Basophil% 1.2 % (0-1); Eosinophil# 0.15 X10^3/uL; Eosinophils% 2.2 % (0-5); Hematocrit 41.3 % (40-54); Hemoglobin 13.8 g/dL (13.0-16.5); Lymphocyte # 2.04 X10^3/ul (4.0); Mean Corp Hgb Conc 33.4 g/dL (32-36); Mean Corpuscular Hgb 30.5 pg (27.0-32.0); Mean Corpuscular Volume 91.4 fL (80-94); Mean Platelet Vol. 9.4 fl (6.2-12.0); Monocyte# 0.74 X10^3/uL; Monocyte% 10.9 % (0-10); NRBC Flagged by Analyzer 0 % (0-5); Neutrophil # 3.77 X10^3/uL (2.7-7.7); Neutrophil % 55.6 % (47-70); Platelet Count 233 K/mm3 (150-450); RBC Distribution Width CV 12.5 % (11.6-14.6); RBC Distribution Width SD 41.4 fl (35.1-43.9); Red Blood Count 4.52 M/mm3 (4.6-6.2); White Blood Count 6.8 K/mm3 (4.4-11.0)
[2020-07-24 23:28] LABS: Color, Urine Yellow (Yellow); Glucose, Dipstick Normal (Normal); Ketone-Dipstick 5 mg/dl (Negative); Leukocyte Esterase-Dipstick 25 /ul (Negative); Nitrite-Dipstick Negative (Negative); Occult Blood-Urine Negative /ul (Negative); Protein-Dipstick Negative (Negative); Urine Bilirubin Dipstick Negative (Negative); Urine Clarity Sl. Cloudy (Clear); Urine Urobilinogen 1 mg/dl (Normal); Urine pH 6.5 (5.0 - 8.0)
[2020-07-24 23:35] LABS: Squamous Epithelial Cells - UA 0-5 SEEN /hpf (0-5); White Blood Cells 0-5 SEEN /hpf (0-5)
[2020-07-24 23:46] LABS: ALB/GLOB Ratio 1.1 RATIO (0.9-2.4); AST(SGOT) 19 U/L (15-37); Alanine Aminotransfer ALT/SGPT 32 U/L (16-61); Albumin, Serum 3.9 g/dL (3.2-5.0); Alkaline Phosphatase 70 U/L (45-117); Anion Gap 3 (5-15); BUN 13 mg/dL (7-18); Calcium,Total 9.1 mg/dL (8.5-10.1); Chloride 107 mmol/L (98-107); Creatinine, Serum 1.08 mg/dL (0.70-1.30); EST Glomerular Filtration Rate 82 mL/min (>60); Est Glom Filt Rate - Afr Amer 99 mL/min (>60); Estimated Creatinine Clearance 100.71 ml/min; Globulin 3.6 g/dL (2.2-4.2); Glucose 98 mg/dL (74-106); Lipase 78 U/L (73-393); Potassium 3.5 mmol/L (3.5-5.1); Protein, Total 7.5 g/dL (6.4-8.2); Sodium Level 139 mmol/L (136-145)
[2020-07-25 00:38] VITALS: BP 108/67; PULSE 69; RESP 16; O2SAT 99
--- NOTE | 2020-07-25 22:53 | CT_ITS ---
STUDY: CT ABDOMEN WITH CONTRAST REASON FOR EXAM: Male, 34 years old. C/O UPPER MID ABD PAIN WITH BLOATING, N/V, HX CHRONIC DIARRHEA RADIATION DOSAGE (If Supplied By Facility): CTDIvol = ( 10.69 ) mGy, DLP = ( 375.49 ) mGycm TECHNIQUE: Transaxial images were obtained post I.V. administration of IV 100mL Isovue-370, and without oral contrast. Sagittal and coronal images were reconstructed. Individualized dose optimization techniques were used for this CT. COMPARISON: CT abdomen from 01/28/2020. FINDINGS: The visualized lung bases are unremarkable. The visualized portions of the heart are within normal limits. Normal liver. Normal gallbladder and extrahepatic biliary system. Normal spleen. Normal pancreas. Normal bilateral adrenal glands. Stable probably lymph node adjacent to the left adrenal gland measuring 1.4 x 0.7 cm. Normal right kidney. Normal left kidney. Normal visualized stomach. Normal small intestine. Normal colon. There is non-visualization of the appendix. Normal abdominal aorta. Normal inferior vena cava. Normal retroperitoneum. Normal abdominal wall. Normal osseous structures. CT/Abdomen WITH IV Contrast IMPRESSION: Negative enhanced CT of the abdomen. No interval change. Electronically Signed: Deng Foster, at 0:45 EST Tel , Service support ,
== END 2020-07-25 01:10 | disposition home or self-care (01) ==
PROVIDERS: Emergency Provider Student in an Organized Health Care Education/Training Program; PCP Family Medicine
DX: R10.13 Epigastric pain (principal); R11.10 Vomiting, unspecified; F17.200 Nicotine dependence, unspecified, uncomplicated
CPT/HCPCS: 74160; 80053; 81001; 83690; 85025; 96360; 99283; J7030; Q9967

== ENCOUNTER 2020-08-05 11:11 | Emergency (ER) | payer MEDICAID, SELFPAY ==
[2020-08-05 11:12] VITALS: BP 130/81; PULSE 88; RESP 17; TEMP 36.5; O2SAT 96; BMI 25.2
--- NOTE | 2020-08-05 11:45 | ED.VIS.GEN ---
History of Present Illness Chief Complaint: Sore Throat Informant: Patient Onset: Today Context: Sudden Onset Timing: Continuous Quality: Pain/fullness Location: Anterior neck/larynx Current Severity: Mild Maximum Severity: Moderate Worsened by: Swallowing Relieved by: Nothing Associated Symptoms: Change in voice, fullness with swallowing Narrative: Patient is a 34-year-old male who presents with fullness in his neck and fullness when he swallows. He has had no drooling. He denies fever, chills night sweats. He states he has a runny nose because he works outside. This is nothing new. He denies earache, ringing in his ears or ear drainage. He denies chest pain, shortness of breath or cough. He denies nausea, vomiting diarrhea. He denies rash. He denies myalgias or arthralgias. He has no known ill contacts. Prior similar symptoms: No Recent Illness/Hospitalization: No - Past Medical History (1) Anxiety and depression Status: Chronic Past Medical History - Allergies and Home Meds Allergies/Adverse Reactions: Allergies fluoxetine HCl [From Prozac] Adverse Reaction (Verified 08/05/20 11:11) Other ANXIETY ATTACK sertraline [From Zoloft] Adverse Reaction (Verified 08/05/20 11:11) Other PANIC ATTACK Primary Care Physician: Brandon Cullen MD [STAFF PHYSICIAN] - Prior records reviewed: Yes Surgical History: - - Teeth removal. Lives: Alone Smoking Status: Current every day smoker Alcohol: Rare Drugs: None - Family History Maternal Family History: Reports: - - Patient notes that he does not know any of his internal or paternal family history. Paternal Family History: Reports: - - Patient notes that he does not know any of his internal or paternal family history. Review of Systems General: Denies: Chills, Fever, Malaise, Subjective, Sweats Eyes: Denies: Visual changes - bilaterally, Diplopia ENT: Denies: Bilateral ear pain, Rhinorrhea, Sore throat Cardiovascular: Denies: Chest pain, Palpitations Respiratory: Reports: Cough - Chronic cough, which she attributes to smoking.. Denies: Dyspnea, Sputum, Dyspnea on exertion Gastrointestinal: Denies: Abdominal pain, Nausea, Vomiting, Diarrhea, Constipation, Melena, Hematochezia Genitourinary: Denies: Dysuria, Hematuria, Frequency Musculoskeletal: Reports: Neck pain. Denies: Myalgias, Arthralgias, Back pain, Swelling, Extremity Pain Skin: Denies: Rash, Wounds Neurological: Denies: Headache, Weakness, Numbness Allergy: Denies: Uticaria, Swelling of the mouth, Swelling of the tongue Physical Exam Vital Signs/Narrative: Vital Signs Temp Pulse Resp BP Pulse Ox 08/05/20 11:12 97.7 F L 88 17 130/81 H 96 Inital Vital Signs reviewed: Yes General: Well nourished, Well developed, - - Patient does not appear toxic. He he appears ill. Head: Normocephalic, Atraumatic Eyes: Perrl, EOMI. Negative for: Pale conjunctiva, Scleral icterus ENT: Moist mucous membranes, No rhinorrhea, TM's clear, - - Uvula is midline. There is slight erythema of the posterior pharynx. There is no exudate. Trachea is midline. There is no inspiratory expiratory stridor. There is no trismus. Neck: Supple, Nontender, No lymphadenopathy, No JVD Cardiovascular: Regular rate, Regular rhythm, No murmurs, Normal S1, Normal S2 Respiratory: No distress, CTA bilaterally, Chest nontender Extremities: Nontender, No edema Skin: Normal color, No rash, No Trauma. Negative for: Cyanosis, Diaphoresis, Jaundice Neurological: Alert, Oriented x3, Cranial nerves II-XII grossly intact, Normal Strength, Normal Sensation Psychological: Normal affect Diagnostic/Tx/Re-eval Chest X-Ray - ED: 2 View, Read by ED Physician, - - There is no sublingual or tonsil swelling. There is no swelling of the prevertebral space. There is no evidence of epiglottitis. There is no supraglottic swelling noted. The x-ray was interpreted by me at 1219. Impressions Soft Tissue Neck X-Ray 08/05/20 12:00 IMPRESSION: Normal x-ray soft tissue neck. Electronically Signed: Malvin Hutchinson, at 12:23 EST , Service support , 08/05/20 12:00 Xray Neck Soft Tissue [Neck for Soft Tissue] [RAD] Stat 08/05/20 11:30 Mucosa - Throat Group A Streptococcus Rapid Screen - Preliminary Strep was negative. Patient was treated for viral pharyngitis. - Medical Decision Making Differential diagnosis includes viral infection, strep pharyngitis, epiglottitis. Strep screen was obtained as well as soft tissue x-ray of the neck. ED Disposition - Plan for ED Patient: Disposition: Home or Assisted Living Diagnosis: Pharyngitis, acute Instructions: ED Pharyngitis, Report Pending Referrals: Brandon Cullen MD [STAFF PHYSICIAN] - 3-5 Days if not improving Additional Instructions: If you have difficulty swallowing and specifically drooling or unable to open your mouth completely return to the emergency department. The cause of your throat discomfort is a viral infection.
--- NOTE | 2020-08-05 12:00 | RAD_ITS ---
STUDY: X-RAY - SOFT TISSUE NECK REASON FOR EXAM: Male, 34 years old. Sore throat, fullness in anterior neck, change in voice TECHNIQUE: 2 view(s) of the neck were obtained. COMPARISON: None. FINDINGS: Normal visualized nasopharynx, oropharynx, hypopharynx. Normal epiglottis. Normal visualized subglottic tracheal air column. Normal prevertebral soft tissue structures. Normal visualized osseous structures. The soft tissue structures are unremarkable. RAD/Neck for Soft Tissue IMPRESSION: Normal x-ray soft tissue neck. Electronically Signed: Malvin Hutchinson, at 12:23 EST , Service support ,
[2020-08-05 13:10] VITALS: BP 128/74; PULSE 89; RESP 17; O2SAT 97
== END 2020-08-05 13:46 | disposition home or self-care (01) ==
PROVIDERS: Emergency Provider Emergency Medicine
DX: J02.9 Acute pharyngitis, unspecified (principal); F17.200 Nicotine dependence, unspecified, uncomplicated
CPT/HCPCS: 70360; 87880; 99282

== ENCOUNTER 2020-08-08 10:04 | Emergency (ER) | payer MEDICAID, SELFPAY ==
[2020-08-08 10:05] VITALS: BP 121/83; PULSE 96; RESP 18; TEMP 36.5; O2SAT 100; BMI 26.2
--- NOTE | 2020-08-08 11:02 | EKG12_ITS ---
Test Reason : SYNCOPE Blood Pressure : / mmHG Vent. Rate : 071 BPM Atrial Rate : 071 BPM P-R Int : 130 ms QRS Dur : 100 ms QT Int : 384 ms P-R-T Axes : 062 048 051 degrees QTc Int : 417 ms Normal sinus rhythm with sinus arrhythmia Normal ECG Confirmed by ZAINA CARUSO, DELORES ([id number]), primer expeditor and drier SINTIA BRANDON ([id number]) on 08/10/2020 1:25:53 PM Referred By: BB Confirmed By:DELORES MAHAJAN MD
--- NOTE | 2020-08-08 11:03 | ED.VIS.GEN ---
History of Present Illness Chief Complaint: Syncope Informant: Patient Onset: Today Context: Gradual Onset Timing: Lasts - x1, several minutes Quality: prodromal lightheadedness, followed by syncope when stood Current Severity: gone Maximum Severity: Severe Worsened by: standing Relieved by: lying Associated Symptoms: racing HB Narrative: Patient has had bronchitis for the past week according to him, he states he has had a nonproductive cough, sore throat, occasional rhinorrhea. No fevers, myalgias, loss of taste or smell. He has had 2 different visits to physicians at emergency department, has not been tested for Covid although there is a surge currently in the pandemic. He has never had Covid. He is a smoker. He is otherwise healthy. 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 He did not feel well and so he went to sit down in the break room. He did not feel the palpitations the whole time but he still felt lightheaded. Someone helped him stand up and then he blacked out, there was no fall/injury. He was brought to the emergency department now he feels back to normal. He has never had this happen before and denies any known dysrhythmias or heart problems. He does not do any other illicit substances/drugs. Past Medical History - Allergies and Home Meds Allergies/Adverse Reactions: Allergies fluoxetine HCl [From Prozac] Adverse Reaction (Verified 08/08/20 10:12) Other ANXIETY ATTACK sertraline [From Zoloft] Adverse Reaction (Verified 08/08/20 10:12) Other PANIC ATTACK Primary Care Physician: Brandon Cullen MD [Primary Care Provider] - Past Medical History: None Surgical History: - - Teeth removal. Smoking Status: Current every day smoker - Family History Maternal Family History: Reports: - - Patient notes that he does not know any of his internal or paternal family history. Paternal Family History: Reports: - - Patient notes that he does not know any of his internal or paternal family history. Review of Systems General: Reports: Malaise - And lightheadedness. See HPI.. Denies: Chills, Fever, Sweats Eyes: Denies: Visual changes - bilaterally, Diplopia ENT: Reports: Rhinorrhea, Sore throat, - - No loss of taste/smell. Denies: Bilateral ear pain Cardiovascular: Reports: Palpitations, Heart racing. Denies: Chest pain Respiratory: Reports: Cough. Denies: Dyspnea, Sputum, Dyspnea on exertion Gastrointestinal: Reports: Nausea - When presyncopal. Denies: Abdominal pain, Vomiting, Diarrhea, Melena, Hematochezia Genitourinary: Denies: Dysuria, Hematuria, Frequency Musculoskeletal: Denies: Myalgias, Back pain, Extremity Pain Skin: Denies: Rash, Wounds Neurological: Denies: Headache, Weakness, Numbness Physical Exam Vital Signs/Narrative: Vital Signs Temp Pulse Resp BP Pulse Ox 08/08/20 10:05 97.7 F L 96 18 121/83 H 100 Inital Vital Signs reviewed: Yes General: Well nourished, Well developed, No Acute Distress Head: Normocephalic, Atraumatic Eyes: Perrl, EOMI ENT: Moist mucous membranes, No rhinorrhea, - - Posterior oropharynx clear Neck: Supple, Nontender, No lymphadenopathy Cardiovascular: Regular rate, Regular rhythm, No murmurs, Normal S1, Normal S2. Negative for: Tachycardia, Bradycardia Respiratory: No distress, CTA bilaterally, Chest nontender Abdomen: Soft, Nontender, Nondistended, Normal bowel sounds Back: Nontender, Normal Inspection Extremities: Nontender, No edema. Negative for: Calf Tenderness Skin: Normal color, No rash, No Trauma Neurological: Alert, Oriented x3, Cranial nerves II-XII grossly intact, Normal Strength, Normal Sensation, Normal Gait Psychological: Normal affect, Normal Mood Diagnostic/Tx/Re-eval Laboratory Results 08/08/20 08/08/20 11:10 11:10 WBC 6.4 RBC 4.63 Hgb 14.4 Hct 42.3 MCV 91.4 MCH 31.1 MCHC 34.0 RDW Std Deviation 40.9 RDW Coeff of Ara 12.4 Plt Count 237 MPV 9.1 Immature Gran % (Auto) 0.300 Neut % (Auto) 62.1 Lymph % (Auto) 24.3 [place] % (Auto) 10.6 H Eos % (Auto) 1.6 Baso % (Auto) 1.1 H Absolute Neuts (auto) 4.0 Absolute Lymphs (auto) 1.54 Nucleated RBC % 0 Sodium 138 Potassium 4.3 Chloride 106 Carbon Dioxide 30.0 Anion Gap 2 L BUN 13 Creatinine 1.03 Estim Creat Clear Calc 105.60 Est GFR (MDRD) Af Amer 105 Est GFR (MDRD) Non-Af 86 BUN/Creatinine Ratio 12.6 Glucose 87 Calcium 9.6 Troponin I < 0.015 - Rhythm Strip Rhythm Strip: Sinus Rhythm Rate: 70 Ectopy: None - EKG Initial EKG Interpretation: Sinus Rhythm, No Acute Injury Pattern - Normal EKG Prior: No Prior - Medical Decision Making Patient was able to ambulate without any lightheadedness, he basically feels back to normal. His work-up is unremarkable he had no ectopy, telemetry events, or recurrent symptoms while in the emergency department. I did send an outpatient Covid test. He does not have the classic syndrome, however presentation can be variable. He was thankful for us doing this since no one else did. He was advised to quarantine in the meantime. With regards to his syncope, differential includes tacky dysrhythmias, vasovagal reaction although there was not an obvious trigger for 1 given the history. He was not coughing at the time of the symptoms starting. I discussed his case with cardiology Dr. Barrera who agrees with trying to place a Holter monitor on him, but after discussing with respiratory, there are none available to place right now. Patient was advised to follow-up, given the day off work, and advised to quarantine himself until his test results come back. ED Disposition - Plan for ED Patient: Disposition: Home or Assisted Living Diagnosis: Upper respiratory infection, viral, Syncope Instructions: ED Fainting, Vagal Reaction, ED Fainting, Uncertain Cause, Coronavirus Disease 2019 (COVID-19): Overview Referrals: Brandon Cullen MD [Primary Care Provider] - Rex Barrera MD [STAFF PHYSICIAN] - 1 Week Additional Instructions: You were tested for COVID-19, however it is sent to an offsite laboratory, and will likely take 3-5 days to come back. Reference the pamphlet including with your discharge papers for information on setting up an online portal account to check the results yourself. Keep well-hydrated. Keep quarantined wearing a mask when around any other persons until your test comes back negative.
[2020-08-08 11:09] VITALS: BP 124/78; PULSE 86; RESP 15; O2SAT 99
[2020-08-08 11:27] LABS: Absolute Lymphocyte Count 1.54 X10^3/uL (0.83-4.51); Basophil# 0.07 X10^3/uL; Basophil% 1.1 % (0-1); Eosinophils% 1.6 % (0-5); Hematocrit 42.3 % (40-54); Hemoglobin 14.4 g/dL (13.0-16.5); Lymphocyte # 1.54 X10^3/ul (4.0); Lymphocyte % 24.3 % (19-41); Mean Corpuscular Hgb 31.1 pg (27.0-32.0); Mean Corpuscular Volume 91.4 fL (80-94); Mean Platelet Vol. 9.1 fl (6.2-12.0); Monocyte# 0.67 X10^3/uL; Monocyte% 10.6 % (0-10); NRBC Flagged by Analyzer 0 % (0-5); Neutrophil # 3.95 X10^3/uL (2.7-7.7); Neutrophil % 62.1 % (47-70); Platelet Count 237 K/mm3 (150-450); RBC Distribution Width CV 12.4 % (11.6-14.6); RBC Distribution Width SD 40.9 fl (35.1-43.9); Red Blood Count 4.63 M/mm3 (4.6-6.2); White Blood Count 6.4 K/mm3 (4.4-11.0)
[2020-08-08 11:47] LABS: Anion Gap 2 (5-15); BUN 13 mg/dL (7-18); BUN/Creat Ratio 12.6 RATIO (10-20); Calcium,Total 9.6 mg/dL (8.5-10.1); Chloride 106 mmol/L (98-107); Creatinine, Serum 1.03 mg/dL (0.70-1.30); EST Glomerular Filtration Rate 86 mL/min (>60); Est Glom Filt Rate - Afr Amer 105 mL/min (>60); Glucose 87 mg/dL (74-106); Potassium 4.3 mmol/L (3.5-5.1); Sodium Level 138 mmol/L (136-145)
[2020-08-08 12:00] VITALS: BP 114/76; PULSE 61; RESP 15; O2SAT 98
[2020-08-08 12:57] VITALS: BP 106/73; PULSE 68; RESP 20; O2SAT 98
== END 2020-08-08 13:05 | disposition home or self-care (01) ==
PROVIDERS: Emergency Provider Emergency Medicine; PCP Family Medicine
DX: J06.9 Acute upper respiratory infection, unspecified (principal); R55 Syncope and collapse; F17.200 Nicotine dependence, unspecified, uncomplicated
CPT/HCPCS: 80048; 84484; 85025; 87635; 93005; 99285; A4216; U0003

== ENCOUNTER 2020-09-11 10:14 | Emergency (ER) | payer MEDICAID, SELFPAY ==
[2020-09-10 11:15] VITALS: BMI 25.5
[2020-09-11 10:15] VITALS: BP 129/75; PULSE 93; RESP 19; TEMP 36.3; O2SAT 99; BMI 25.5
[2020-09-11 10:25] VITALS: O2SAT 98
--- NOTE | 2020-09-11 10:25 | EKG12_ITS ---
Test Reason : PALP,CP Blood Pressure : / mmHG Vent. Rate : 087 BPM Atrial Rate : 087 BPM P-R Int : 130 ms QRS Dur : 098 ms QT Int : 352 ms P-R-T Axes : 070 048 064 degrees QTc Int : 423 ms Normal sinus rhythm Normal ECG Confirmed by LYNDSAY CARUSO, REMA ([id number]), video tape editor NIK BARCENAS ([id number]) on 09/14/2020 9:41:19 AM Referred By: VICKI Confirmed By:REMA UMANA MD
--- NOTE | 2020-09-11 10:26 | ED.DCSUM_ITS ---
- ER Visit Summary Date of Service: 09/11/20 Chief Complaint: [Chest pain and racing heart] History of Present Illness: The patient is a 35 M [presents to the emergency department complaint of racing heart that started around 8:30 AM while at work today. 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 Denied any radiation. He did get nauseated and vomited once. States he had a similar episode recently where he had a syncopal episode associated with it and he was evaluated in the emergency department. Patient followed up with cardiology yesterday and has a scheduled stress test ordered for the of this month as well as a tilt table test. Patient has already had a cardiac echo which showed an EF of 65% and essentially nothing else remarkable. Patient has had a Holter monitor that he wore for about 7 days that just showed occasional PACs and occasional PVCs. Patient denies history of PE or DVT. He said no recent travel or surgery. He denies recent illness or COVID-19 exposures. Patient states that his sister has history of heart trouble and takes heart medicine but he does not know what kind of heart trouble. No known family history of VA at a young age.] Patient has history of anxiety but states this is different than what he is ever felt. He does not believe it is anxiety. Patient denies being under more stress than usual. Physical Examination: [HEENT-PERRLA, EOMI. Cranial nerves II through XII grossly intact. TMs clear. Mucous membranes moist. No adenopathy. Cardiovascular-regular rate and rhythm without murmur or ectopy Lungs-clear to auscultation, chest wall stable without crepitus or subcu emphysema Abdomen-normoactive bowel sounds, soft, nontender, no rebound or rigidity, no peritoneal signs. Extremities-intact ?4, normal range of motion, normal pulses, atraumatic] Test Results: [EKG obtained arrival shows sinus rhythm with a ventricular rate of 87 bpm with no acute segment changes. CBC with differential showed organ of 6.7, hemoglobin 15, hematocrit 45, placed 252. Chemistries unremarkable. Troponin is less than 0.015. D-dimer was normal at 0.29. Orthostatic vital signs were negative. Chest x-ray read by myself as no acute disease process. Radiology interpretation in agreement.] Emergency Department Course and Treatment: IV line established on arrival. Patient placed on a cardiac/vascular sonographer. Patient case was discussed with perfect binder setter on-call Dr. Rex Barrera who given that the patient has a heart score of 2 and is considered low risk recommended that we obtain a delta troponin or give patient the option of admission for further stress testing which she has scheduled for the as well as an outpatient. Patient and I had a long discussion regarding delta troponin versus admission for further stress testing and he would prefer to go home after a delta troponin if possible. I feel this is reasonable given that patient is low risk. Patient's delta troponin was normal. [] Treatment Plan: [Patient keep his appointment for stress testing on September 22. Patient to return if worsening chest pain, increasing shortness of breath, or condition should worsen anyway.] Disposition: [Discharged home in stable condition] Impression: [Chest pain-etiology uncertain] This note was generated with [employer] dictation software. It may contain incorrect words, spelling, and punctuation that were not noted in review of the chart prior to signing ED Disposition - Plan for ED Patient: Referrals: Brandon Cullen MD [Primary Care Provider] -
[2020-09-11] MEDS: 0.9% Normal Saline 1,000 ML 150 ML IV (10:40)
[2020-09-11] MEDS: Aspirin 81 MG TAB.CHEW 324 MG PO (10:40)
[2020-09-11 10:51] LABS: Absolute Lymphocyte Count 1.74 X10^3/uL (0.83-4.51); Absolute Neutrophil Count 4.2 X10^3/uL (2.0-7.7); Basophil# 0.07 X10^3/uL; Eosinophil# 0.11 X10^3/uL; Eosinophils% 1.6 % (0-5); Hematocrit 44.7 % (40-54); Lymphocyte # 1.74 X10^3/ul (4.0); Lymphocyte % 25.9 % (19-41); Mean Corp Hgb Conc 33.6 g/dL (32-36); Mean Corpuscular Hgb 30.4 pg (27.0-32.0); Mean Corpuscular Volume 90.7 fL (80-94); Mean Platelet Vol. 9.6 fl (6.2-12.0); Monocyte# 0.58 X10^3/uL; Monocyte% 8.6 % (0-10); NRBC Flagged by Analyzer 0 % (0-5); Neutrophil # 4.19 X10^3/uL (2.7-7.7); Neutrophil % 62.6 % (47-70); Platelet Count 252 K/mm3 (150-450); RBC Distribution Width CV 12.3 % (11.6-14.6); RBC Distribution Width SD 40.7 fl (35.1-43.9); Red Blood Count 4.93 M/mm3 (4.6-6.2); White Blood Count 6.7 K/mm3 (4.4-11.0)
[2020-09-11 10:56] LABS: Anion Gap 1 (5-15); BUN 13 mg/dL (7-18); BUN/Creat Ratio 11.8 RATIO (10-20); Calcium,Total 9.4 mg/dL (8.5-10.1); Chloride 108 mmol/L (98-107); EST Glomerular Filtration Rate 80 mL/min (>60); Est Glom Filt Rate - Afr Amer 97 mL/min (>60); Estimated Creatinine Clearance 97.93 ml/min; Glucose 84 mg/dL (74-106); Potassium 3.9 mmol/L (3.5-5.1); Sodium Level 139 mmol/L (136-145)
[2020-09-11 10:57] LABS: D-Dimer Quantitative (DVT/PE) 0.29 FEU/ug/m (0.27-0.49)
--- NOTE | 2020-09-11 11:00 | RAD_ITS ---
STUDY: X-RAY CHEST REASON FOR EXAM: Male, 35 years old. Palpitations and chest pressure TECHNIQUE: Single AP portable view of the chest. COMPARISON: Comparison is made with prior study dated 05/21/2020. FINDINGS: EKG electrodes are seen. The lungs are clear and expanded. There is no demonstrated pleural abnormality. Normal size heart. Normal mediastinum and mey. Normal visualized pulmonary arteries. Normal visualized aortic arch and descending thoracic aorta. Normal visualized thoracic spine. Normal visualized ribs, clavicles, and shoulders. There is no demonstrated abnormality of the visualized soft tissue structures of the upper abdomen. RAD/Chest 1 View (Portable) IMPRESSION: Normal x-ray examination of the chest. Electronically Signed: Malvin Hutchinson, at 11:21 EST , Service support ,
[2020-09-11 11:04] VITALS: BP 104/74; BP 115/86; BP 116/82; PULSE 69; PULSE 77; PULSE 80
[2020-09-11 12:50] VITALS: BP 111/79; PULSE 85; RESP 17; O2SAT 100
--- NOTE | 2020-09-11 13:44 | ED.DEP ---
ED Disposition - Plan for ED Patient: Instructions: ED Chest Pain, Uncertain Cause Referrals: Brandon Cullen MD [Primary Care Provider] - 3-5 Days Additional Instructions: keep your appointment for stress test and tilt table test
[2020-09-11 13:53] VITALS: BP 104/71; PULSE 65; RESP 22; O2SAT 98
== END 2020-09-11 13:54 | disposition home or self-care (01) ==
LOC: ED 10:57
PROVIDERS: Emergency Provider Emergency Medicine; PCP Family Medicine
DX: R07.9 Chest pain, unspecified (principal); Z72.0 Tobacco use
CPT/HCPCS: 71045; 80048; 84484; 85025; 85379; 93005; 96360; 96361; 99285; J7030; A4216

== ENCOUNTER → 2020-09-22 07:37 | Outpatient (CLI) | payer MEDICAID, SELFPAY ==
[2020-09-10 11:15] VITALS: BMI 25.5
[2020-09-11 10:15] VITALS: BMI 25.5
[2020-09-22 08:46] LABS: Hematocrit 41.7 % (40-54); Hemoglobin 14.1 g/dL (13.0-16.5); Mean Corp Hgb Conc 33.8 g/dL (32-36); Mean Corpuscular Hgb 30.3 pg (27.0-32.0); Mean Corpuscular Volume 89.7 fL (80-94); Mean Platelet Vol. 9.8 fl (6.2-12.0); Platelet Count 251 K/mm3 (150-450); RBC Distribution Width CV 12.4 % (11.6-14.6); RBC Distribution Width SD 40.8 fl (35.1-43.9); Red Blood Count 4.65 M/mm3 (4.6-6.2)
[2020-09-22 09:03] LABS: Anion Gap 4 (5-15); BUN 12 mg/dL (7-18); Calcium,Total 8.6 mg/dL (8.5-10.1); Chloride 108 mmol/L (98-107); Creatinine, Serum 1.09 mg/dL (0.70-1.30); EST Glomerular Filtration Rate 81 mL/min (>60); Est Glom Filt Rate - Afr Amer 98 mL/min (>60); Glucose 92 mg/dL (74-106); Potassium 3.6 mmol/L (3.5-5.1); Sodium Level 139 mmol/L (136-145)
--- NOTE | 2020-09-22 15:21 | STRESSREP ---
Stress Test Report Date: 09-22-2020 Procedure: Exercise tolerance test Indications: Pain; palpitations; syncope Consent: Per the patient Procedure: The patient exercised on a Avila protocol for 8 minutes and 30 seconds completing Stage II and 2 minutes and 30 seconds of Stage III achieving a peak heart rate of 164 bpm (89% predicted maximal heart rate) with a peak blood pressure 120/64 mmHg and a peak MET capacity of approximately 9 MET's. The baseline ECG demonstrated sinus rhythm. The peak exercise ECG demonstrated no obvious ECG changes. There were no cardiac dysrhythmias pretest, during exercise, or recovery. The functional capacity was considered good. The patient had no complaint of chest discomfort during exercise or recovery. The examination was discontinued secondary to dyspnea and leg discomfort. Impression: 1. Technically adequate (percent predicted maximal heart rate greater than 85%) exercise tolerance test 2. Peak exercise ECG with no obvious ECG changes 3. There were no cardiac dysrhythmias during exercise or recovery This note was generated with [employer] software. It may contain incorrect words, spelling, and punctuation that were not noted in checking the note before signing.
--- NOTE | 2020-09-22 18:11 | TILTTABLE_ITS ---
- Staff Staff: Genoveva Jacques, - - Summary Pre Test Resting HR: 59 - Alert and oriented: Warm and dry Pre Test Resting BP: 100/60 - Alert and oriented: Warm and dry Minimum Test HR: 60 - Alert and oriented: Warm and dry Maximum Test HR: 90 - Alert and oriented: Warm and dry Minimum Test BP: 90/62 - Alert and oriented: Warm and dry Maximum Test BP: 108/70 - Alert and oriented: Warm and dry Reason for Test Termination: Reached Maximum Test Time Physician Tilt Table Report - Patient's Physicians Primary Care Physician: Brandon Cullen Senior Security Engineer: Rex Barrera Indications/Diagnosis: Syncope Procedure Comments: The patient was brought to the tilt table laboratory and laid supine on the tilt table. He was awake and alert and oriented and warm and dry. The baseline heart rate was 59 bpm with a baseline blood pressure 100/60 mmHg. The cardiac rhythm was sinus rhythm. The patient was placed in the 70 degree upright tilt table position for approximately 30 minutes. The patient remained alert and oriented and warm and dry. The patient had a minimal heart rate of 60 bpm at initiation of the study with a minimal blood pressure of 90/62 mmHg and a maximal heart rate of 90 bpm near the conclusion of the study with a maximal blood pressure of 108/70 mmHg. The cardiac rhythm remained sinus rhythm. The patient did not lose consciousness. The patient was returned to the supine position where he was monitored. He remained alert and oriented and warm and dry. His concluding heart rate was 52 bpm with a concluding blood pressure of 92/68 mmHg. His cardiac rhythm remained sinus rhythm. Summary: 70 degree upright tilt table study considered negative for reproducible vasovagal/neurocardiogenic mediated near syncope/syncope. This note was generated using a voice recognition system and there may be incorrect words, spelling or punctuation that were not noted when reviewing the office note prior to saving.
[2020-09-22 18:17] VITALS: BP 100/60; BP 108/70; BP 90/62
== END ==
PROVIDERS: PCP Family Medicine; Referring Provider Internal Medicine Cardiovascular Disease; Visit Provider Internal Medicine Cardiovascular Disease
DX: R55 Syncope and collapse (principal); R00.2 Palpitations; R07.9 Chest pain, unspecified
CPT/HCPCS: 36415; 80048; 85027; 93017; 93660; J7040; A4216

== ENCOUNTER 2021-01-12 12:12 | Emergency (ER) | payer MEDICAID, SELFPAY ==
[2021-01-07 15:21] VITALS: BMI 25.5
[2021-01-12 12:13] VITALS: BP 120/80; PULSE 108; RESP 16; TEMP 36.2; O2SAT 97; BMI 26.7
--- NOTE | 2021-01-12 12:35 | EKG12_ITS ---
Test Reason : Blood Pressure : / mmHG Vent. Rate : 079 BPM Atrial Rate : 079 BPM P-R Int : 136 ms QRS Dur : 096 ms QT Int : 370 ms P-R-T Axes : 052 042 041 degrees QTc Int : 424 ms Normal sinus rhythm Normal ECG Confirmed by ZAINA CARUSO, DELORES ([id number]), electronic news gathering editor NIK BARCENAS ([id number]) on 01/14/2021 1:55:12 PM Referred By: JENNY Confirmed By:DELORES MAHAJAN MD
--- NOTE | 2021-01-12 12:35 | RAD_ITS ---
STUDY: X-RAY CHEST REASON FOR EXAM: Male, 35 years old. Chest pain TECHNIQUE: Single AP portable view of the chest. COMPARISON: Comparison is made with prior study dated 09/11/2020. FINDINGS: EKG electrodes are seen. Hyperinflation. The lungs are clear. There is no demonstrated pleural abnormality. Normal size heart. Normal mediastinum and mey. Normal visualized pulmonary arteries. Normal visualized aortic arch and descending thoracic aorta. Normal visualized thoracic spine. Normal visualized ribs, clavicles, and shoulders. There is no demonstrated abnormality of the visualized soft tissue structures of the upper abdomen. RAD/Chest 1 View (Portable) IMPRESSION: Hyperinflation. The lungs are clear. Electronically Signed: Malvin Hutchinson MD at 13:39 EDT , Service support ,
--- NOTE | 2021-01-12 12:36 | EDS_ITS ---
HPI History of Present Illness Chief Complaint: Allergic Reaction Informant: patient Narrative Narrative: 35-year-old male states that he started famotidine last night for the treatment of GERD. He tells me that this morning he feels more bloated than he did before. He states he feels fatigued particularly of his left hand. He denies any chest pain. He states that he saw cardiology recently who started him on this as he had had a syncopal episode in August with palpitations.Patient denies any excessive belching or gas.He points to his left upper quadrant of his abdomen and under the ribs as the source of discomfort. PFSH PFSH Medical History Anxiety and depression Chronic diarrhea No significant past medical history Palpitations Sepsis Streptococcal pharyngitis Syncope and collapse Tobacco use Home Medications famotidine 40 mg tablet 40 mg PO DAILY #30 tab 01/07/21 [Rx Last Taken Unknown] Allergy/AdvReac Type Severity Reaction Status Date / Time fluoxetine HCl [From Prozac] AdvReac Other Verified 01/12/21 12:16 sertraline [From Zoloft] AdvReac Other Verified 01/12/21 12:16 Family History Other Heart disease Social History Smoking Status: Current every day smoker alcohol intake: never substance use type: does not use caffeine: Yes Type: other Number of servings: 2 ROS ROS ED Constitutional Constitutional ED: Reports other Details: Fatigue ; Denies chills or weight loss Eyes Eyes: Denies change in vision or diplopia ENT ENT ED: Denies ear pain, rhinorrhea or sore throat Cardiovascular Cardiovascular: Denies chest pain, orthopnea, palpitations or racing heartbeat Respiratory/Chest Respiratory/Chest: Denies cough, dyspnea or orthopnea Gastrointestinal Gastrointestinal: Reports other Details: Abdominal bloating ; Denies abdominal pain, diarrhea, nausea or vomiting Genitourinary Genitourinary ED: Denies dysuria, hematuria or urinary frequency Musculoskeletal Musculoskeletal: Denies arthralgias or myalgias Integumentary Denies abscess or rash Neurologic Neurologic: Denies headache(s) or weakness Psychiatric Psychiatric: Denies anxiety, depression, suicidal ideation or suicidal thoughts Endocrine Endocrinology: Denies polydipsia, polyphagia or polyuria Allergic/Immunologic Allergic/Immunologic ED: Denies mouth swelling, tongue swelling or urticaria EXAM Physical Exam Const Vital Signs: 01/12/21 12:13 Temperature 97.2 F L Temperature Source Temporal Pulse Rate 108 H Respiratory Rate 16 Blood Pressure 120/80 Blood Pressure Mean 93 Pulse Ox 97 Oxygen Delivery Method Room Air Positive well nourished and well developed General Appearance ED: well developed HEENT Reports normocephalic, head/scalp atraumatic and moist mucous membranes Eyes PERRL and EOMs intact bilaterally Neck no lymphadenopathy, supple and no JVD Resp normal respiratory effort and clear to auscultation bilaterally Cardio regular rate, regular rhythm and no murmurs GI normal to inspection, nondistended, normoactive bowel sounds and non-tender Palpation: soft Back/Spine no CVA tenderness and normal ROM Extremity normal to inspection General Extremety ED: Negative for edema General Extremity: Negative for edema Neuro oriented x3 and CN's II-XII intact bilaterally Sensorium / Orientation: alert Motor Exam: strength 5/5 throughout Psych mental status grossly normal Mood & Affect: Negative for depressed or tearful Skin no rashes or lesions noted and no wounds MDM MDM MDM Narrative Medical decision making narrative: Patient's blood work is negative. EKG is a normal sinus rhythm My interpretation of the chest x-ray shows no hiatal hernia. I cannot say that I feel strongly that the famotidine is causing this. Patient is hemodynamically stable and otherwise appears well I think he be safely discharged home. Follow-up with primary care Lab Data Attestation: I reviewed the patient's lab results. Labs: Laboratory Results - last 24 hr 01/12/21 01/12/21 13:05 13:05 WBC 6.2 RBC 4.78 Hgb 14.5 Hct 43.2 MCV 90.4 MCH 30.3 MCHC 33.6 RDW Std Deviation 40.7 RDW Coeff of Ara 12.3 Plt Count 241 MPV 9.4 Immature Gran % (Auto) 0.500 Neut % (Auto) 64.0 Lymph % (Auto) 25.2 [place] % (Auto) 8.4 Eos % (Auto) 0.8 Baso % (Auto) 1.1 H Absolute Neuts (auto) 4.0 Absolute Lymphs (auto) 1.57 Nucleated RBC % 0 Sodium 137 Potassium 4.2 Chloride 106 Carbon Dioxide 28.0 Anion Gap 3 L BUN 9 Creatinine 1.18 Estim Creat Clear Calc 91.29 Est GFR (MDRD) Af Amer 89 Est GFR (MDRD) Non-Af 74 BUN/Creatinine Ratio 7.6 L Glucose 89 Calcium 9.0 Total Bilirubin 0.60 AST 19 ALT 28 Alkaline Phosphatase 61 Troponin I < 0.015 Total Protein 7.6 Albumin 3.9 Globulin 3.7 Albumin/Globulin Ratio 1.1 Lipase 58 L Radiography Diagnostic Testing: Radiology Impression Chest X-Ray 01/12/21 12:35 IMPRESSION: Hyperinflation. The lungs are clear. Electronically Signed: Malvin Hutchinson MD at 13:39 EDT , Service support , Discharge Plan Triage Chief Complaint: Allergic Reaction ED Provider: Chris Martinez Dx/Rx/DC Orders Clinical Impression: Abdominal discomfort Instructions: DRUG REACTION, GI Intolerance Prescriptions: No Action famotidine 40 mg tablet 40 mg PO DAILY Qty: 30 RF: 11 Primary Care Provider: Brandon Cullen Referrals: Brandon Cullen MD [Primary Care Provider] - 1 Week Disposition Disposition: Home, self care
[2021-01-12 13:15] LABS: Absolute Lymphocyte Count 1.57 X10^3/uL (0.83-4.51); Basophil# 0.07 X10^3/uL; Basophil% 1.1 % (0-1); Eosinophil# 0.05 X10^3/uL; Eosinophils% 0.8 % (0-5); Hematocrit 43.2 % (40-54); Hemoglobin 14.5 g/dL (13.0-16.5); Lymphocyte # 1.57 X10^3/ul (0.83-4.51); Lymphocyte % 25.2 % (19-41); Mean Corp Hgb Conc 33.6 g/dL (32-36); Mean Corpuscular Hgb 30.3 pg (27.0-32.0); Mean Corpuscular Volume 90.4 fL (80-94); Mean Platelet Vol. 9.4 fl (6.2-12.0); Monocyte# 0.52 X10^3/uL; Monocyte% 8.4 % (0-10); NRBC Flagged by Analyzer 0 % (0-5); Neutrophil # 3.98 X10^3/uL (2.7-7.7); Platelet Count 241 K/mm3 (150-450); RBC Distribution Width CV 12.3 % (11.6-14.6); RBC Distribution Width SD 40.7 fl (35.1-43.9); Red Blood Count 4.78 M/mm3 (4.6-6.2); White Blood Count 6.2 K/mm3 (4.4-11.0)
[2021-01-12 13:33] LABS: ALB/GLOB Ratio 1.1 RATIO (0.9-2.4); AST(SGOT) 19 U/L (15-37); Alanine Aminotransfer ALT/SGPT 28 U/L (16-61); Albumin, Serum 3.9 g/dL (3.2-5.0); Alkaline Phosphatase 61 U/L (45-117); Anion Gap 3 (5-15); BUN 9 mg/dL (7-18); BUN/Creat Ratio 7.6 RATIO (10-20); Chloride 106 mmol/L (98-107); Creatinine, Serum 1.18 mg/dL (0.70-1.30); EST Glomerular Filtration Rate 74 mL/min (>60); Est Glom Filt Rate - Afr Amer 89 mL/min (>60); Estimated Creatinine Clearance 91.29 ml/min; Globulin 3.7 g/dL (2.2-4.2); Glucose 89 mg/dL (74-106); Lipase 58 U/L (73-393); Potassium 4.2 mmol/L (3.5-5.1); Protein, Total 7.6 g/dL (6.4-8.2); Sodium Level 137 mmol/L (136-145)
[2021-01-12 14:21] VITALS: BP 108/77; PULSE 68; RESP 20; O2SAT 99
== END 2021-01-12 14:22 | disposition home or self-care (01) ==
PROVIDERS: Emergency Provider Emergency Medicine; PCP Family Medicine
DX: R10.12 Left upper quadrant pain (principal); K21.9 Gastro-esophageal reflux disease without esophagitis; F17.200 Nicotine dependence, unspecified, uncomplicated
CPT/HCPCS: 71045; 80053; 83690; 84484; 85025; 93005; 99284; A4216

== ENCOUNTER 2021-02-22 10:07 | Emergency (ER) | payer MEDICAID, SELFPAY ==
[2021-02-22 10:07] VITALS: BP 136/83; PULSE 89; RESP 16; TEMP 36.7; O2SAT 97; BMI 25.9
--- NOTE | 2021-02-22 10:11 | EKG12_ITS ---
Test Reason : CP Blood Pressure : / mmHG Vent. Rate : 085 BPM Atrial Rate : 085 BPM P-R Int : 134 ms QRS Dur : 096 ms QT Int : 362 ms P-R-T Axes : 069 064 068 degrees QTc Int : 430 ms Normal sinus rhythm Normal ECG Confirmed by ZAINA CARUSO, DELORES ([id number]), material expeditor NIK BARCENAS ([id number]) on 02/24/2021 9:25:15 AM Referred By: Confirmed By:DELORES MAHAJAN MD
[2021-02-22] MEDS: 0.9% Normal Saline 1,000 ML 1000 ML IV (10:23)
[2021-02-22 10:24] VITALS: BP 126/88; BP 130/91; PULSE 102; PULSE 90
[2021-02-22 10:24] LABS: Absolute Lymphocyte Count 1.94 X10^3/uL (0.83-4.51); Absolute Neutrophil Count 3.8 X10^3/uL (2.0-7.7); Basophil# 0.07 X10^3/uL; Basophil% 1.1 % (0-1); Eosinophil# 0.11 X10^3/uL; Eosinophils% 1.7 % (0-5); Hematocrit 44.5 % (40-54); Hemoglobin 14.9 g/dL (13.0-16.5); Lymphocyte # 1.94 X10^3/ul (0.83-4.51); Lymphocyte % 29.1 % (19-41); Mean Corp Hgb Conc 33.5 g/dL (32-36); Mean Corpuscular Hgb 30.5 pg (27.0-32.0); Mean Platelet Vol. 9.6 fl (6.2-12.0); Monocyte# 0.68 X10^3/uL; Monocyte% 10.2 % (0-10); NRBC Flagged by Analyzer 0 % (0-5); Neutrophil # 3.83 X10^3/uL (2.7-7.7); Neutrophil % 57.4 % (47-70); Platelet Count 256 K/mm3 (150-450); RBC Distribution Width CV 12.4 % (11.6-14.6); Red Blood Count 4.89 M/mm3 (4.6-6.2); White Blood Count 6.7 K/mm3 (4.4-11.0)
--- NOTE | 2021-02-22 10:26 | EDS_ITS ---
HPI History of Present Illness Chief Complaint: Chest Pain Detail of Chief Complaint: Chest pain and not feeling well Informant: patient Onset/Context/Timing Onset: Today (Chest pain occurred today and lasted seconds) and Days (Patient has not felt well and worn out for the past 5 days) Context: Sudden Onset Timing: Intermittent (Dozier/sec.) Quality: Slight electrical shock Location: Over the left fifth rib Current Severity: Gone Maximum Severity: Moderate Worsened by: Nothing Relieved by: Nothing Associated Symptoms Associated Symptoms: No radiation and no associated symptoms Narrative Narrative: Patient is a 35-year-old male who admits to smoking 1 pack/day who presents because of left-sided chest pain that was described as an electrical sh ock that lasted for seconds. He was at rest when this occurred. He also feels generalized weakness and malaise for the past 5 days. He has been working outside. He states he has been drinking enough fluids. He states he is urinating. He does complain of thirst and dry mouth. He denies orthostatic symptoms. He denies fever, chills night sweats. He denies headache, visual, ocular auditory symptoms. Denies trouble with speech or swallowing. Denies sore throat. He presently denies chest pain. He denies shortness of breath. He denies vomiting or diarrhea. He denies urologic symptoms. He denies motor weakness, loss of sensation or altered sensation of his extremities. He denies problems with his balance. Prior similar symptoms: No Recent Illness/Hospitalization: No PFSH PFSH Medical History Anxiety and depression Asthma Chronic diarrhea No significant past medical history Palpitations Sepsis Streptococcal pharyngitis Syncope and collapse Tobacco use Home Medications albuterol sulfate 2 puff INHALATION Q4H PRN PRN 02/22/21 [History Last Taken Unknown] Allergy/AdvReac Type Severity Reaction Status Date / Time fluoxetine HCl [From Prozac] AdvReac Other Verified 02/22/21 10:10 sertraline [From Zoloft] AdvReac Other Verified 02/22/21 10:10 Family History Other Heart disease Social History (Updated 02/22/21 @ 10:[address] Papi Ashraf MD) household members: none Smoking Status: Current every day smoker tobacco type: pipe alcohol intake: never substance use type: does not use caffeine: Yes Type: other Number of servings: 2 ROS ROS ED Constitutional Constitutional ED: Denies chills, fever(s), subjective or sweats Eyes Eyes: Reports blurry vision; Denies change in vision or diplopia ENT ENT ED: Denies ear pain, rhinorrhea or sore throat Cardiovascular Cardiovascular: Reports chest pain and palpitations; Denies orthopnea or racing heartbeat Respiratory/Chest Respiratory/Chest: Denies cough, dyspnea, dyspnea on exertion or orthopnea Gastrointestinal Gastrointestinal: Denies abdominal pain, constipation, diarrhea, nausea or vomiting Genitourinary Genitourinary ED: Denies dysuria, hematuria or urinary frequency Musculoskeletal Musculoskeletal: Denies arthralgias, back pain, myalgias or neck pain Integumentary Denies rash Neurologic Neurologic: Reports weakness; Denies headache(s) Psychiatric Psychiatric: Reports depression Endocrine Endocrinology: Denies polydipsia, polyphagia or polyuria EXAM Physical Exam Const Vital Signs: 02/22/21 10:07 02/22/21 10:11 02/22/21 10:24 Temperature 98.1 F Temperature Source Oral Pulse Rate 89 Pulse Rate [Sitting] 90 Pulse Rate [Standing] 102 H Respiratory Rate 16 Respiratory Effort Normal Respiratory Pattern Normal Blood Pressure 136/83 H Blood Pressure [Sitting] 126/88 H Blood Pressure [Standing] 130/91 H Blood Pressure Mean 100 Blood Pressure Mean [Sitting] 100 Blood Pressure Mean [Standing] 104 Pulse Ox 97 Oxygen Delivery Method Room Air Oxygen Flow Rate (L/min) 02/22/21 11:48 02/22/21 12:30 Temperature Temperature Source Pulse Rate 97 84 Pulse Rate [Sitting] Pulse Rate [Standing] Respiratory Rate 18 16 Respiratory Effort Respiratory Pattern Blood Pressure 93/64 120/84 H Blood Pressure [Sitting] Blood Pressure [Standing] Blood Pressure Mean 73 96 Blood Pressure Mean [Sitting] Blood Pressure Mean [Standing] Pulse Ox 96 99 Oxygen Delivery Method Nasal Cannula Room Air Oxygen Flow Rate (L/min) 5 Positive well nourished and well developed General Appearance ED: well developed and NAD; Negative for cyanotic or diaphoretic HEENT Reports TM's clear and dry mucous membranes HEENT Narrative: Nares patent. Posterior pharynx unremarkable. Uvula is midline. Tympanic Membrane ED: Yes TM's clear Mouth ED: Yes dry mucous membranes Mouth: dry mucous membranes Eyes PERRL and EOMs intact bilaterally General Eye ED: Negative for pale conjunctiva or scleral icterus Neck no lymphadenopathy, supple and no JVD Chest Wall inspection of chest normal and palpation of chest normal Resp normal respiratory effort and clear to auscultation bilaterally Cardio regular rate, regular rhythm, S1 normal heart sound, S2 normal heart sound and no murmurs GI normal to inspection, nondistended, normoactive bowel sounds and non-tender Palpation: soft Back/Spine no CVA tenderness Cervical Spine: Negative for cervical spine tenderness Thoracic Spine / Upper Back: Negative for thoracic spinal tenderness or paraspinal muscle tenderness Extremity normal to inspection General Extremety ED: Yes tenderness Neuro oriented x3, CN's II-XII intact bilaterally and no sensory deficits noted Sensorium / Orientation: alert Motor Exam: strength 5/5 throughout Psych Mood & Affect: depressed Skin no rashes or lesions noted and no wounds MDM MDM MDM Narrative Medical decision making narrative: Clinically patient appears mildly dehydrated. His generalized weakness fatigue may be due to dehydration. 1 L of normal saline was ordered. EKG was obtained per nurse protocol and is normal. Patient was informed of his test results. He was diagnosed with heat exhaustion. He did feel better after 1 L of normal saline. Lab Data Attestation: I reviewed the patient's lab results. Lab results narrative: CBC is unremarkable. Basic metabolic panel reveals a potassium of 3.2. Patient urine appeared concentrated. Labs: Laboratory Results - last 24 hr 02/22/21 02/22/21 10:10 10:10 WBC 6.7 RBC 4.89 Hgb 14.9 Hct 44.5 MCV 91.0 MCH 30.5 MCHC 33.5 RDW Std Deviation 41.0 RDW Coeff of Ara 12.4 Plt Count 256 MPV 9.6 Immature Gran % (Auto) 0.500 Neut % (Auto) 57.4 Lymph % (Auto) 29.1 [place] % (Auto) 10.2 H Eos % (Auto) 1.7 Baso % (Auto) 1.1 H Absolute Neuts (auto) 3.8 Absolute Lymphs (auto) 1.94 Nucleated RBC % 0 Sodium 141 Potassium 3.2 L Chloride 104 Carbon Dioxide 28.0 Anion Gap 9 BUN 11 Creatinine 1.27 Estim Creat Clear Calc 84.82 Est GFR (MDRD) Af Amer 82 Est GFR (MDRD) Non-Af 68 BUN/Creatinine Ratio 8.7 L Glucose 112 H Calcium 9.3 EKG Initial EKG: Attestation: I personally reviewed and interpreted this EKG as follows: Interpretation: Sinus Rhythm (Normal sinus rhythm with ventricular rate 85. UT interval is 134 ms. Cures duration 96 ms. QT interval 362 ms. [place] is normal. The EKG is normal.) Discharge Plan Triage Chief Complaint: Chest Pain ED Provider: Papi Ashraf Dx/Rx/DC Orders Clinical Impression: Heat exhaustion due to water depletion, Acute left-sided thoracic back pain Instructions: ED Chest Pain, Noncardiac, ED Heat Exhaustion Prescriptions: No Action albuterol sulfate 90 mcg/actuation HFA aerosol inhaler 2 puff INHALATION Q4H PRN PRN (Reason: Shortness Of Breath) RF: 0 Primary Care Provider: Brandon Cullen Referrals: Brandon Cullen MD [Primary Care Provider] - 3-5 Days if not improving Disposition Disposition: Home, self care
[2021-02-22 10:40] LABS: Anion Gap 9 (5-15); BUN 11 mg/dL (7-18); BUN/Creat Ratio 8.7 RATIO (10-20); Calcium,Total 9.3 mg/dL (8.5-10.1); Chloride 104 mmol/L (98-107); Creatinine, Serum 1.27 mg/dL (0.70-1.30); EST Glomerular Filtration Rate 68 mL/min (>60); Est Glom Filt Rate - Afr Amer 82 mL/min (>60); Estimated Creatinine Clearance 84.82 ml/min; Glucose 112 mg/dL (74-106); Potassium 3.2 mmol/L (3.5-5.1); Sodium Level 141 mmol/L (136-145)
[2021-02-22 11:48] VITALS: BP 93/64; PULSE 97; RESP 18; O2SAT 96
[2021-02-22 12:30] VITALS: BP 120/84; PULSE 84; RESP 16; O2SAT 99
[2021-02-22 14:00] VITALS: BP 105/69; PULSE 72; RESP 16; O2SAT 98
== END 2021-02-22 14:04 | disposition home or self-care (01) ==
PROVIDERS: Emergency Provider Emergency Medicine; PCP Family Medicine
DX: T67.3XXA Heat exhaustion, anhydrotic, initial encounter (principal); M54.6 Pain in thoracic spine; F17.210 Nicotine dependence, cigarettes, uncomplicated; J45.909 Unspecified asthma, uncomplicated; Z79.899 Other long term (current) drug therapy
CPT/HCPCS: 80048; 85025; 93005; 99285; J7030; A4216

== ENCOUNTER 2021-02-25 11:21 | Emergency (ER) | payer MEDICAID, SELFPAY ==
[2021-02-25 11:21] VITALS: BP 125/71; PULSE 110; RESP 15; TEMP 36.3; O2SAT 98; BMI 25.5
--- NOTE | 2021-02-25 12:03 | RAD_ITS ---
STUDY: X-RAY CHEST REASON FOR EXAM: Male, 35 years old. chest pain TECHNIQUE: 2 views COMPARISON: 01/12/2021 FINDINGS: The lungs are clear and expanded. There is no demonstrated pleural abnormality. Normal size heart. Normal mediastinum and mey. Normal visualized pulmonary arteries. Normal visualized aortic arch and descending thoracic aorta. Normal visualized thoracic spine. Normal visualized ribs, clavicles, and shoulders. There is no demonstrated abnormality of the visualized soft tissue structures of the upper abdomen. RAD/Chest 1 View (Portable) IMPRESSION: Normal x-ray examination of the chest unchanged since January 2021.. Electronically Signed: Darcy Fitzgerald, at 12:47 EDT Tel , Service support ,
--- NOTE | 2021-02-25 12:03 | EKG12_ITS ---
Test Reason : CP Blood Pressure : / mmHG Vent. Rate : 104 BPM Atrial Rate : 104 BPM P-R Int : 120 ms QRS Dur : 100 ms QT Int : 328 ms P-R-T Axes : 062 046 059 degrees QTc Int : 431 ms Sinus tachycardia Otherwise normal ECG Confirmed by LYNDSAY CARUSO, REMA ([id number]), videotape editor NIK BARCENAS ([id number]) on 02/26/2021 1:02:52 PM Referred By: TOMASA Confirmed By:REMA UMANA MD
[2021-02-25 12:16] LABS: Absolute Neutrophil Count 6.6 X10^3/uL (2.0-7.7); Basophil# 0.08 X10^3/uL; Basophil% 0.9 % (0-1); Eosinophil# 0.03 X10^3/uL; Eosinophils% 0.3 % (0-5); Hematocrit 41.6 % (40-54); Hemoglobin 14.1 g/dL (13.0-16.5); Lymphocyte % 17.7 % (19-41); Mean Corp Hgb Conc 33.9 g/dL (32-36); Mean Corpuscular Hgb 30.3 pg (27.0-32.0); Mean Corpuscular Volume 89.3 fL (80-94); Mean Platelet Vol. 9.9 fl (6.2-12.0); Monocyte# 0.69 X10^3/uL; Monocyte% 7.6 % (0-10); NRBC Flagged by Analyzer 0 % (0-5); Neutrophil # 6.59 X10^3/uL (2.7-7.7); Neutrophil % 72.9 % (47-70); Platelet Count 258 K/mm3 (150-450); RBC Distribution Width CV 12.4 % (11.6-14.6); RBC Distribution Width SD 40.8 fl (35.1-43.9); Red Blood Count 4.66 M/mm3 (4.6-6.2)
[2021-02-25 12:25] VITALS: PULSE 70; RESP 20; O2SAT 96; O2SAT 98
[2021-02-25] MEDS: Aspirin 81 MG TAB.CHEW 324 MG PO (12:29)
[2021-02-25 12:30] VITALS: BP 101/69
--- NOTE | 2021-02-25 12:33 | EDS_ITS ---
HPI History of Present Illness Chief Complaint: Chest Pain Informant: patient Narrative Narrative: Patient is a 35-year-old male who presents to the emergency department for left-sided chest pain. He states he had some paresthesias going down his left arm. Today his arm turned a purplish discoloration. The whole episode lasted 2 hours. This is his third emergency department visit for similar complaints. He is seen at outside hospital and then at this emergency department for this issue. His symptoms have been going on over the past 8 days. He is never had it before in the past. He is denying any symptoms currently. He denies a headache or neck pain. No weakness or loss of sensation in any other extremity. He denies any heart palpitations currently. No recent illness including any fever/chills. Patient denies any history of DVT/PE, SD. PFSH PFSH Medical History Anxiety and depression Asthma Chronic diarrhea No significant past medical history Palpitations Sepsis Streptococcal pharyngitis Syncope and collapse Tobacco use Home Medications albuterol sulfate 2 puff INHALATION Q4H PRN PRN 02/22/21 [History Last Taken Unknown] Allergy/AdvReac Type Severity Reaction Status Date / Time fluoxetine HCl [From Prozac] AdvReac Other Verified 02/25/21 11:23 sertraline [From Zoloft] AdvReac Other Verified 02/25/21 11:23 Family History Other Heart disease Social History household members: none Smoking Status: Current every day smoker tobacco type: pipe alcohol intake: never substance use type: does not use caffeine: Yes Type: other Number of servings: 2 ROS ROS ED Constitutional Constitutional ED: Denies chills or fever(s) Eyes Eyes: Denies change in vision ENT ENT ED: Denies epistaxis or rhinorrhea Cardiovascular Cardiovascular: Reports chest pain; Denies palpitations Respiratory/Chest Respiratory/Chest: Denies cough, dyspnea or dyspnea on exertion Gastrointestinal Gastrointestinal: Denies abdominal pain, diarrhea, nausea or vomiting Genitourinary Genitourinary ED: Denies dysuria, hematuria or urinary frequency Musculoskeletal Musculoskeletal: Denies back pain or neck pain Integumentary Denies rash Neurologic Neurologic: Reports tingling; Denies dizziness, headache(s) or weakness EXAM Physical Exam Const Vital Signs: 02/25/21 11:21 02/25/21 11:29 02/25/21 12:25 Temperature 97.3 F L Temperature Source Temporal Pulse Rate 110 H 70 Respiratory Rate 15 20 H Respiratory Effort Short of Breath Respiratory Pattern Normal Blood Pressure 125/71 H Blood Pressure Mean 89 Pulse Ox 98 96 Oxygen Delivery Method Room Air Room Air 02/25/21 12:30 02/25/21 13:05 02/25/21 14:06 Temperature Temperature Source Pulse Rate 62 70 Respiratory Rate 17 15 Respiratory Effort Respiratory Pattern Blood Pressure 101/69 102/77 102/78 Blood Pressure Mean 79 85 Pulse Ox 96 99 Oxygen Delivery Method Room Air Positive well nourished and well developed General Appearance ED: well developed and NAD HEENT Reports normocephalic, head/scalp atraumatic and moist mucous membranes Eyes PERRL and EOMs intact bilaterally Neck supple General: Negative for tenderness Chest Wall inspection of chest normal Resp normal respiratory effort and clear to auscultation bilaterally Auscultation: Negative for rales, rhonchi or wheezes Cardio regular rate, regular rhythm and no murmurs GI normal to inspection, nondistended, normoactive bowel sounds and non-tender Palpation: soft; Negative for guarding or rebound tenderness present Back/Spine no CVA tenderness Extremity normal to inspection Extremity Narrative: 2+ radial pulse of the left side, good secondary special education teacher strength. 5 out of 5 muscle strength throughout. Neurovascularly intact. General Extremety ED: Negative for edema or tenderness General Extremity: Negative for edema Neuro oriented x3, CN's II-XII intact bilaterally and no sensory deficits noted Sensorium / Orientation: alert Motor Exam: strength 5/5 throughout Psych mental status grossly normal Skin no rashes or lesions noted MDM MDM MDM Narrative Medical decision making narrative: Patient presents to the emergency department for tingling going down his left arm. He states that a bluish discoloration. He has been having some left-sided chest pain. Patient has been seen twice already for this issue over the past 8 days. On arrival to the emergency department he is mildly tachycardic. He otherwise has a benign exam. He is neurovascularly intact. I have very low concern for stroke causing the paresthesia with the discoloration. Low concern for thromboembolism as he has good capillary refill and strong peripheral pulse. Patient could have a thoracic outlet syndrome although is not showing any signs of obvious impingement currently. Will check basic lab work along with chest x-ray and EKG. Patient's work-up did not reveal any significant acute abnormality. He does not have a high white blood cell count. Troponin within normal limits. He is a low heart score. This time I recommend he follow-up with his PCP. Given referral for 1. He may benefit from physical therapy. If he develops any worsening symptoms he is to return to the emergency department. He has been asymptomatic throughout ED stay. Will discharge home in stable condition. All questions were answered. Lab Data Labs: Laboratory Results - last 24 hr 02/25/21 02/25/21 11:32 11:32 WBC 9.0 RBC 4.66 Hgb 14.1 Hct 41.6 MCV 89.3 MCH 30.3 MCHC 33.9 RDW Std Deviation 40.8 RDW Coeff of Ara 12.4 Plt Count 258 MPV 9.9 Immature Gran % (Auto) 0.600 Neut % (Auto) 72.9 H Lymph % (Auto) 17.7 L [place] % (Auto) 7.6 Eos % (Auto) 0.3 Baso % (Auto) 0.9 Absolute Neuts (auto) 6.6 Absolute Lymphs (auto) 1.60 Nucleated RBC % 0 Sodium 141 Potassium 3.4 L Chloride 106 Carbon Dioxide 28.0 Anion Gap 7 BUN 7 Creatinine 1.09 Estim Creat Clear Calc 98.83 Est GFR (MDRD) Af Amer 98 Est GFR (MDRD) Non-Af 81 BUN/Creatinine Ratio 6.4 L Glucose 76 Calcium 8.9 Troponin I High Sens 7.2 Radiography Chest X-Ray - ED: 1 View (Clear lung castro bilaterally. Normal mediastinum. Normal cardiac silhouette. No acute cardiopulmonary abnormality. Agree with radiologist interpretation.) Diagnostic Testing: Radiology Impression Chest X-Ray 02/25/21 12:03 IMPRESSION: Normal x-ray examination of the chest unchanged since January 2021.. Electronically Signed: Darcy Fitzgerald, at 12:47 EDT Tel , Service support , EKG Initial EKG: Attestation: I personally reviewed and interpreted this EKG as follows: (Rate of 104 bpm in sinus tachycardia. Normal intervals. Normal axis. No significant ST elevations or depressions. No T wave abnormalities.) Discharge Plan Triage Chief Complaint: Chest Pain Other Complaint: Cellulitis ED Provider: Toby Lewis Dx/Rx/DC Orders Clinical Impression: Paresthesia of arm Instructions: ED Paraesthesias Prescriptions: No Action albuterol sulfate 90 mcg/actuation HFA aerosol inhaler 2 puff INHALATION Q4H PRN PRN (Reason: Shortness Of Breath) RF: 0 Primary Care Provider: Care Physician,No Primary Referrals: Kate Wilkerson MD [STAFF PHYSICIAN] - 3-5 Days Care Physician,No Primary [Primary Care Provider] - Disposition Disposition: Home, Self Care Discharge Date/Time: 02/25/21 14:07
[2021-02-25 12:34] LABS: Anion Gap 7 (5-15); BUN 7 mg/dL (7-18); BUN/Creat Ratio 6.4 RATIO (10-20); Calcium,Total 8.9 mg/dL (8.5-10.1); Chloride 106 mmol/L (98-107); Creatinine, Serum 1.09 mg/dL (0.70-1.30); EST Glomerular Filtration Rate 81 mL/min (>60); Est Glom Filt Rate - Afr Amer 98 mL/min (>60); Estimated Creatinine Clearance 98.83 ml/min; Glucose 76 mg/dL (74-106); Potassium 3.4 mmol/L (3.5-5.1); Sodium Level 141 mmol/L (136-145); Troponin-I HS 7.2 pg/mL (3.0-78.5)
[2021-02-25 13:05] VITALS: BP 102/77; PULSE 62; RESP 17; O2SAT 96
[2021-02-25 14:06] VITALS: BP 102/78; PULSE 70; RESP 15; O2SAT 99
== END 2021-02-25 14:07 | disposition home or self-care (01) ==
PROVIDERS: Emergency Provider Emergency Medicine
DX: R20.2 Paresthesia of skin (principal); J45.909 Unspecified asthma, uncomplicated; F17.200 Nicotine dependence, unspecified, uncomplicated; Z79.899 Other long term (current) drug therapy
CPT/HCPCS: 71045; 80048; 84484; 85025; 93005; 99284; A4216

== ENCOUNTER → 2021-03-12 07:05 | Outpatient (CLI) | payer MEDICAID, SELFPAY ==
[2021-03-03 14:07] VITALS: BMI 25.2
--- NOTE | 2021-03-12 07:06 | CT_ITS ---
STUDY: CTA CHEST REASON FOR EXAM: Male, 35 years old. R/o PE; r/o thoracic aortic disease. Palpitations. RADIATION DOSAGE (If Supplied By Facility): CTDIvol = ( 17.21 ) mGy, DLP = ( 410.08 ) mGycm TECHNIQUE: The examination was performed with the intravenous administration of IV 100mL Isovue-370. Post-processing of the angiographic images was performed, with multiplanar reformation and 3D reconstruction. Individualized dose optimization techniques were used for this CT. COMPARISON: Comparison is made with prior chest radiograph dated 02/25/2021. FINDINGS: Normal enhancement of the main pulmonary artery and right and left pulmonary arteries. Normal enhancement of the bilateral peripheral pulmonary arteries. There is no demonstrated pulmonary embolism. Normal thoracic aorta and visualized great vessels. There is no demonstrated aortic dissection. Normal heart and pericardium. There are visualized mediastinal lymph nodes, which are within normal size limits, and with normal morphology. Normal hilar regions. Normal visualized trachea and bronchi. The lungs are well expanded. Normal pulmonary parenchyma. Normal pleura. Normal chest wall structures. Normal osseous structures. Fatty infiltration of the liver. CT/CTA Chest W/WO Contrast IMPRESSION: Normal CTA chest examination, without a demonstrated pulmonary embolism or arterial dissection. Electronically Signed: Malvin Hutchinson MD at 8:49 EDT , Service support ,
== END ==
PROVIDERS: PCP Family Medicine; Referring Provider Internal Medicine Cardiovascular Disease; Visit Provider Internal Medicine Cardiovascular Disease
DX: R07.2 Precordial pain (principal); R00.2 Palpitations; R55 Syncope and collapse
CPT/HCPCS: 71275; Q9967; A4216

== ENCOUNTER → 2021-03-16 06:08 | Outpatient (CLI) | payer MEDICAID, SELFPAY ==
[2021-03-03 14:07] VITALS: BMI 25.2
--- NOTE | 2021-03-16 13:19 | STRESSREP_ITS ---
Stress Test Report Date: 03-16-2021 Procedure: Exercise tolerance test/imaging study Indications: Chest pain; syncope Consent: Per the patient Procedure: The patient exercised on a Avila protocol for 8 minutes and 30 completing Stage II and 2 minutes and 30 seconds of Stage III achieving a peak heart rate of 164 bpm (89% predicted maximal heart rate) with a peak blood pressure 132/58 mmHg and a peak MET capacity of 9 METs. The baseline ECG demonstrated sinus bradycardia. The peak exercise ECG demonstrated no obvious ECG changes. There were no cardiac dysrhythmias pretest, during exercise, or recovery. The functional capacity was considered good. There was no complaint of chest discomfort during exercise or recovery. The examination was discontinued secondary to dyspnea. Impression: 1. Technically adequate (percent predicted maximal heart rate greater than 85%) exercise tolerance test 2. Peak exercise ECG with no obvious ECG changes 3. There were no cardiac dysrhythmias pretest, during exercise, or recovery 4. Nuclear images pending Myocardial perfusion imaging study: Technique: The patient was injected with 10.9 mCi of technetium 99m Cardiolite and subsequently rest SPECT Cardiolite nuclear imaging was obtained in the horizontal long, vertical long, and short axis views. The patient exercised on a Avila protocol for 8 minutes and 30 completing Stage II and 2 minutes and 30 seconds of Stage III achieving a peak heart rate of 164 bpm (89% predicted maximal heart rate) with a peak blood pressure 132/58 mmHg and a peak MET capacity of 9 METs. The patient was injected with 31.3 mCi of technetium 99m Cardiolite and subsequently stress SPECT Cardiolite nuclear imaging was obtained in the horizontal long, vertical long, and short axis views. A gated Cardiolite study at peak stress was obtained. Interpretation: Rest and stress SPECT Cardiolite nuclear imaging status post realignment, normalization, and attenuation correction, demonstrates the appearance of relative uniform tracer uptake and myocardial perfusion appearing within normal limits. There is end systolic thickening and brightening. The gated Cardiolite study demonstrates myocardial thickening and inward wall motion. The reported LVEF is 64%. Impression: 1. Rest and stress SPECT Cardiolite nuclear imaging demonstrate relative uniform tracer uptake and myocardial perfusion appearing within normal limits. 2. The gated Cardiolite study reports an LVEF of 64%. This note was generated with Codewiseation software. It may contain incorrect words, spelling, and punctuation that were not noted in checking the note before signing.
== END ==
PROVIDERS: PCP Family Medicine; Referring Provider Internal Medicine Cardiovascular Disease; Visit Provider Internal Medicine Cardiovascular Disease
DX: R07.2 Precordial pain (principal); R00.2 Palpitations; R55 Syncope and collapse
CPT/HCPCS: 78452; 93017; A9500; A4216

== ENCOUNTER 2021-07-25 21:55 | Emergency (ER) | payer MEDICAID, SELFPAY ==
[2021-07-25 21:55] VITALS: BP 118/89; PULSE 93; RESP 16; TEMP 36.4; O2SAT 97; BMI 25.7
--- NOTE | 2021-07-25 22:19 | CT_ITS ---
STUDY: CT ABDOMEN AND PELVIS WITH CONTRAST REASON FOR EXAM: Male, 35 years old. LLQ pain -- IV PO Contrast RADIATION DOSAGE (If Supplied By Facility): CTDIvol = ( 11.91 ) mGy, DLP = ( 698.54 ) mGycm TECHNIQUE: Transaxial images were obtained from the dome of the diaphragm to the symphysis pubis with oral contrast. Oral and amp; IV Gastrografin and amp; 100mL Isovue-370 was administered. Sagittal and coronal images were reconstructed. Individualized dose optimization techniques were used for this CT. COMPARISON: July 25, 2020 chest x-ray, January 28, 2020 CT scan abdomen and pelvis, November 04, 2015 CT scan abdomen and pelvis FINDINGS: The visualized lung bases are unremarkable. The visualized portions of the heart are within normal limits. Normal liver. The gallbladder is contracted. Normal spleen. Normal pancreas. Normal bilateral adrenal glands. Normal right kidney. There is outward rotation variant of the left kidney. The stomach is full of food and fluid contents, which is hyperdense. Normal small intestine. There is moderate stool in the colon especially the transverse colon. The appendix is visualized and appears normal. Normal abdominal aorta. Normal inferior vena cava. There is a stable lymph node behind the left adrenal gland. Measuring 1.4 x 0.6 cm. Normal urinary bladder. Normal visualized prostate gland. Normal abdominal wall. There is a broad disc bulge L4-L5 mild neural foraminal narrowing without central stenosis. CT/Abdomen/Pelvis WITH Contrast IMPRESSION: Constipation. No hydronephrosis. No appendicitis Electronically Signed: Kathy Sethi MD at 0:18 EST Tel , Service support ,
--- NOTE | 2021-07-25 22:19 | EDS_ITS ---
HPI History of Present Illness Chief Complaint: GI Bleed Informant: patient Onset/Context/Timing Onset: Today Current Severity: Mild Maximum Severity: Mild Narrative Narrative: Patient presents with dark black-colored diarrhea today. He is noted left-sided abdominal pain for the last 4 days. He denies fever or chills. No history of prior colonoscopy. He does note a history of significant acid reflux. PFSH PFSH Medical History Anxiety and depression Asthma Chronic diarrhea GERD (gastroesophageal reflux disease) No significant past medical history Palpitations Sepsis Streptococcal pharyngitis Syncope and collapse Tobacco use Home Medications albuterol sulfate 2 puff INHALATION Q4H PRN PRN 02/22/21 [History Last Taken Unknown] Allergy/AdvReac Type Severity Reaction Status Date / Time fluoxetine HCl [From Prozac] AdvReac Other Verified 07/25/21 21:58 sertraline [From Zoloft] AdvReac Other Verified 07/25/21 21:58 Family History Other Heart disease Social History household members: none Smoking Status: Current every day smoker tobacco type: pipe alcohol intake: never substance use type: does not use caffeine: Yes Type: other Number of servings: 2 ROS ROS ED Constitutional Constitutional ED: Denies chills or fever(s) Eyes Eyes: Denies change in vision ENT ENT ED: Denies sore throat Cardiovascular Cardiovascular: Denies chest pain Respiratory/Chest Respiratory/Chest: Denies cough or dyspnea Gastrointestinal Gastrointestinal: Reports abdominal pain and diarrhea; Denies nausea or vomiting Genitourinary Genitourinary ED: Denies dysuria Musculoskeletal Musculoskeletal: Denies back pain Integumentary Denies rash Neurologic Neurologic: Reports weakness; Denies headache(s) Psychiatric Psychiatric: Denies anxiety or depression Endocrine Endocrinology: Denies polydipsia or polyuria Allergic/Immunologic Allergic/Immunologic ED: Denies urticaria EXAM Physical Exam Const Vital Signs: 07/25/21 21:55 Temperature 97.5 F L Temperature Source Temporal Pulse Rate 93 Respiratory Rate 16 Blood Pressure 118/89 H Blood Pressure Mean 98 Pulse Ox 97 Oxygen Delivery Method Room Air Positive well nourished and well developed General Appearance ED: well developed HEENT Reports normocephalic and head/scalp atraumatic Eyes PERRL and EOMs intact bilaterally Neck supple Chest Wall inspection of chest normal and palpation of chest normal Resp normal respiratory effort and clear to auscultation bilaterally Cardio regular rate and regular rhythm GI non-tender Auscultation: hypoactive bowel sounds Palpation: soft Extremity normal to inspection Neuro oriented x3 and no sensory deficits noted Sensorium / Orientation: alert Motor Exam: strength 5/5 throughout Psych mental status grossly normal Skin no rashes or lesions noted MDM MDM MDM Narrative Medical decision making narrative: Lab work obtained is still guaiac sent from the sample patient brought. CT with p.o. and IV contrast ordered. Lab Data Attestation: I reviewed the patient's lab results. Labs: Laboratory Results - last 24 hr 07/25/21 07/25/21 07/25/21 22:45 22:45 22:45 WBC 5.8 RBC 4.92 Hgb 15.2 Hct 44.0 MCV 89.4 MCH 30.9 MCHC 34.5 RDW Std Deviation 39.8 RDW Coeff of Ara 12.2 Plt Count 265 MPV 9.4 Immature Gran % (Auto) 0.900 Neut % (Auto) 52.5 Lymph % (Auto) 33.7 [place] % (Auto) 8.9 Eos % (Auto) 2.6 Baso % (Auto) 1.4 H Absolute Neuts (auto) 3.1 Absolute Lymphs (auto) 1.96 Nucleated RBC % 0 PT 12.1 INR 1.0 APTT 28.2 Sodium 138 Potassium 3.9 Chloride 105 Carbon Dioxide 29.0 Anion Gap 4 L BUN 11 Creatinine 1.19 Estim Creat Clear Calc 90.52 Est GFR (MDRD) Af Amer 88 Est GFR (MDRD) Non-Af 73 BUN/Creatinine Ratio 9.2 L Glucose 95 Calcium 9.1 Radiography Diagnostic Testing: Clinical Impression(s) from Imaging Studies Abdomen/Pelvis CT 07/25/21 22:19 IMPRESSION: Constipation. No hydronephrosis. No appendicitis Electronically Signed: Kathy Sethi MD at 0:18 EST Tel , Service support , Treatment and Re-Evaluation Comments:: Patient's lab work is unremarkable. Stool guaiac test returned negative. CT scan does reveal evidence of constipation with no evidence of bowel inflammation. Test results discussed with the patient. I did advise him that often the CT contrast to drink will clean him out and make him have multiple bowel movements. He does not feel cleaned out I did suggest getting some MiraLAX [id number]. Return instructions are provided. Discharge Plan Triage Chief Complaint: GI Bleed ED Provider: Jyoti Jarrett Dx/Rx/DC Orders Clinical Impression: Abdominal pain, Constipation Instructions: ED Constipation (Adult), ED Abdominal Pain Unkn Cause Male... Prescriptions: No Action albuterol sulfate 90 mcg/actuation HFA aerosol inhaler 2 puff INHALATION Q4H PRN PRN (Reason: Shortness Of Breath) RF: 0 Primary Care Provider: Brandon Cullen Referrals: Brandon Cullen MD [Primary Care Provider] - As Needed Disposition Disposition: Home, Self Care
[2021-07-25 22:51] LABS: Absolute Lymphocyte Count 1.96 X10^3/uL (0.83-4.51); Absolute Neutrophil Count 3.1 X10^3/uL (2.0-7.7); Basophil# 0.08 X10^3/uL; Basophil% 1.4 % (0-1); Eosinophil# 0.15 X10^3/uL; Eosinophils% 2.6 % (0-5); Hemoglobin 15.2 g/dL (13.0-16.5); Lymphocyte # 1.96 X10^3/ul (0.83-4.51); Lymphocyte % 33.7 % (19-41); Mean Corp Hgb Conc 34.5 g/dL (32-36); Mean Corpuscular Hgb 30.9 pg (27.0-32.0); Mean Corpuscular Volume 89.4 fL (80-94); Mean Platelet Vol. 9.4 fl (6.2-12.0); Monocyte# 0.52 X10^3/uL; Monocyte% 8.9 % (0-10); NRBC Flagged by Analyzer 0 % (0-5); Neutrophil # 3.06 X10^3/uL (2.7-7.7); Neutrophil % 52.5 % (47-70); Platelet Count 265 K/mm3 (150-450); RBC Distribution Width CV 12.2 % (11.6-14.6); RBC Distribution Width SD 39.8 fl (35.1-43.9); Red Blood Count 4.92 M/mm3 (4.6-6.2); White Blood Count 5.8 K/mm3 (4.4-11.0)
[2021-07-25 22:58] LABS: Prothrombin Time (Protime)PT. 12.1 SECONDS (11.7-14.9)
[2021-07-25 22:59] LABS: Partial Thromboplast Time 28.2 Seconds (24.1-36.2)
[2021-07-25 23:04] LABS: Anion Gap 4 (5-15); BUN 11 mg/dL (7-18); BUN/Creat Ratio 9.2 RATIO (10-20); Calcium,Total 9.1 mg/dL (8.5-10.1); Chloride 105 mmol/L (98-107); Creatinine, Serum 1.19 mg/dL (0.70-1.30); EST Glomerular Filtration Rate 73 mL/min (>60); Est Glom Filt Rate - Afr Amer 88 mL/min (>60); Estimated Creatinine Clearance 90.52 ml/min; Glucose 95 mg/dL (74-106); Potassium 3.9 mmol/L (3.5-5.1); Sodium Level 138 mmol/L (136-145)
[2021-07-26 00:23] VITALS: BP 132/80; PULSE 80; RESP 17; O2SAT 98
== END 2021-07-26 00:25 | disposition home or self-care (01) ==
PROVIDERS: Emergency Provider Emergency Medicine; PCP Family Medicine
DX: K59.00 Constipation, unspecified (principal); F17.290 Nicotine dependence, other tobacco product, uncomplicated
CPT/HCPCS: 74177; 80048; 82274; 85025; 85610; 85730; 99284; Q9967; A4216

== ENCOUNTER 2021-09-25 08:28 | Emergency (ER) | payer MEDICAID, SELFPAY ==
[2021-09-25 08:29] VITALS: BP 141/96; PULSE 109; RESP 16; TEMP 36.6; O2SAT 98; BMI 25.5
--- NOTE | 2021-09-25 08:35 | RAD_ITS ---
STUDY: X-RAY CHEST REASON FOR EXAM: Male, 36 years old. Cough, subjective fever, symptoms consistent with, -- Suspect COVID, rales right base TECHNIQUE: Single AP portable view of the chest. COMPARISON: 02/25/2021 FINDINGS: The lungs are clear and expanded. There is no demonstrated pleural abnormality. Normal size heart. Normal mediastinum and mey. Normal visualized pulmonary arteries. Normal visualized aortic arch and descending thoracic aorta. Normal visualized thoracic spine. Normal visualized ribs, clavicles, and shoulders. There is no demonstrated abnormality of the visualized soft tissue structures of the upper abdomen. RAD/Chest 1 View (Portable) IMPRESSION: Normal x-ray examination of the chest. Electronically Signed: Kyle Noyola MD at 9:48 EST Tel , Service support ,
--- NOTE | 2021-09-25 08:48 | EDS_ITS ---
HPI HPI - URI History of Present Illness Chief Complaint: Cough Detail of Chief Complaint: Onset of illness yesterday while at work Informant: patient Onset/Context/Timing Onset: Yesterday Context: Sudden Onset Timing: Continuous Quality: Upper respiratory type symptoms Location: Headache, upper respiratory Current Severity: Mild Maximum Severity: Moderate Worsened by: Not Worsened By Swallowing, Eating Solids and Drinking Liquids Associated Symptoms Associated Symptoms: Positive for Nasal Congestion, Headache, Myalgias, Nausea, Diarrhea, Shortness of Breath, Chest Pain and Nonproductive cough; Negative for Sinus Pressure, Vomiting and Hemoptysis Narrative Narrative: Patient is a 36-year-old male who does smoke. He is unvaccinated. He works at a car [employer]. Yesterday he began to have nasal symptoms with headache. He was given medication at work. He states he called off work today because he has had more symptoms. He noted this morning when he drink his coffee had no taste. His headache has improved since yesterday. He does report rhinorrhea, congestion and postnasal drainage. He does endorse sore throat. He endorsed loss of taste. His cough is nonproductive. He does endorse myalgias and arthralgias. He also endorses bone pain. He reports subjective fever and chills. To his knowledge he has had no ill contacts. Prior similar symptoms: No Recent Illness/Hospitalization: No ROS ROS ED Constitutional Constitutional ED: Reports chills, fever(s) and subjective; Denies sweats or weight loss Eyes Eyes: Denies blurry vision, change in vision or diplopia ENT ENT ED: Reports rhinorrhea and sore throat; Denies ear pain Cardiovascular Cardiovascular: Denies chest pain, orthopnea, palpitations, paroxysmal nocturnal dyspnea or racing heartbeat Respiratory/Chest Respiratory/Chest: Reports cough, dyspnea and dyspnea on exertion; Denies orthopnea, paroxysmal nocturnal dyspnea or sputum Gastrointestinal Gastrointestinal: Reports abdominal pain, diarrhea and nausea; Denies constipation or vomiting Genitourinary Genitourinary ED: Denies dysuria, hematuria or urinary frequency Musculoskeletal Musculoskeletal: Reports arthralgias, back pain and myalgias; Denies neck pain Integumentary Denies rash Neurologic Neurologic: Reports headache(s); Denies paresthesias or weakness Endocrine Endocrinology: Denies polydipsia, polyphagia or polyuria PFSH PFSH Medical History Anxiety and depression Asthma Chronic diarrhea GERD (gastroesophageal reflux disease) No significant past medical history Palpitations Sepsis Streptococcal pharyngitis Syncope and collapse Tobacco use Home Medications albuterol sulfate 2 puff INHALATION Q4H PRN PRN 02/22/21 [History Last Taken Unknown] Allergy/AdvReac Type Severity Reaction Status Date / Time fluoxetine HCl [From Prozac] AdvReac Other Verified 09/25/21 08:31 sertraline [From Zoloft] AdvReac Other Verified 09/25/21 08:31 Family History Other Heart disease Social History household members: none Smoking Status: Current every day smoker tobacco type: cigarettes and pipe alcohol intake: never substance use type: does not use caffeine: Yes Type: other Number of servings: 2 EXAM Physical Exam Const Vital Signs: 09/25/21 08:29 09/25/21 09:07 Temperature 97.8 F Temperature Source Temporal Pulse Rate 109 H Respiratory Rate 16 Respiratory Effort Normal Blood Pressure 141/96 H Blood Pressure Mean 111 Pulse Ox 98 Oxygen Delivery Method Room Air Room Air Positive well nourished and well developed General Appearance ED: well developed and other Patient appears ill. ; Negative for NAD or pallor HEENT Reports TM's clear and dry mucous membranes normocephalic and atraumatic Face and Sinus: Negative for sinus tenderness External Ear: external ears normal, mastoids normal and no preauricular adenopathy External Auditory Canal: EAC's normal Tympanic Membrane ED: Yes TM's clear Mouth ED: Yes dry mucous membranes Mouth: dry mucous membranes Throat: posterior oropharynx abnormal Positive for erythema; Negative for posterior oropharynx normal or tonsils abnormal Eyes PERRL and EOMs intact bilaterally General Eye ED: Negative for pale conjunctiva or scleral icterus Neck no lymphadenopathy, supple, no meningeal signs and no JVD Neck Narrative: Trachea is midline. There is no in-store expiratory stridor. General: Negative for anterior neck swelling or lymphadenopathy Resp normal respiratory effort and No clear to auscultation bilaterally Auscultation: rales right base Cardio S1 normal heart sound, S2 normal heart sound and no murmurs Rate: tachycardic Rhythm: regular rhythm GI non-tender and non-distended Auscultation: normoactive bowel sounds Palpation: soft Back/Spine no CVA tenderness Extremity normal to inspection and full ROM General Extremety ED: Negative for cyanosis General Extremity: Negative for cyanosis Neuro oriented x3 and CN's II-XII intact bilaterally Sensorium / Orientation: alert Psych mental status grossly normal Skin General Skin Exam: Negative for jaundice or pallor Lesions: no lesions Rashes: no rashes MDM MDM MDM Narrative Medical decision making narrative: Clinically patient has COVID. Will obtain x- ray to evaluate for pneumonia. COVID test was ordered. Since he is not tachypneic or hypoxic no other testing was performed. Lab Data Labs: COVID test was negative. Clinically patient has COVID and we will treat as if he has COVID. Radiography Diagnostic Testing: Single view chest x-ray was interpreted by me at 0932 as negative for acute pathology. There is slight hyperaeration. Cardiac silhouette size normal. Perihilar regions normal. Osseous structures are normal. There is no infiltrate or effusion noted. Discharge Plan Triage Chief Complaint: Cough ED Provider: Papi Ashraf Dx/Rx/DC Orders Clinical Impression: Clinical diagnosis of COVID-19 Instructions: Coronavirus Disease 2019 (COVID-19): Caring for Yourself or Others Prescriptions: No Action albuterol sulfate 90 mcg/actuation HFA aerosol inhaler 2 puff INHALATION Q4H PRN PRN (Reason: Shortness Of Breath) RF: 0 Stand Alone Forms: ED Work / School Excuse Primary Care Provider: Brandon Cullen Referrals: Brandon Cullen MD [Primary Care Provider] - 1 Week if not improving Activity Restrictions/Additional Instructions: Your COVID test was negative however clinically you have COVID. The test does not 100% accurate. Disposition Disposition: Home, Self Care
[2021-09-25 09:07] VITALS: O2SAT 97
== END 2021-09-25 09:54 | disposition home or self-care (01) ==
PROVIDERS: Emergency Provider Emergency Medicine; PCP Family Medicine; Visit Provider Emergency Medicine
DX: U07.1 COVID-19 (principal); F17.210 Nicotine dependence, cigarettes, uncomplicated; Z79.899 Other long term (current) drug therapy
CPT/HCPCS: 71045; 87426; 99282

== ENCOUNTER 2022-01-08 11:46 | Emergency (ER) | payer MEDICAID, SELFPAY ==
[2022-01-08 11:47] VITALS: BP 128/79; PULSE 86; RESP 16; TEMP 36.6; O2SAT 99; BMI 25.7
--- NOTE | 2022-01-08 12:00 | CT_ITS ---
STUDY: CT ABDOMEN AND PELVIS WITH CONTRAST REASON FOR EXAM: Male, 36 years old. abdominal pain RADIATION DOSAGE (If Supplied By Facility): CTDIvol = ( 14.97 ) mGy, DLP = ( 681.23 ) mGycm TECHNIQUE: Transaxial images were obtained from the dome of the diaphragm to the symphysis pubis without oral contrast. IV 100mL Isovue-370 was administered. Sagittal and coronal images were reconstructed. Individualized dose optimization techniques were used for this CT. COMPARISON: 07/25/2021 FINDINGS: Lung bases demonstrate no consolidative process. No pericardial effusion. Liver and spleen demonstrate no acute abnormalities. Hepatic steatosis. Pancreas and adrenal glands appear unremarkable. A few prominent caliber retroperitoneal lymph nodes. Gallbladder is nondistended. Nonobstructive bowel gas pattern. Uncomplicated minimal colonic diverticulosis. No evidence for acute appendicitis. No evidence for acute diverticulitis or bowel obstruction. Kidneys demonstrate no evidence for hydronephrosis. No evidence for ureterolithiasis. No free fluid in the pelvis. No drainable fluid collections. No free intraperitoneal air. Dilated fluid-filled small bowel loops in the lower abdomen noted. No acute osseous abnormalities in the lumbar spine. Congenital malrotation of the left kidney No acute osseous abnormalities in the lumbar spine. Small disc bulge at L4-L5 and L5-S1 levels. CT/Abdomen/Pelvis W IV Cont ONLY IMPRESSION: No evidence for acute appendicitis, diverticulitis or bowel obstruction. No evidence for obstructive uropathy. Electronically Signed: Harjeet Deras MD at 12:48 EDT ,
[2022-01-08] MEDS: 0.9% Normal Saline 1,000 ML 1000 ML IV (12:05)
--- NOTE | 2022-01-08 12:06 | EX.ED.DYSGE1 ---
HPI History of Present Illness Chief Complaint: Abd Pain Informant: patient Narrative Narrative: 36-year-old male presenting to the emergency department for the evaluation of abdominal pain. Patient states that symptoms have been present for 5 days. Started in the right lower quadrant now seems to be moving slightly posteriorly. He denies any associated nausea vomiting or diarrhea. No testicular pain. No changes in urination. Symptoms are worse with movement. He states as long as he is laying still it is better. He denies any prior abdominal surgeries. PFSH PFSH Medical History Anxiety and depression Asthma Chronic diarrhea GERD (gastroesophageal reflux disease) No significant past medical history Palpitations Sepsis Streptococcal pharyngitis Syncope and collapse Tobacco use Home Medications albuterol sulfate 2 puff INHALATION Q4H PRN PRN 02/22/21 [History Last Taken Unknown] magnesium citrate 300 ml PO X1 PRN #2 bottle 01/08/22 [Rx Last Taken Unknown] Allergy/AdvReac Type Severity Reaction Status Date / Time fluoxetine HCl [From Prozac] AdvReac Other Verified 01/08/22 11:48 sertraline [From Zoloft] AdvReac Other Verified 01/08/22 11:48 Family History Other Heart disease Surgical History no surgical history no surgical history Social History household members: none Smoking Status: Current every day smoker tobacco type: cigarettes and pipe alcohol intake: never substance use type: does not use caffeine: Yes Type: other Number of servings: 2 ROS ROS ED Constitutional Constitutional ED: Denies chills, fever(s) or weight loss Eyes Eyes: Denies change in vision or diplopia ENT ENT ED: Denies ear pain, rhinorrhea or sore throat Cardiovascular Cardiovascular: Denies chest pain, orthopnea, palpitations or racing heartbeat Respiratory/Chest Respiratory/Chest: Denies cough, dyspnea or orthopnea Gastrointestinal Gastrointestinal: Reports abdominal pain; Denies diarrhea, nausea or vomiting Genitourinary Genitourinary ED: Denies dysuria, hematuria or urinary frequency Musculoskeletal Musculoskeletal: Denies arthralgias or myalgias Integumentary Denies abscess or rash Neurologic Neurologic: Denies headache(s) or weakness Psychiatric Psychiatric: Denies anxiety, depression, suicidal ideation or suicidal thoughts Endocrine Endocrinology: Denies polydipsia, polyphagia or polyuria Allergic/Immunologic Allergic/Immunologic ED: Denies mouth swelling, tongue swelling or urticaria EXAM Physical Exam Const Vital Signs: 01/08/22 11:47 Temperature 98 F Temperature Source Temporal Pulse Rate 86 Respiratory Rate 16 Blood Pressure 128/79 H Blood Pressure Mean 95 Pulse Ox 99 Oxygen Delivery Method Room Air Positive well nourished and well developed General Appearance ED: well developed HEENT Reports normocephalic, head/scalp atraumatic, TM's clear and moist mucous membranes Negative for trauma Tympanic Membrane ED: Yes TM's clear Eyes PERRL and EOMs intact bilaterally Neck no lymphadenopathy, supple and no JVD Resp normal respiratory effort and clear to auscultation bilaterally Cardio regular rate, regular rhythm and no murmurs GI non-tender Palpation: soft and tender RLQ; Negative for guarding or rebound tenderness present Back/Spine no CVA tenderness and normal ROM Extremity normal to inspection General Extremety ED: Negative for edema General Extremity: Negative for edema Neuro oriented x3 and CN's II-XII intact bilaterally Sensorium / Orientation: alert Motor Exam: strength 5/5 throughout Psych mental status grossly normal Mood & Affect: Negative for depressed or tearful Skin no rashes or lesions noted and no wounds MDM MDM MDM Narrative Medical decision making narrative: White count of 6.9. CMP and lipase normal. CT the abdomen pelvis does not demonstrate any appendicitis or obstruction. There is some increased stool noted in the right hemicolon. We will try to move this through with some magnesium citrate. But at this point I think the patient can be discharged home. Lab Data Attestation: I reviewed the patient's lab results. Labs: Laboratory Results - last 24 hr 01/08/22 01/08/22 11:58 11:58 WBC 6.9 RBC 4.84 Hgb 14.5 Hct 43.9 MCV 90.7 MCH 30.0 MCHC 33.0 RDW Std Deviation 42.6 RDW Coeff of Ara 12.8 Plt Count 250 MPV 9.6 Immature Gran % (Auto) 0.600 Neut % (Auto) 65.8 Lymph % (Auto) 23.2 [place] % (Auto) 8.0 Eos % (Auto) 1.4 Baso % (Auto) 1.0 Absolute Neuts (auto) 4.5 Absolute Lymphs (auto) 1.60 Nucleated RBC % 0 Sodium 140 Potassium 4.1 Chloride 107 Carbon Dioxide 28.0 Anion Gap 5 BUN 9 Creatinine 1.17 Estim Creat Clear Calc 91.18 Est GFR (MDRD) Af Amer 90 Est GFR (MDRD) Non-Af 74 BUN/Creatinine Ratio 7.7 L Glucose 89 Calcium 8.8 Total Bilirubin 0.50 AST 20 ALT 27 Alkaline Phosphatase 65 Total Protein 7.7 Albumin 4.0 Globulin 3.7 Albumin/Globulin Ratio 1.1 Lipase 61 L Radiography Diagnostic Testing: Clinical Impression(s) from Imaging Studies Abdomen/Pelvis CT 01/08/22 12:00 IMPRESSION: No evidence for acute appendicitis, diverticulitis or bowel obstruction. No evidence for obstructive uropathy. Electronically Signed: Harjeet Deras MD at 12:48 EDT , Discharge Plan Triage Chief Complaint: Abd Pain ED Provider: Chris Martinez Dx/Rx/DC Orders Clinical Impression: Abdominal pain Instructions: Abdominal Pain Prescriptions: New magnesium citrate Solution 300 ml PO X1 PRN (Reason: constipation) Qty: 2 RF: 0 No Action albuterol sulfate 90 mcg/actuation HFA aerosol inhaler 2 puff INHALATION Q4H PRN PRN (Reason: Shortness Of Breath) RF: 0 Primary Care Provider: Brandon Cullen Referrals: Brandon Cullen MD [Primary Care Provider] - As Needed Disposition Disposition: Home, Self Care
[2022-01-08 12:12] LABS: Absolute Neutrophil Count 4.5 X10^3/uL (2.0-7.7); Basophil# 0.07 X10^3/uL; Eosinophils% 1.4 % (0-5); Hematocrit 43.9 % (40-54); Hemoglobin 14.5 g/dL (13.0-16.5); Lymphocyte % 23.2 % (19-41); Mean Corpuscular Volume 90.7 fL (80-94); Mean Platelet Vol. 9.6 fl (6.2-12.0); Monocyte# 0.55 X10^3/uL; NRBC Flagged by Analyzer 0 % (0-5); Neutrophil # 4.54 X10^3/uL (2.7-7.7); Neutrophil % 65.8 % (47-70); Platelet Count 250 K/mm3 (150-450); RBC Distribution Width CV 12.8 % (11.6-14.6); RBC Distribution Width SD 42.6 fl (35.1-43.9); Red Blood Count 4.84 M/mm3 (4.6-6.2); White Blood Count 6.9 K/mm3 (4.4-11.0)
[2022-01-08 12:27] LABS: ALB/GLOB Ratio 1.1 RATIO (0.9-2.4); AST(SGOT) 20 U/L (15-37); Alanine Aminotransfer ALT/SGPT 27 U/L (16-61); Alkaline Phosphatase 65 U/L (45-117); Anion Gap 5 (5-15); BUN 9 mg/dL (7-18); BUN/Creat Ratio 7.7 RATIO (10-20); Calcium,Total 8.8 mg/dL (8.5-10.1); Chloride 107 mmol/L (98-107); Creatinine, Serum 1.17 mg/dL (0.70-1.30); EST Glomerular Filtration Rate 74 mL/min (>60); Est Glom Filt Rate - Afr Amer 90 mL/min (>60); Estimated Creatinine Clearance 91.18 ml/min; Globulin 3.7 g/dL (2.2-4.2); Glucose 89 mg/dL (74-106); Lipase 61 U/L (73-393); Potassium 4.1 mmol/L (3.5-5.1); Protein, Total 7.7 g/dL (6.4-8.2); Sodium Level 140 mmol/L (136-145)
== END 2022-01-08 13:13 | disposition home or self-care (01) ==
PROVIDERS: Emergency Provider Emergency Medicine; PCP Family Medicine; Visit Provider Emergency Medicine
DX: R10.31 Right lower quadrant pain (principal); F17.210 Nicotine dependence, cigarettes, uncomplicated; F17.290 Nicotine dependence, other tobacco product, uncomplicated
CPT/HCPCS: 74177; 80053; 83690; 85025; 96360; 99283; J7030; Q9967; A4216

== ENCOUNTER 2022-01-15 11:56 | Emergency (ER) | payer MEDICAID, SELFPAY ==
[2022-01-15 11:57] VITALS: BP 146/85; PULSE 114; RESP 20; TEMP 37.1; O2SAT 93; BMI 25.7
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
--- NOTE | 2022-01-15 12:06 | EX.ED.GENINJ ---
HPI History of Present Illness Chief Complaint: Head Injury Detail of Chief Complaint: Head injury with scalp laceration Informant: patient Narrative Narrative: Patient presents to the emergency department with complaint of a head injury with associated scalp laceration that occurred prior to arrival in the emergency department. Patient states that he was at work and he turned quickly and somebody was closing the aguiar on an SUV in the corner of the aguiar caught him on top of the head. He denies loss of consciousness. Denies neck pain. He is unsure of his last tetanus shot. Patient states has been holding pressure. He denies any visual changes. He denies nausea or vomiting. Patient does not want to file this under Workmen's Comp. Tetanus Immunization: Unknown PFSH PFSH Medical History Anxiety and depression Asthma Chronic diarrhea GERD (gastroesophageal reflux disease) No significant past medical history Palpitations Sepsis Streptococcal pharyngitis Syncope and collapse Tobacco use Home Medications albuterol sulfate 2 puff INHALATION Q4H PRN PRN 02/22/21 [History Last Taken Unknown] Allergy/AdvReac Type Severity Reaction Status Date / Time fluoxetine HCl [From Prozac] AdvReac Other Verified 01/15/22 11:56 sertraline [From Zoloft] AdvReac Other Verified 01/15/22 11:56 Family History Other Heart disease Social History household members: none Smoking Status: Current every day smoker tobacco type: cigarettes and pipe alcohol intake: never substance use type: does not use caffeine: Yes Type: other Number of servings: 2 ROS ROS ED Constitutional Constitutional ED: Reports systems reviewed and no addt'l complaints, except as documented; Denies body ache(s), change in weight or chills Eyes Eyes: Denies acute decrease in peripheral vision, change in vision, double vision or loss of vision ENT ENT ED: Reports none; Denies ear pain, lip swelling, loss taste/smell, neck pain, otalgia or sore throat Cardiovascular Cardiovascular: Reports none; Denies abdominal pain, chest pain with activity, leg edema, lightheadedness, palpitations, rapid heart rate or syncope Respiratory/Chest Respiratory/Chest: Reports none; Denies change in mental status, dry cough, dyspnea, hemoptysis, shortness of breath at rest or shortness of breath with exertion Gastrointestinal Gastrointestinal: Reports none; Denies abdominal pain, change in stool character, diarrhea, hematemesis, hematochezia, melena, rectal bleeding or vomiting Genitourinary Genitourinary ED: Reports none; Denies abdominal discomfort, anuria, dysuria, genital pain or polyuria Musculoskeletal Musculoskeletal: Reports none; Denies arthralgias, back pain, difficulty walking, extremity pain, muscle weakness or myalgias Integumentary Reports none and other Details: Scalp laceration ; Denies abscess or rash Neurologic Neurologic: Reports none; Denies abnormal gait, confusion, focal weakness, frequent falls, headache(s), loss of vision, numbness, paresthesias, radicular pain, vertigo or weakness Psychiatric Psychiatric: Reports systems reviewed and no addt'l complaints, except as documented and none; Denies behavioral changes, confusion, difficulty concentrating, hallucinations, suicidal ideation, tactile hallucinations or visual hallucinations Endocrine Endocrinology: Denies none, cold intolerance, excessive sweating, fatigue or heat intolerance Hematologic/Lymphatic Hematologic/Lymphatic: Reports none; Denies anemia, easy bleeding or easy bruising Allergic/Immunologic Allergic/Immunologic ED: Denies as per HPI, none, lip swelling, mouth swelling, throat swelling, tongue swelling or hives EXAM Physical Exam Const Vital Signs: 01/15/22 11:57 Temperature 98.7 F Temperature Source Temporal Pulse Rate 114 H Respiratory Rate 20 H Blood Pressure 146/85 H Blood Pressure Mean 105 Pulse Ox 93 Oxygen Delivery Method Room Air Positive well nourished and well developed General Appearance ED: well developed and NAD HEENT Reports TM's clear and moist mucous membranes HEENT Narrative: Patient has a 2.5 cm laceration to the right frontal scalp. No bony depressions noted. No hemotympanum. normocephalic; Negative for trauma or tenderness Tympanic Membrane ED: Yes TM's clear Eyes PERRL and EOMs intact bilaterally General Eye ED: Negative for pale conjunctiva or scleral icterus Neck no lymphadenopathy, supple and no JVD General: Negative for tenderness Chest Wall inspection of chest normal and palpation of chest normal Chest: Negative for tenderness Resp normal respiratory effort and clear to auscultation bilaterally Effort and Inspection: Negative for respiratory distress or pain with movement Auscultation: Negative for rhonchi, wheezes or diminished lung sounds Cardio regular rate, regular rhythm, S1 normal heart sound, S2 normal heart sound and no murmurs Peripheral Pulses: pulses 2+ throughout GI normal to inspection, nondistended, normoactive bowel sounds, soft to palpation, non-tender, non-distended and no masses Back/Spine no CVA tenderness and no thoracic nor lumbar tenderness Extremity normal to inspection General Extremety ED: Negative for edema General Extremity: Negative for edema Neuro oriented x3, CN's II-XII intact bilaterally, no sensory deficits noted and gait normal Sensorium / Orientation: awake, alert, oriented to person, oriented to place and oriented to time Motor Exam: strength 5/5 throughout and strength abnormal Psych mental status grossly normal Skin no rashes or lesions noted and no wounds PROC Procedures Lacerations Scalp laceration: Length: 0.98 in Depth: Sub Q Shape: Linear Prep: Sterile Conditions and Shure-Clens Laceration repair: Irrigated, Lidocaine with epi and Local Irrigated (ml): 50 Number of Sutures/Ashlee: 2 Suture Information: Ethilon and 4-0 MDM MDM MDM Narrative Medical decision making narrative: Patient was offered suture repair to which she agreed. Patient advised to follow-up in 10 days for suture removal with his primary care physician. Patient to return if increasing pain, redness, swelling, purulent drainage, or condition worsen anyway. I do not feel any imaging otherwise indicated. Patient received Adacel booster. Discharge Plan Triage Chief Complaint: Head Injury ED Provider: Yamileth Sierra Dx/Rx/DC Orders Clinical Impression: Closed head injury, Laceration of scalp Instructions: ED Head Injury (Adult), ED Laceration: All Closures Prescriptions: No Action albuterol sulfate 90 mcg/actuation HFA aerosol inhaler 2 puff INHALATION Q4H PRN PRN (Reason: Shortness Of Breath) RF: 0 Primary Care Provider: Brandon Cullen Referrals: Brandon Cullen MD [Primary Care Provider] - 10 Day for suture removal Disposition Disposition: Home, Self Care
[2022-01-15] MEDS: Lidocaine 1% /Epi 1:100 (20ml) 20 ML Vial 4 ML INFILT (12:11)
[2022-01-15] MEDS: Diphth,Pertuss(Acell),Tet Vac 0.5 ML Vial IM (12:22)
[2022-01-15] MEDS: Ibuprofen 600 MG Tablet PO (12:24)
== END 2022-01-15 12:37 | disposition home or self-care (01) ==
PROVIDERS: Emergency Provider Emergency Medicine; PCP Family Medicine; Visit Provider Emergency Medicine
DX: S01.01XA Laceration without foreign body of scalp, initial encounter (principal); W22.8XXA Striking against or struck by other objects, initial encounter; Y93.89 Activity, other specified; Y99.0 Civilian activity done for income or pay; Y92.89 Other specified places as the place of occurrence of the external cause; J45.909 Unspecified asthma, uncomplicated; K21.9 Gastro-esophageal reflux disease without esophagitis; F17.210 Nicotine dependence, cigarettes, uncomplicated; Z23 Encounter for immunization
CPT/HCPCS: 12001; 90471; 90715; 99282

== ENCOUNTER 2022-02-05 20:04 | Emergency (ER) | payer MEDICAID, SELFPAY ==
[2022-02-05 20:05] VITALS: BP 97/70; PULSE 134; RESP 15; TEMP 38.3; O2SAT 97; BMI 25.1
--- NOTE | 2022-02-05 20:19 | EKG12_ITS ---
Test Reason : ABD PAIN Blood Pressure : / mmHG Vent. Rate : 103 BPM Atrial Rate : 103 BPM P-R Int : 128 ms QRS Dur : 100 ms QT Int : 364 ms P-R-T Axes : 061 044 052 degrees QTc Int : 476 ms Sinus tachycardia Otherwise normal ECG Confirmed by LYNSDAY CARUSO, REMA ([id number]), newspaper editor NIK BARCENAS ([id number]) on 02/07/2022 12:44:44 PM Referred By: SHAHANA Confirmed By:REMA UMANA MD
--- NOTE | 2022-02-05 20:20 | CT_ITS ---
INDICATION: abdominal pain EXAMINATION: CT ABDOMEN AND PELVIS WITHOUT CONTRAST - CT Abdomen And Pelvis W/O Contrast Injection TECHNIQUE: Helically acquired images were obtained of the abdomen and pelvis without oral or IV contrast. A radiation dose optimization technique was used for this scan. IV Contrast dosage and agent: None. Oral contrast: None. COMPARISON: CT abdomen and pelvis 01/08/2022. FINDINGS: LOWER CHEST: Lung bases are clear. No cardiomegaly or pericardial effusion. LIVER: Homogeneous. No focal mass. GALLBLADDER AND BILIARY TREE: No calcified gallstones. No gallbladder distension or wall edema. No intra- or extrahepatic biliary ductal dilation. PANCREAS: No focal cystic or solid mass. SPLEEN: Normal size without focal cystic or solid mass. ADRENAL GLANDS: No nodules. 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 No hydronephrosis. Bladder is unremarkable. PERITONEUM: No ascites or free air. No other fluid collection. BOWEL: No evidence of acute appendicitis. No abnormally distended bowel loops or air fluid levels. No wall thickening or mass. No focal inflammatory changes. LYMPH NODES: No enlarged mesenteric or retroperitoneal lymph nodes. VESSELS: Aorta is non-dilated. REPRODUCTIVE ORGANS: Prostate gland is normal. ABDOMINAL WALL: No discrete abdominal or pelvic wall hernia. BONES: No lytic or blastic abnormality. CT/Abdomen/Pelvis without Cont IMPRESSION: Negative CT abdomen and pelvis without oral or IV contrast. Electronically Signed: Dylon George DO at 22:36 EDT ,
--- NOTE | 2022-02-05 20:25 | EDS_ITS ---
HPI History of Present Illness Chief Complaint: Abd Pain Narrative Narrative: Patient presents with 2-day history of some abdominal pain, nausea and vomiting. He has no diarrhea. The pain is throughout the entire abdomen. He also has a cough and some upper airway congestion. He has registered fever as I walk into the room however he does not know this and does not feel febrile. He has no urinary symptoms or flank pain. He has no difficulty breathing. He has no neck pain or stiffness. No rash. PFSH PFSH Medical History Anxiety and depression Asthma Chronic diarrhea GERD (gastroesophageal reflux disease) No significant past medical history Palpitations Sepsis Streptococcal pharyngitis Syncope and collapse Tobacco use Home Medications albuterol sulfate 2 puff INHALATION Q4H PRN PRN 02/22/21 [History Last Taken Unknown] ondansetron 4 mg PO Q8H #10 tab 02/05/22 [Rx Last Taken Unknown] Allergy/AdvReac Type Severity Reaction Status Date / Time fluoxetine HCl [From Prozac] AdvReac Other Verified 02/05/22 20:09 sertraline [From Zoloft] AdvReac Other Verified 02/05/22 20:09 Family History Other Heart disease Social History household members: none Smoking Status: Current every day smoker tobacco type: cigarettes and pipe alcohol intake: never substance use type: does not use caffeine: Yes Type: other Number of servings: 2 ROS ROS ED ROS Narrative Past medical history: Reviewed Medications: Reviewed Social history: Noncontributory Review of systems: All systems negative except as indicated General: Generalized illness. Eyes: No visual changes ENT: Some nasal congestion. Neck: No neck pain Cardiovascular: No chest pain Respiratory: No shortness of breath. There is a nonproductive cough. Gastrointestinal: As in HPI Genitourinary: No dysuria, no flank pain Musculoskeletal: Denies myalgias no difficulty with ambulation Skin: No rash Neurological: No memory loss, confusion or any focal weakness Psych: No recent behavioral changes Hematologic: No easy bleeding or easy bruising EXAM Physical Exam Narrative Exam Narrative: Physical exam General: Patient appears uncomfortable. Head: Normocephalic, Atraumatic Eyes: Conjunctiva not pale ENT: Moist mucous membranes, there is some slight upper airway congestion, this may just be due to vomiting. Neck: Supple, Nontender, No lymphadenopathy Cardiovascular: Regular rate, Regular rhythm Respiratory: No distress, CTA bilaterally Abdomen: Soft, diffuse tenderness without any guarding or rebound. Back: Nontender, Normal Inspection. Negative for: CVA tenderness Extremities: Nontender, No edema Skin: Normal color, No rash Neurological: Alert, Normal Strength, Normal Sensation Psychological: Normal affect Const Vital Signs: 02/05/22 20:05 02/05/22 22:19 Temperature 101 F H 100.1 F H Temperature Source Temporal Oral Pulse Rate 134 H 97 Respiratory Rate 15 20 H Blood Pressure 97/70 103/49 L Blood Pressure Mean 79 67 Pulse Ox 97 98 Oxygen Delivery Method Room Air Room Air MDM MDM MDM Narrative Medical decision making narrative: Patient is found to have leukocytosis, however otherwise an unremarkable work-up. He significantly improved after IV fluids. I am unsure about the etiology of his nausea and vomiting. He does have some upper airway congestion which could be causing all his symptoms he could have a viral syndrome. His CT is negative his chest x-ray is negative, there is no evidence of sepsis. His heart rate improved significantly. It is now 90 on the monitor when I am in the room and talking to him. I am unsure about the etiology of his symptoms however he significantly improved and I think he can go home. I did however tell him to come back tomorrow since tomorrow is Monday he cannot see his PCP, I told him to come back at 3:00 when I start my shift unless he worsens in which case he is to come back sooner. I do not see a reason for antibiotics at this time. I will discharge him at antiemetics. Lab Data Labs: Laboratory Results - last 24 hr 02/05/22 02/05/22 02/05/22 20:20 20:20 20:31 WBC 20.5 H RBC 4.73 Hgb 14.4 Hct 41.9 MCV 88.6 MCH 30.4 MCHC 34.4 RDW Std Deviation 41.8 RDW Coeff of Ara 12.7 Plt Count 231 MPV 9.5 Immature Gran % (Auto) 0.500 Neut % (Auto) 84.0 H Lymph % (Auto) 8.9 L Wilcox % (Auto) 6.2 Eos % (Auto) 0.1 Baso % (Auto) 0.3 Absolute Neuts (auto) 17.2 H Absolute Lymphs (auto) 1.82 Nucleated RBC % 0 Sodium 137 Potassium 3.6 Chloride 105 Carbon Dioxide 23.0 Anion Gap 9 BUN 13 Creatinine 1.39 H Estim Creat Clear Calc 76.74 Est GFR (MDRD) Af Amer 73 Est GFR (MDRD) Non-Af 61 BUN/Creatinine Ratio 9.4 L Glucose 127 H Lactic Acid 1.8 Calcium 9.4 Total Bilirubin 1.80 H AST 18 ALT 24 Alkaline Phosphatase 69 Total Protein 8.1 Albumin 4.2 Globulin 3.9 Albumin/Globulin Ratio 1.1 Lipase 74 Urine Color Urine Clarity Urine pH Ur Specific [place] Urine Protein Urine Glucose (UA) Urine Ketones Urine Occult Blood Urine Nitrite Urine Bilirubin Urine Urobilinogen Ur Leukocyte Esterase Urine RBC Urine WBC Ur Squamous Epith Cells Urine Bacteria Urine Mucus 02/05/22 20:34 WBC RBC Hgb Hct MCV MCH MCHC RDW Std Deviation RDW Coeff of Ara Plt Count MPV Immature Gran % (Auto) Neut % (Auto) Lymph % (Auto) Wilcox % (Auto) Eos % (Auto) Baso % (Auto) Absolute Neuts (auto) Absolute Lymphs (auto) Nucleated RBC % Sodium Potassium Chloride Carbon Dioxide Anion Gap BUN Creatinine Estim Creat Clear Calc Est GFR (MDRD) Af Amer Est GFR (MDRD) Non-Af BUN/Creatinine Ratio Glucose Lactic Acid Calcium Total Bilirubin AST ALT Alkaline Phosphatase Total Protein Albumin Globulin Albumin/Globulin Ratio Lipase Urine Color Yellow Urine Clarity Clear Urine pH 8.0 Ur Specific [place] 1.010 Urine Protein 30 H Urine Glucose (UA) Normal Urine Ketones 50 H Urine Occult Blood Negative Urine Nitrite Negative Urine Bilirubin Negative Urine Urobilinogen 4 H Ur Leukocyte Esterase 25 H Urine RBC 0 SEEN Urine WBC 0-5 SEEN Ur Squamous Epith Cells 0 SEEN Urine Bacteria 0 SEEN Urine Mucus 0 SEEN Radiography Diagnostic Testing: Clinical Impression(s) from Imaging Studies Abdomen/Pelvis CT 02/05/22 20:20 IMPRESSION: Negative CT abdomen and pelvis without oral or IV contrast. Electronically Signed: Dylon George DO at 22:36 EDT , Chest X-Ray 02/05/22 20:56 IMPRESSION: Normal x-ray examination of the chest. Electronically Signed: Kyle Noyola MD at 21:45 EDT , EKG Initial EKG: Comments: Sinus rhythm with a rate of 103. Normal NV and QTc intervals. No ischemic changes. Interpreted by emergency Dr. Discharge Plan Triage Chief Complaint: Abd Pain ED Provider: Rex David Dx/Rx/DC Orders Clinical Impression: Abdominal pain, Fever, Nausea & vomiting Instructions: Abdominal Pain, ED Fever Control (Adult) Prescriptions: New ondansetron 4 mg tablet,disintegrating 4 mg PO Q8H Qty: 10 RF: 0 No Action albuterol sulfate 90 mcg/actuation HFA aerosol inhaler 2 puff INHALATION Q4H PRN PRN (Reason: Shortness Of Breath) RF: 0 Primary Care Provider: Brandon Cullen Referrals: Brandon Cullen MD [Primary Care Provider] - 2 Days Activity Restrictions/Additional Instructions: Return to the emergency department tomorrow at 3 unless you worsen in which case return earlier. Disposition Disposition: Home, Self Care
[2022-02-05] MEDS: Morphine 2 MG/ML Syringe IV (20:26)
[2022-02-05] MEDS: 0.9% Normal Saline 1,000 ML 1000 ML IV (20:26)
[2022-02-05] MEDS: Ondansetron 4 MG/2 ML Vial IV ×2 (20:26→23:09)
[2022-02-05 20:30] LABS: Absolute Lymphocyte Count 1.82 X10^3/uL (0.83-4.51); Absolute Neutrophil Count 17.2 X10^3/uL (2.0-7.7); Basophil# 0.07 X10^3/uL; Basophil% 0.3 % (0-1); Eosinophil# 0.02 X10^3/uL; Eosinophils% 0.1 % (0-5); Hematocrit 41.9 % (40-54); Hemoglobin 14.4 g/dL (13.0-16.5); Lymphocyte # 1.82 X10^3/ul (0.83-4.51); Lymphocyte % 8.9 % (19-41); Mean Corp Hgb Conc 34.4 g/dL (32-36); Mean Corpuscular Hgb 30.4 pg (27.0-32.0); Mean Corpuscular Volume 88.6 fL (80-94); Mean Platelet Vol. 9.5 fl (6.2-12.0); Monocyte# 1.27 X10^3/uL; Monocyte% 6.2 % (0-10); NRBC Flagged by Analyzer 0 % (0-5); Neutrophil # 17.18 X10^3/uL (2.7-7.7); Platelet Count 231 K/mm3 (150-450); RBC Distribution Width CV 12.7 % (11.6-14.6); RBC Distribution Width SD 41.8 fl (35.1-43.9); Red Blood Count 4.73 M/mm3 (4.6-6.2); White Blood Count 20.5 K/mm3 (4.4-11.0)
[2022-02-05 20:46] LABS: ALB/GLOB Ratio 1.1 RATIO (0.9-2.4); AST(SGOT) 18 U/L (15-37); Alanine Aminotransfer ALT/SGPT 24 U/L (16-61); Albumin, Serum 4.2 g/dL (3.2-5.0); Alkaline Phosphatase 69 U/L (45-117); Anion Gap 9 (5-15); BUN 13 mg/dL (7-18); BUN/Creat Ratio 9.4 RATIO (10-20); Calcium,Total 9.4 mg/dL (8.5-10.1); Chloride 105 mmol/L (98-107); Creatinine, Serum 1.39 mg/dL (0.70-1.30); EST Glomerular Filtration Rate 61 mL/min (>60); Est Glom Filt Rate - Afr Amer 73 mL/min (>60); Estimated Creatinine Clearance 76.74 ml/min; Globulin 3.9 g/dL (2.2-4.2); Glucose 127 mg/dL (74-106); Lipase 74 U/L (73-393); Potassium 3.6 mmol/L (3.5-5.1); Protein, Total 8.1 g/dL (6.4-8.2); Sodium Level 137 mmol/L (136-145)
[2022-02-05 20:50] LABS: Bacteria 0 SEEN /hpf (None Seen); Mucous, Urine 0 SEEN /hpf (<or=2+); Red Blood Cells-Urine 0 SEEN /hpf (0-5); Squamous Epithelial Cells - UA 0 SEEN /hpf (0-5)
[2022-02-05 20:51] LABS: Color, Urine Yellow (Yellow); Glucose, Dipstick Normal (Normal); Ketone-Dipstick 50 mg/dl (Negative); Leukocyte Esterase-Dipstick 25 /ul (Negative); Nitrite-Dipstick Negative (Negative); Occult Blood-Urine Negative /ul (Negative); Protein-Dipstick 30 mg/dl (Negative); Urine Bilirubin Dipstick Negative (Negative); Urine Clarity Clear (Clear); Urine Urobilinogen 4 mg/dl (Normal)
--- NOTE | 2022-02-05 20:56 | RAD_ITS ---
STUDY: X-RAY CHEST REASON FOR EXAM: Male, 36 years old. fever TECHNIQUE: Single AP portable view of the chest. COMPARISON: 09/25/2021 FINDINGS: The lungs are clear and expanded. There is no demonstrated pleural abnormality. Normal size heart. Normal mediastinum and mey. Normal visualized pulmonary arteries. Normal visualized aortic arch and descending thoracic aorta. Normal visualized thoracic spine. Normal visualized ribs, clavicles, and shoulders. There is no demonstrated abnormality of the visualized soft tissue structures of the upper abdomen. RAD/Chest 1 View (Portable) IMPRESSION: Normal x-ray examination of the chest. Electronically Signed: Kyle Noyola MD at 21:45 EDT ,
[2022-02-05 21:02] LABS: Lactic Acid 1.8 mmol/L (0.4-1.9)
[2022-02-05 21:17] LABS: White Blood Cells 0-5 SEEN /hpf (0-5)
[2022-02-05 22:19] VITALS: BP 103/49; PULSE 97; RESP 20; TEMP 37.8; O2SAT 98
[2022-02-05 23:10] VITALS: BP 99/45; PULSE 91; RESP 16; O2SAT 98
== END 2022-02-05 23:15 | disposition home or self-care (01) ==
PROVIDERS: Emergency Provider Emergency Medicine; PCP Family Medicine; Visit Provider Emergency Medicine
DX: R10.9 Unspecified abdominal pain (principal); R50.9 Fever, unspecified; R11.2 Nausea with vomiting, unspecified; F17.210 Nicotine dependence, cigarettes, uncomplicated; F17.290 Nicotine dependence, other tobacco product, uncomplicated
CPT/HCPCS: 71045; 74176; 80053; 81001; 83605; 83690; 85025; 87635; 87811; 93005; 96361; 96374; 96375; 96376; 99283; J7030; A4216; J2405; U0003; U0005

== ENCOUNTER 2022-02-08 10:56 | Emergency (ER) | payer MEDICAID, SELFPAY ==
[2022-02-08 10:57] VITALS: BP 115/77; PULSE 100; RESP 18; TEMP 36.6; O2SAT 96; BMI 25.7
[2022-02-08 11:16] VITALS: BP 115/77; PULSE 100; RESP 18; TEMP 36.6; O2SAT 96
--- NOTE | 2022-02-08 11:40 | EX.ED.VIS.UR ---
HPI HPI - URI History of Present Illness Chief Complaint: Sore Throat Informant: patient Onset/Context/Timing Onset: Days (4) Context: Gradual Onset Quality: Sore Location: Throat Current Severity: Moderate Maximum Severity: Moderate Worsened by: Swallowing Relieved by: - (Has not tried any medications) Associated Symptoms Associated Symptoms: Positive for Nasal Congestion, Headache and Nonproductive cough; Negative for Sinus Pressure, Myalgias, Nausea, Vomiting, Diarrhea, Shortness of Breath, Chest Pain and Hemoptysis Narrative Narrative: Patient has had URI symptoms for the past 3 or 4 days, he had fevers during day 1 and came here and had a rapid COVID that was negative, rapid influenza that was negative, and then a COVID PCR that returned negative. Now he has a bad sore throat with odynophagia as well as the other symptoms without any other new developments. ROS ROS ED Constitutional Constitutional ED: Denies chills or fever(s) ENT ENT ED: Reports nasal congestion, rhinorrhea and sore throat Cardiovascular Cardiovascular: Denies chest pain or palpitations Respiratory/Chest Respiratory/Chest: Reports cough; Denies dyspnea Gastrointestinal Gastrointestinal: Denies abdominal pain, diarrhea, nausea or vomiting Genitourinary Genitourinary ED: Denies dysuria or hematuria Musculoskeletal Musculoskeletal: Denies myalgias or neck pain Integumentary Denies abscess or rash Neurologic Neurologic: Denies headache(s), paresthesias or weakness Psychiatric Psychiatric: Denies depression or suicidal thoughts Endocrine Endocrinology: Denies polydipsia or polyuria PFSH PFSH Medical History Anxiety and depression Asthma Chronic diarrhea GERD (gastroesophageal reflux disease) No significant past medical history Palpitations Sepsis Streptococcal pharyngitis Syncope and collapse Tobacco use Home Medications albuterol sulfate 2 puff INHALATION Q4H PRN PRN 02/22/21 [History Last Taken Unknown] ondansetron 4 mg PO Q8H #10 tab 02/05/22 [Rx Last Taken Unknown] benzonatate 200 mg PO TID PRN #24 cap 02/08/22 [Rx Last Taken Unknown] Allergy/AdvReac Type Severity Reaction Status Date / Time fluoxetine HCl [From Prozac] AdvReac Other Verified 02/08/22 10:59 sertraline [From Zoloft] AdvReac Other Verified 02/08/22 10:59 Family History Other Heart disease Social History household members: none Smoking Status: Current every day smoker tobacco type: cigarettes and pipe alcohol intake: never substance use type: does not use caffeine: Yes Type: other Number of servings: 2 EXAM Physical Exam Const Vital Signs: 02/08/22 10:57 02/08/22 11:16 Temperature 98 F 98 F Temperature Source Temporal Temporal Pulse Rate 100 100 Respiratory Rate 18 18 Respiratory Effort Normal Non-Labored Respiratory Pattern Normal Blood Pressure 115/77 115/77 Blood Pressure Mean 89 89 Pulse Ox 96 96 Oxygen Delivery Method Room Air Room Air Positive well nourished and well developed General Appearance ED: well developed and NAD HEENT Reports moist mucous membranes normocephalic and atraumatic Mouth ED: Yes tongue normal, No drooling, No muffled voice and No trismus Mouth: tongue normal, No drooling, No muffled voice and No trismus Throat: tonsils normal, uvula midline and posterior oropharynx abnormal Positive for erythema; Negative for edema and exudates; Negative for hoarseness Eyes PERRL and EOMs intact bilaterally Neck supple and no meningeal signs General: lymphadenopathy submandibular (without posterior LAD) Resp normal respiratory effort and clear to auscultation bilaterally Resp Narrative: Frequent nonproductive coughing/bronchospasm Cardio no murmurs Rate: regular rate Rhythm: regular rhythm GI normal to inspection, nondistended, normoactive bowel sounds, soft to palpation, non-tender and non-distended Neuro oriented x3, CN's II-XII intact bilaterally and no sensory deficits noted Sensorium / Orientation: alert Motor Exam: strength 5/5 throughout Skin Lesions: no lesions Rashes: no rashes MDM MDM MDM Narrative Medical decision making narrative: Rapid strep is negative. Culture is sent, I did confirm that his COVID PCR was negative. His vital signs are normal, no indication here for a chest x-ray at this time, supportive care advised for what is likely viral illness. I did give him a dose of oral Decadron 12 mg that should help with his odynophagia. He has been sick for a couple days. If this goes on for more than 2 weeks, then trying empiric antibiotics would then be indicated as I discussed with him. Follow-up advised. Discharge Plan Triage Chief Complaint: Sore Throat ED Provider: Medhat Dean Dx/Rx/DC Orders Clinical Impression: Viral URI with cough Instructions: ED URI, Viral, No Abx (Adult) Prescriptions: New benzonatate 100 mg capsule 200 mg PO TID PRN (Reason: cough) Qty: 24 RF: 0 No Action albuterol sulfate 90 mcg/actuation HFA aerosol inhaler 2 puff INHALATION Q4H PRN PRN (Reason: Shortness Of Breath) RF: 0 ondansetron 4 mg tablet,disintegrating 4 mg PO Q8H Qty: 10 RF: 0 Primary Care Provider: Brandon Cullen Referrals: Brandon Cullen MD [Primary Care Provider] - 1-2 Weeks Disposition Disposition: Home, Self Care
[2022-02-08] MEDS: dexAMETHasone 4 MG Tablet 12 MG PO (12:18)
== END 2022-02-08 12:45 | disposition home or self-care (01) ==
PROVIDERS: Emergency Provider Emergency Medicine; PCP Family Medicine; Visit Provider Emergency Medicine
DX: J06.9 Acute upper respiratory infection, unspecified (principal); F17.210 Nicotine dependence, cigarettes, uncomplicated; F17.290 Nicotine dependence, other tobacco product, uncomplicated
CPT/HCPCS: 87880; 99283

== ENCOUNTER 2022-02-09 05:21 | Emergency (ER) | payer MEDICAID, SELFPAY ==
[2022-02-09 05:22] VITALS: BP 127/80; PULSE 82; RESP 17; TEMP 36.5; O2SAT 97; BMI 25.3
--- NOTE | 2022-02-09 05:41 | EX.ED.DYSGE1 ---
HPI History of Present Illness Chief Complaint: Foreign Body Narrative Narrative: Patient is a 36-year-old male who was seen today secondary to upper respiratory infection symptoms. He has had negative rapid COVID/influenza as well as PCR studies. Today he had a negative strep. 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 He states this is never happened to him before and this was concerning and therefore he comes in for evaluation. Patient states that he has not had any more events since this initial episode. He denies any trouble breathing or swallowing. He denies any bleeding disorder or blood thinner use. PFSH PFSH Medical History Anxiety and depression Asthma Chronic diarrhea GERD (gastroesophageal reflux disease) No significant past medical history Palpitations Sepsis Streptococcal pharyngitis Syncope and collapse Tobacco use Home Medications albuterol sulfate 2 puff INHALATION Q4H PRN PRN 02/22/21 [History Last Taken Unknown] ondansetron 4 mg PO Q8H #10 tab 02/05/22 [Rx Last Taken Unknown] benzonatate 200 mg PO TID PRN #24 cap 02/08/22 [Rx Last Taken Unknown] azelastine 2 spray INTRANASAL BID #30 ml 02/09/22 [Rx Last Taken Unknown] prednisone 40 mg PO DAILY 5 Days #10 tab 02/09/22 [Rx Last Taken Unknown] Allergy/AdvReac Type Severity Reaction Status Date / Time fluoxetine HCl [From Prozac] AdvReac Other Verified 02/09/22 05:25 sertraline [From Zoloft] AdvReac Other Verified 02/09/22 05:25 Family History Other Heart disease Social History household members: none Smoking Status: Current every day smoker tobacco type: cigarettes and pipe alcohol intake: never substance use type: does not use caffeine: Yes Type: other Number of servings: 2 ROS ROS ED Constitutional Constitutional ED: Denies chills or fever(s) ENT ENT ED: Reports rhinorrhea and sore throat Cardiovascular Cardiovascular: Denies chest pain Respiratory/Chest Respiratory/Chest: Reports cough and sputum; Denies dyspnea Gastrointestinal Gastrointestinal: Denies abdominal pain, diarrhea, nausea or vomiting Genitourinary Genitourinary ED: Denies dysuria Musculoskeletal Musculoskeletal: Denies myalgias Integumentary Denies rash Neurologic Neurologic: Denies headache(s) Hematologic/Lymphatic Hematologic/Lymphatic: Denies easy bleeding or easy bruising EXAM Physical Exam Const Vital Signs: 02/09/22 05:22 02/09/22 05:26 Temperature 97.7 F L Temperature Source Temporal Pulse Rate 82 Respiratory Rate 17 Respiratory Effort Normal Respiratory Pattern Normal Blood Pressure 127/80 H Blood Pressure Mean 95 Pulse Ox 97 Oxygen Delivery Method Room Air Positive well nourished and well developed General Appearance ED: well developed HEENT Reports moist mucous membranes HEENT Narrative: Patient is nasal mucosa is hyperemic and boggy with enlarged inferior nasal turbinates the left greater than right. No dried blood or active bleeding noted. Posterior pharynx displays cobblestoning consistent with sinus drainage without airway edema or compromise. Eyes PERRL and EOMs intact bilaterally Neck supple Neck Narrative: Positive anterior cervical lymphadenopathy noted. No crepitance Resp normal respiratory effort and clear to auscultation bilaterally Cardio regular rate and regular rhythm Extremity normal to inspection Neuro oriented x3 and CN's II-XII intact bilaterally Sensorium / Orientation: alert Motor Exam: strength 5/5 throughout Psych mental status grossly normal Skin no rashes or lesions noted MDM MDM MDM Narrative Medical decision making narrative: Patient presented to the ER with stable vitals and in no acute respiratory distress. His report is consistent with expulsion of a large mucous clot/plug. However the patient does not have crepitance in his neck to suggest a pneumomediastinum there is no active bleeding or airway compromise and patient is only had 1 bout of this. Therefore at this time I do not believe that imaging or laboratory studies would aid in any type of diagnosis or treatment strategy. I feel the patient's symptoms are most like related to his inflamed nostril passages and the persistent mucus production. Therefore patient will be given nasal spray and steroids to help reduce this but as he is in no signs of respiratory distress without active nostril bleeding or changes to suggest pneumomediastinum on exam he is otherwise safe for discharge Discharge Plan Triage Chief Complaint: Foreign Body ED Provider: Jamison Yo Dx/Rx/DC Orders Clinical Impression: Viral URI with cough Instructions: ED URI, Viral, No Abx (Adult) Prescriptions: New azelastine 137 mcg (0.1 %) aerosol,spray 2 spray intranasal BID Qty: 30 RF: 0 prednisone 20 mg tablet 40 mg PO DAILY 5 Days Qty: 10 RF: 0 No Action albuterol sulfate 90 mcg/actuation HFA aerosol inhaler 2 puff INHALATION Q4H PRN PRN (Reason: Shortness Of Breath) RF: 0 ondansetron 4 mg tablet,disintegrating 4 mg PO Q8H Qty: 10 RF: 0 benzonatate 100 mg capsule 200 mg PO TID PRN (Reason: cough) Qty: 24 RF: 0 Primary Care Provider: Brandon Cullen Referrals: Brandon Cullen MD [Primary Care Provider] - Activity Restrictions/Additional Instructions: Please continue taking the medication that was prescribed at your initial visit today to help control cough. However in order to prevent further mucous plug formation take the nasal spray and steroids as directed. Please return to the ER should you have any further concerns. Disposition Disposition: Home, Self Care
== END 2022-02-09 05:52 | disposition home or self-care (01) ==
PROVIDERS: Emergency Provider Emergency Medicine; PCP Family Medicine; Visit Provider Emergency Medicine
DX: J06.9 Acute upper respiratory infection, unspecified (principal); F17.210 Nicotine dependence, cigarettes, uncomplicated; F17.290 Nicotine dependence, other tobacco product, uncomplicated
CPT/HCPCS: 99282

== ENCOUNTER 2022-07-03 11:08 | Emergency (ER) | payer MEDICAID, SELFPAY ==
[2022-07-03 11:08] VITALS: BP 120/73; PULSE 102; RESP 18; TEMP 36.6; O2SAT 98; BMI 25.9
--- NOTE | 2022-07-03 11:21 | RAD_ITS ---
HISTORY: chest pain. TECHNIQUE: XR Chest 1 View. COMPARISON: 02/05/2022. FINDINGS: CARDIOMEDIASTINAL BORDERS: Cardiac silhouette within normal limits in size. Mediastinal contour unremarkable. LUNGS: Radiographically clear. PLEURA: No pleural effusion or pneumothorax seen. OSSEOUS STRUCTURES: Unremarkable. RAD/Chest 1 View (Portable) IMPRESSION: No acute cardiopulmonary process identified. Electronically Signed: Makayla Jiménez MD at 12:09 EDT ,
--- NOTE | 2022-07-03 11:21 | EKG12_ITS ---
Test Reason : Blood Pressure : / mmHG Vent. Rate : 083 BPM Atrial Rate : 083 BPM P-R Int : 118 ms QRS Dur : 104 ms QT Int : 360 ms P-R-T Axes : 067 068 057 degrees QTc Int : 423 ms Normal sinus rhythm Normal ECG Confirmed by ZAINA CARUSO, DELORES ([id number]), assistant film editor NIK BARCENAS ([id number]) on 07/05/2022 1:03:03 PM Referred By: Confirmed By:DELORES MAHAJAN MD
[2022-07-03 11:22] VITALS: O2SAT 98
[2022-07-03 11:32] LABS: Absolute Lymphocyte Count 1.84 X10^3/uL (0.83-4.51); Absolute Neutrophil Count 4.7 X10^3/uL (2.0-7.7); Basophil# 0.09 X10^3/uL; Basophil% 1.2 % (0-1); Eosinophil# 0.13 X10^3/uL; Eosinophils% 1.7 % (0-5); Hematocrit 42.4 % (40-54); Hemoglobin 14.8 g/dL (13.0-16.5); Lymphocyte # 1.84 X10^3/ul (0.83-4.51); Lymphocyte % 24.6 % (19-41); Mean Corp Hgb Conc 34.9 g/dL (32-36); Mean Corpuscular Hgb 31.8 pg (27.0-32.0); Mean Platelet Vol. 9.3 fl (6.2-12.0); Monocyte# 0.68 X10^3/uL; Monocyte% 9.1 % (0-10); NRBC Flagged by Analyzer 0 % (0-5); Neutrophil # 4.72 X10^3/uL (2.7-7.7); Neutrophil % 63.1 % (47-70); Platelet Count 252 K/mm3 (150-450); RBC Distribution Width CV 12.8 % (11.6-14.6); RBC Distribution Width SD 42.4 fl (35.1-43.9); Red Blood Count 4.66 M/mm3 (4.6-6.2); White Blood Count 7.5 K/mm3 (4.4-11.0)
[2022-07-03 11:49] LABS: Anion Gap 6 (5-15); BUN 9 mg/dL (7-18); BUN/Creat Ratio 8.3 RATIO (10-20); Calcium,Total 9.1 mg/dL (8.5-10.1); Chloride 108 mmol/L (98-107); Creatinine, Serum 1.09 mg/dL (0.70-1.30); EST Glomerular Filtration Rate 80 mL/min (>60); Est Glom Filt Rate - Afr Amer 97 mL/min (>60); Estimated Creatinine Clearance 97.87 ml/min; Glucose 106 mg/dL (74-106); Sodium Level 139 mmol/L (136-145); Troponin-I HS (w/2H Reflex) 4 pg/mL (3.0-78.0)
--- NOTE | 2022-07-03 11:54 | EDS_ITS ---
HPI History of Present Illness Chief Complaint: Chest Pain Informant: patient Onset/Context/Timing Onset: Today Activity at onset: sudden Timing: Intermittent and Lasts (Few minutes) Quality: Positive for Pressure Location: Left Chest Worsened By: Nothing Relieved By: Nothing Associated Symptoms: Positive for Cough and Acid Reflux; Negative for Nausea, Vomiting, Diaphoresis, Dyspnea, Fever, Lightheadedness or Palpitations Narrative Narrative: Patient presents with chest pain that began today. Patient states it began rather suddenly. Patient states it has been intermittent throughout the day today. Patient states it is over the left upper chest. Patient states it lasts a few minutes and then resolves. Patient states nothing makes it better nothing makes it worse. Patient describes it as a pressure like there is a balloon in his chest. Patient admits to a cough. Patient admits to some heartburn and reflux. Patient denies any shortness of breath. Patient denies any fevers or chills. Patient denies any nausea or vomiting. CVD Risk Factors: Positive for Smoking; Negative for Hypertension, Diabetes, Hypercholesterolemia or Family History 1' </=55 PE Risk Factors: Negative for Recent Travel/Surgery, Recent Immobilization, Prior DVT or PE, Cancer or OCP + Smoking + >/=35 PFSH PFSH Medical History Anxiety and depression Asthma Chronic diarrhea GERD (gastroesophageal reflux disease) No significant past medical history Palpitations Sepsis Streptococcal pharyngitis Syncope and collapse Tobacco use Home Medications albuterol sulfate 90 mcg/actuation aerosol inhaler 2 puff inhalation Q4H PRN PRN Shortness Of Breath 02/22/21 [History Last Taken Unknown] Allergy/AdvReac Type Severity Reaction Status Date / Time fluoxetine HCl [From Prozac] AdvReac Other Verified 07/03/22 11:09 sertraline [From Zoloft] AdvReac Other Verified 07/03/22 11:09 Family History Other Heart disease Surgical History no surgical history no surgical history Social History household members: none Smoking Status: Current every day smoker tobacco type: cigarettes and pipe alcohol intake: never substance use type: does not use caffeine: Yes Type: other Number of servings: 2 ROS ROS ED Constitutional Constitutional ED: Denies chills or fever(s) Eyes Eyes: Reports blurry vision; Denies diplopia ENT ENT ED: Denies rhinorrhea or sore throat Cardiovascular Cardiovascular: Reports chest pain; Denies palpitations Respiratory/Chest Respiratory/Chest: Reports cough; Denies dyspnea Gastrointestinal Gastrointestinal: Denies abdominal pain, nausea or vomiting Genitourinary Genitourinary ED: Denies dysuria or hematuria Musculoskeletal Musculoskeletal: Reports back pain and neck pain Integumentary Denies abscess or rash Neurologic Neurologic: Denies headache(s) or weakness Allergic/Immunologic Allergic/Immunologic ED: Denies mouth swelling or urticaria EXAM Physical Exam Const Vital Signs: 07/03/22 11:08 07/03/22 11:22 07/03/22 11:26 Temperature 98 F Temperature Source Temporal Pulse Rate 102 H Respiratory Rate 18 Respiratory Effort Normal Non-Labored Blood Pressure 120/73 Blood Pressure Mean 88 Pulse Ox 98 98 Oxygen Delivery Method Room Air Room Air 07/03/22 13:22 07/03/22 14:00 Temperature Temperature Source Pulse Rate 68 57 L Respiratory Rate 16 15 Respiratory Effort Blood Pressure 101/68 99/57 L Blood Pressure Mean 79 71 Pulse Ox 98 98 Oxygen Delivery Method Room Air Room Air Positive well nourished and well developed General Appearance ED: well developed and NAD HEENT Reports moist mucous membranes normocephalic and atraumatic Eyes PERRL and EOMs intact bilaterally Neck supple and no JVD Chest Wall palpation of chest normal Resp normal respiratory effort and clear to auscultation bilaterally Effort and Inspection: Negative for respiratory distress Cardio regular rate, regular rhythm and no murmurs GI normal to inspection, nondistended, normoactive bowel sounds, soft to palpation, non-tender and non-distended Extremity normal to inspection General Extremety ED: Negative for edema or tenderness General Extremity: Negative for edema Neuro oriented x3, CN's II-XII intact bilaterally and no sensory deficits noted Sensorium / Orientation: awake and alert Motor Exam: strength 5/5 throughout Psych mental status grossly normal Heart Score History: Slightly/Non-Suspicious ECG: Normal Age: </= 45 years Risk Factors: 1 or 2 Risk Factors Troponin: </= Normal Limit Score: 1 MDM MDM MDM Narrative Medical decision making narrative: Patient was given aspirin here. EKG was obtained. On my interpretation, it showed a normal sinus rhythm with a rate of 83. IN interval, QRS interval, and QTc intervals were all normal. [place] was normal. There are no acute ST or T wave changes. Portable 1 view chest x-ray was obtained. On my interpretation, lung castro are clear. There is normal cardiac silhouette. Bony thorax is normal. There is no acute process noted. Radiologist also interpreted the x- ray and agrees. CBC was within normal limits. Basic metabolic profile was within normal limits. High-sensitivity troponin was normal. 2-hour repeat high-sensitivity troponin was unchanged from previous. Patient was advised of his findings. Patient has a HEART score of 1. Patient was advised that this is low risk for acute cardiac event. Patient was instructed to continue taking Tylenol or ibuprofen as needed for pain. Patient was instructed to follow-up with his primary care physician in 5 to 7 days. Patient understood and was agreeable with the plan. All questions were answered. Lab Data Attestation: I reviewed the patient's lab results. Labs: Laboratory Results - last 24 hr 07/03/22 07/03/22 07/03/22 11:24 11:24 13:30 WBC 7.5 RBC 4.66 Hgb 14.8 Hct 42.4 MCV 91.0 MCH 31.8 MCHC 34.9 RDW Std Deviation 42.4 RDW Coeff of Ara 12.8 Plt Count 252 MPV 9.3 Immature Gran % (Auto) 0.300 Neut % (Auto) 63.1 Lymph % (Auto) 24.6 [place] % (Auto) 9.1 Eos % (Auto) 1.7 Baso % (Auto) 1.2 H Absolute Neuts (auto) 4.7 Absolute Lymphs (auto) 1.84 Nucleated RBC % 0 Sodium 139 Potassium 4.0 Chloride 108 H Carbon Dioxide 25.0 Anion Gap 6 BUN 9 Creatinine 1.09 Estim Creat Clear Calc 97.87 Est GFR (MDRD) Af Amer 97 Est GFR (MDRD) Non-Af 80 BUN/Creatinine Ratio 8.3 L Glucose 106 Calcium 9.1 Troponin I High Sens 4 4 Radiography Chest X-Ray - ED: 1 View, Read by ED Physician, Read by Radiologist and No Acute Disease Diagnostic Testing: Clinical Impression(s) from Imaging Studies Chest X-Ray 07/03/22 11:21 IMPRESSION: No acute cardiopulmonary process identified. Electronically Signed: Makayla Jiménez MD at 12:09 EDT , EKG Initial EKG: Attestation: I personally reviewed and interpreted this EKG as follows: Interpretation: Sinus Rhythm (83) and No Acute Injury Pattern Prior EKG tracings: available for review Prior: Unchanged (02/05/2022) Discharge Plan Triage Chief Complaint: Chest Pain ED Provider: Andrea Sullivan Dx/Rx/DC Orders Clinical Impression: Chest pain Instructions: ED Chest Pain, Uncertain Cause Prescriptions: No Action albuterol sulfate 90 mcg/actuation HFA aerosol inhaler 2 puff INHALATION Q4H PRN PRN (Reason: Shortness Of Breath) Stand Alone Forms: ED Work / School Excuse Primary Care Provider: Brandon Cullen Referrals: Brandon Cullen MD [Primary Care Provider] - 3-5 Days Disposition Disposition: Home, Self Care
[2022-07-03] MEDS: Aspirin 81 MG TAB.CHEW 324 MG PO (12:03)
[2022-07-03 13:22] VITALS: BP 101/68; PULSE 68; RESP 16; O2SAT 98
[2022-07-03 13:28] LABS: Reflex Troponin-HS? (from REC) Y
[2022-07-03 13:55] LABS: Troponin-I HS 4 pg/mL (3.0-78.0)
[2022-07-03 14:00] VITALS: BP 99/57; PULSE 57; RESP 15; O2SAT 98
[2022-07-03 14:52] VITALS: BP 108/74; PULSE 71; RESP 16; O2SAT 98
== END 2022-07-03 14:52 | disposition home or self-care (01) ==
PROVIDERS: Emergency Provider Emergency Medicine; PCP Family Medicine; Visit Provider Emergency Medicine
DX: R07.9 Chest pain, unspecified (principal); F17.200 Nicotine dependence, unspecified, uncomplicated; F17.290 Nicotine dependence, other tobacco product, uncomplicated
CPT/HCPCS: 71045; 80048; 84484; 85025; 93005; 99285; A4216

== ENCOUNTER 2023-01-15 22:57 | Emergency (ER) | payer MEDICAID, SELFPAY ==
--- NOTE | 2023-01-15 00:25 | RAD_ITS ---
EXAM: XR CHEST, 2 VIEWS CLINICAL INDICATION: chest pain TECHNIQUE: Frontal and lateral views of the chest. COMPARISON: July 03, 2022 FINDINGS: LUNGS AND PLEURAL SPACES: Unremarkable. No consolidation or edema. No pneumothorax. No effusion. HEART: Unremarkable. Cardiac silhouette not enlarged. MEDIASTINUM: Central airways and mediastinal contour are unremarkable. BONES/JOINTS: Unremarkable. SOFT TISSUES: Unremarkable. RAD/Chest PA and Lateral IMPRESSION: No radiographic evidence of acute cardiopulmonary disease. Electronically Signed: Jamison Katz MD at 0:43 EDT ,
[2023-01-15 22:59] VITALS: BP 139/110; PULSE 102; RESP 18; TEMP 36.6; O2SAT 99; BMI 25.7
--- NOTE | 2023-01-15 23:22 | EKG12_ITS ---
Test Reason : CP Blood Pressure : / mmHG Vent. Rate : 083 BPM Atrial Rate : 083 BPM P-R Int : 128 ms QRS Dur : 102 ms QT Int : 356 ms P-R-T Axes : 071 064 062 degrees QTc Int : 418 ms Normal sinus rhythm Incomplete right bundle branch block Borderline ECG Confirmed by LYNDSAY CARUSO, REMA ([id number]), manager editorial NIK BARCENAS ([id number]) on 01/17/2023 8:19:41 AM Referred By: BB Confirmed By:REMA UMANA MD
--- NOTE | 2023-01-15 23:26 | EDS_ITS ---
HPI History of Present Illness Chief Complaint: Chest Pain Informant: patient Narrative Narrative: Patient states for the past 4 days she has been having episodes of chest discomfort that occur randomly throughout the day, less than 5 episodes per day, about 5 minutes in duration each time. Feels like pressure in his chest, radiates straight through to his back, and does not give him any other associated symptoms such as palpitations, dyspnea, nausea, vomiting, diaphoresis, syncope, or near syncope. No recent illness or injury. No other changes in his usual habits. He is a smoker. PFSH PFS Medical History Anxiety and depression Asthma Chronic diarrhea GERD (gastroesophageal reflux disease) No significant past medical history Palpitations Sepsis Streptococcal pharyngitis Syncope and collapse Tobacco use Home Medications albuterol sulfate 90 mcg/actuation aerosol inhaler 2 puff inhalation Q4H PRN PRN Shortness Of Breath 02/22/21 [History Last Taken Unknown] pantoprazole 40 mg tablet,delayed release 40 mg PO DAILY #30 tabs 01/16/23 [Rx Last Taken Unknown] Allergy/AdvReac Type Severity Reaction Status Date / Time fluoxetine HCl [From Prozac] AdvReac Other Verified 07/03/22 11:09 sertraline [From Zoloft] AdvReac Other Verified 07/03/22 11:09 Family History Other Heart disease Social History household members: none Smoking Status: Current every day smoker tobacco type: cigarettes and pipe alcohol intake: never substance use type: does not use caffeine: Yes Type: other Number of servings: 2 ROS ROS ED Constitutional Constitutional ED: Denies chills or fever(s) Eyes Eyes: Denies change in vision or diplopia ENT ENT ED: Denies rhinorrhea or sore throat Cardiovascular Cardiovascular: Reports chest pain; Denies palpitations Respiratory/Chest Respiratory/Chest: Denies cough or dyspnea Gastrointestinal Gastrointestinal: Denies abdominal pain, diarrhea, nausea or vomiting Genitourinary Genitourinary ED: Denies dysuria or hematuria Musculoskeletal Musculoskeletal: Denies back pain or neck pain Integumentary Denies abscess or rash Neurologic Neurologic: Denies headache(s), paresthesias or weakness Psychiatric Psychiatric: Denies anxiety or suicidal thoughts EXAM Physical Exam Const Vital Signs: 01/15/23 22:59 01/16/23 00:00 01/16/23 00:00 Temperature 97.9 F Temperature Source Oral Pulse Rate 102 H Respiratory Rate 18 Respiratory Effort Normal Respiratory Pattern Normal Blood Pressure 139/110 H Blood Pressure Mean 119 Pulse Ox 99 Oxygen Delivery Method Room Air Room Air Positive well nourished and well developed General Appearance ED: well developed and NAD HEENT Reports moist mucous membranes normocephalic and atraumatic Eyes PERRL and EOMs intact bilaterally Neck full ROM and supple Resp normal respiratory effort and clear to auscultation bilaterally Cardio regular rate, regular rhythm and no murmurs Rate: Negative for tachycardic GI non-tender and non-distended Auscultation: normoactive bowel sounds Palpation: soft Back/Spine no CVA tenderness General Back: other FROM Extremity normal to inspection General Extremety ED: Negative for edema, pulses abnormal or tenderness General Extremity: Negative for edema or pulses abnormal Neuro oriented x3, CN's II-XII intact bilaterally and no sensory deficits noted Sensorium / Orientation: awake and alert Motor Exam: strength 5/5 throughout Skin no rashes or lesions noted and no wounds Heart Score History: Slightly/Non-Suspicious ECG: Normal Age: </= 45 years Risk Factors: 1 or 2 Risk Factors Troponin: </= Normal Limit Score: 1 MDM MDM MDM Narrative Medical decision making narrative: Smoking is the patient's main risk factor. He has had symptoms similar to this in the past. I reviewed prior ED visit, as well as an outpatient cardiology visit. Seems that he had a history of GERD in the past was put on famotidine b ut he is not taking that or any other medications right now. Work-up here is unremarkable including EKG, troponin, basic labs, two-view chest x-ray which on my interpretation is normal, radiology is in agreement. He was given a pantoprazole here while we were observing him, he had no recurrent symptoms and his vital signs are remaining stable and unremarkable. I am going to put him on pantoprazole and advised that he follow-up with his regular doctor he is comfortable with that plan. Lab Data Attestation: I reviewed the patient's lab results. Labs: Laboratory Results - last 24 hr 01/15/23 01/15/23 00:05 00:05 WBC 7.4 RBC 4.57 L Hgb 13.7 Hct 41.5 MCV 90.8 MCH 30.0 MCHC 33.0 RDW Std Deviation 42.2 RDW Coeff of Ara 12.8 Plt Count 255 MPV 9.3 Immature Gran % (Auto) 0.400 Neut % (Auto) 57.9 Lymph % (Auto) 29.2 [place] % (Auto) 9.0 Eos % (Auto) 2.3 Baso % (Auto) 1.2 H Absolute Neuts (auto) 4.3 Absolute Lymphs (auto) 2.15 Nucleated RBC % 0 Sodium 140 Potassium 3.8 Chloride 106 Carbon Dioxide 28.0 Anion Gap 6 BUN 8 Creatinine 1.05 Estim Creat Clear Calc 100.60 Est GFR (MDRD) Af Amer 101 Est GFR (MDRD) Non-Af 83 BUN/Creatinine Ratio 7.6 L Glucose 97 Calcium 9.0 Troponin I High Sens 4 Radiography Diagnostic Testing: Clinical Impression(s) from Imaging Studies Chest X-Ray 01/15/23 00:25 IMPRESSION: No radiographic evidence of acute cardiopulmonary disease. Electronically Signed: Jamison Katz MD at 0:43 EDT , Rhythm Strip Rhythm Strip: Sinus Rhythm Rate: 85 Ectopy: None EKG Initial EKG: Attestation: I personally reviewed and interpreted this EKG as follows: Interpretation: Sinus Rhythm and No Acute Injury Pattern Comments: Normal EKG Prior EKG tracings: available for review Prior: Unchanged Discharge Plan Triage Chief Complaint: Chest Pain ED Provider: Medhat Dean Dx/Rx/DC Orders Clinical Impression: Intermittent chest pain Instructions: ED Chest Pain, Noncardiac Prescriptions: New pantoprazole 40 mg tablet,delayed release (DR/EC) 40 mg PO DAILY Qty: 30 0RF No Action albuterol sulfate 90 mcg/actuation HFA aerosol inhaler 2 puff INHALATION Q4H PRN PRN (Reason: Shortness Of Breath) Primary Care Provider: Brandon Cullen Referrals: Brandon Cullen MD [Primary Care Provider] - 1-2 Weeks Disposition Disposition: Home, Self Care
[2023-01-15] MEDS: Pantoprazole Sodium 40 MG Tablet PO (23:59)
[2023-01-16 00:13] LABS: Absolute Lymphocyte Count 2.15 X10^3/uL (0.83-4.51); Absolute Neutrophil Count 4.3 X10^3/uL (2.0-7.7); Basophil# 0.09 X10^3/uL; Basophil% 1.2 % (0-1); Eosinophil# 0.17 X10^3/uL; Eosinophils% 2.3 % (0-5); Hematocrit 41.5 % (40-54); Hemoglobin 13.7 g/dL (13.0-16.5); Lymphocyte # 2.15 X10^3/ul (0.83-4.51); Lymphocyte % 29.2 % (19-41); Mean Corpuscular Volume 90.8 fL (80-94); Mean Platelet Vol. 9.3 fl (6.2-12.0); Monocyte# 0.66 X10^3/uL; NRBC Flagged by Analyzer 0 % (0-5); Neutrophil # 4.27 X10^3/uL (2.7-7.7); Neutrophil % 57.9 % (47-70); Platelet Count 255 K/mm3 (150-450); RBC Distribution Width CV 12.8 % (11.6-14.6); RBC Distribution Width SD 42.2 fl (35.1-43.9); Red Blood Count 4.57 M/mm3 (4.6-6.2); White Blood Count 7.4 K/mm3 (4.4-11.0)
[2023-01-16 00:41] LABS: Anion Gap 6 (5-15); BUN 8 mg/dL (7-18); BUN/Creat Ratio 7.6 RATIO (10-20); Chloride 106 mmol/L (98-107); Creatinine, Serum 1.05 mg/dL (0.70-1.30); EST Glomerular Filtration Rate 83 mL/min (>60); Est Glom Filt Rate - Afr Amer 101 mL/min (>60); Glucose 97 mg/dL (74-106); Potassium 3.8 mmol/L (3.5-5.1); Sodium Level 140 mmol/L (136-145); Troponin-I HS 4 pg/mL (3.0-78.0)
[2023-01-16 01:13] VITALS: BP 131/76; PULSE 77; RESP 18
== END 2023-01-16 01:45 | disposition home or self-care (01) ==
PROVIDERS: Emergency Provider Emergency Medicine; PCP Family Medicine; Visit Provider Emergency Medicine
DX: R07.89 Other chest pain (principal); F17.210 Nicotine dependence, cigarettes, uncomplicated; F17.290 Nicotine dependence, other tobacco product, uncomplicated
CPT/HCPCS: 71046; 80048; 84484; 85025; 93005; 99284; A4216

== ENCOUNTER 2023-02-14 13:15 | Emergency (ER) | payer MEDICAID, SELFPAY ==
[2023-02-14 13:16] VITALS: BP 133/91; PULSE 86; RESP 18; TEMP 35.8; O2SAT 98; BMI 26.2
--- NOTE | 2023-02-14 14:25 | ED.VIS.GI ---
HPI HPI - GI History of Present Illness Chief Complaint: GI Bleed Detail of Chief Complaint: Bright red blood with bowel movement this morning Informant: patient and spouse/S.O. Abdominal Pain/Flank Pain Onset: Hours Context: Sudden Onset Timing: Intermittent Quality: - (Had crampy bilateral pain prior to bowel movement) Current Severity: Gone Maximum Severity: Moderate Worsened by: - (Prior to bowel movement) Relieved by: Nothing Nausea/Vomiting/Emesis GI Symptom: Positive for Nausea; Negative for Vomiting Diarrhea/Melena/Hematochezia GI Symptom: Positive for Hematochezia; Negative for Diarrhea or Melena Associated Symptoms Associated Symptoms: Negative for Dysuria, Frequency, Hematuria or Urgency Narrative Narrative: Patient is a 37-year-old male with history of GERD and bronchospasm who presents because of crampy bilateral abdominal pain prior to bowel movement. Bowel movement was bloody. He was uncertain to color of his stool. Did take a picture of the commode. His stool does appear to be brown. He denies history of liver disease. He denies history of colon problems. He denies black or maroon-colored stool. Patient denies orthostatic symptoms. Patient denies cardiac symptoms. Patient denies dyspnea or dyspnea on exertion. Prior similar symptoms: No Recent Illness/Hospitalization: No PFSH PFSH Medical History Anxiety and depression Asthma Chronic diarrhea GERD (gastroesophageal reflux disease) No significant past medical history Palpitations Sepsis Streptococcal pharyngitis Syncope and collapse Tobacco use Home Medications albuterol sulfate 90 mcg/actuation aerosol inhaler 2 puff inhalation Q4H PRN PRN Shortness Of Breath 02/22/21 [History Last Taken Unknown] pantoprazole 40 mg tablet,delayed release 40 mg PO DAILY #30 tabs 01/16/23 [Rx Last Taken Unknown] Allergy/AdvReac Type Severity Reaction Status Date / Time fluoxetine HCl [From Prozac] AdvReac Other Verified 07/03/22 11:09 sertraline [From Zoloft] AdvReac Other Verified 07/03/22 11:09 Family History Other Heart disease Social History household members: none Smoking Status: Current every day smoker tobacco type: cigarettes and pipe alcohol intake: never substance use type: does not use caffeine: Yes Type: other Number of servings: 2 ROS ROS ED Constitutional Constitutional ED: Denies chills, fever(s), subjective, sweats or weight loss ENT ENT ED: Denies ear pain or rhinorrhea Cardiovascular Cardiovascular: Denies chest pain or palpitations Respiratory/Chest Respiratory/Chest: Denies cough, dyspnea or dyspnea on exertion Gastrointestinal Gastrointestinal: Reports abdominal pain and nausea; Denies constipation, diarrhea, melena or vomiting Genitourinary Genitourinary ED: Denies dysuria, hematuria or urinary frequency Musculoskeletal Musculoskeletal: Denies arthralgias, back pain, myalgias or neck pain Integumentary Denies abscess, Abrasions or rash Neurologic Neurologic: Denies headache(s), paresthesias or weakness Endocrine Endocrinology: Denies polydipsia or polyuria Hematologic/Lymphatic Hematologic/Lymphatic: Denies easy bleeding or easy bruising Allergic/Immunologic Allergic/Immunologic ED: Denies mouth swelling or tongue swelling EXAM Physical Exam Const Vital Signs: 02/14/23 13:16 Temperature 96.5 F L Temperature Source Temporal Pulse Rate 86 Respiratory Rate 18 Blood Pressure 133/91 H Blood Pressure Mean 105 Pulse Ox 98 Oxygen Delivery Method Room Air Positive well nourished and well developed General Appearance ED: well developed and NAD; Negative for pallor HEENT Reports TM's clear and moist mucous membranes normocephalic and atraumatic Tympanic Membrane ED: Yes TM's clear Eyes PERRL and EOMs intact bilaterally General Eye ED: Negative for pale conjunctiva or scleral icterus Neck no lymphadenopathy, supple and no JVD Resp normal respiratory effort and clear to auscultation bilaterally Cardio regular rate, regular rhythm, S1 normal heart sound, S2 normal heart sound and no murmurs GI non-distended and no masses; Negative for non-tender GI Narrative: There is no visible hemorrhoids noted. There is no fissures or fistulas noted. Stool appears to be brown. Inspection: abdominal distention Auscultation: hyperactive bowel sounds Palpation: soft and tender suprapubic; Negative for guarding, rigid, hepatomegaly, splenomegaly, hernia, mass, pulsatile mass or rebound tenderness present Back/Spine no CVA tenderness Extremity full ROM General Extremety ED: Negative for edema General Extremity: Negative for edema Neuro CN's II-XII intact bilaterally, moves all extremities and no sensory deficits noted Sensorium / Orientation: alert Psych mental status grossly normal and thought process normal Skin no wounds General Skin Exam: Negative for jaundice or pallor Procedures Other Procedures Procedure(s): Anoscopy was performed. Patient is noted to have a hemorrhoid, external, at 7:00 lithotomy position. There is no active bleeding at this time. Stool is brown in color. Patient was told he has a hemorrhoid. He was told this is the cause of the blood in the commode. He was discharged home with appropriate home-going instructions. Discharge Plan Triage Chief Complaint: GI Bleed ED Provider: Papi Ashraf Dx/Rx/DC Orders Clinical Impression: Bleeding external hemorrhoids Instructions: ED Hemorrhoids Prescriptions: No Action albuterol sulfate 90 mcg/actuation HFA aerosol inhaler 2 puff INHALATION Q4H PRN PRN (Reason: Shortness Of Breath) pantoprazole 40 mg tablet,delayed release (DR/EC) 40 mg PO DAILY Qty: 30 0RF Primary Care Provider: Brandon Cullen Referrals: Brandon Cullen MD [Primary Care Provider] - 1 Week if not improving Disposition Disposition: Home, Self Care
== END 2023-02-14 14:57 | disposition home or self-care (01) ==
PROVIDERS: Emergency Provider Emergency Medicine; PCP Family Medicine; Visit Provider Emergency Medicine
DX: K64.8 Other hemorrhoids (principal); F17.210 Nicotine dependence, cigarettes, uncomplicated; F17.290 Nicotine dependence, other tobacco product, uncomplicated
CPT/HCPCS: 46600; 99282

== ENCOUNTER 2023-09-09 19:30 | Emergency (ER) | payer SELFPAY ==
[2023-09-09 19:31] VITALS: BP 114/98; PULSE 120; RESP 18; TEMP 36.6; O2SAT 96; BMI 25.8
--- NOTE | 2023-09-09 19:59 | EDS_ITS ---
HPI HPI - Psych History of Present Illness Chief Complaint: Mental Health Narrative Narrative: 38-year-old male past medical history of depression and anxiety, presents voluntarily with the [facility] department for depression. He states that on Monday of last week, 4 days ago, he found out that his ex girlfriend of 10 years had moved out and left him. He had spoken with her at lunchtime, and when he came home at around 430, found out that she had taken all of her belongings and moved out. He was at home with his brother as well. He came here voluntarily because he wants to get hooked up with the counseling center again. He used to see them and follow-up with them 10 years ago, but quit taking his medication for depression. PFSH PFSH Medical History Anxiety and depression Asthma Chronic diarrhea GERD (gastroesophageal reflux disease) No significant past medical history Palpitations Sepsis Streptococcal pharyngitis Syncope and collapse Tobacco use Home Medications albuterol sulfate 90 mcg/actuation aerosol inhaler 2 puff inhalation Q4H PRN PRN Shortness Of Breath 02/22/21 [History Last Taken Unknown] pantoprazole 40 mg tablet,delayed release 40 mg PO DAILY #30 tabs 01/16/23 [Rx Last Taken Unknown] Allergy/AdvReac Type Severity Reaction Status Date / Time fluoxetine HCl [From Prozac] AdvReac Other Verified 09/09/23 19:31 sertraline [From Zoloft] AdvReac Other Verified 09/09/23 19:31 Family History Other Heart disease Social History household members: none Smoking Status: Current every day smoker tobacco type: cigarettes alcohol intake: never substance use type: does not use caffeine: Yes Type: other Number of servings: 2 ROS ROS ED ROS Narrative Constitutional: No fever, no chills. HEENT: No sore throat. No neck pain. No loss of vision. No rhinorrhea. Cardiovascular: No chest pain. No palpitations. No pedal edema. Respiratory: No cough, no shortness of breath. Abdominal: No abdominal pain. No nausea. No vomiting. Genitourinary: No dysuria. No hematuria. Musculoskeletal: No myalgias. No arthralgias. Neurologic: No headaches. No dizziness. No lightheadedness. Skin: No rash. No change in color. Psychiatric: Positive depression. No anxiety. No suicidal ideation. No homicidal ideation. No hallucinations. EXAM Physical Exam Narrative Exam Narrative: Afebrile. Vital signs noted. HEENT: Normocephalic. Atraumatic. PERRL, EOMI. Neck soft and supple. No point tenderness or step off. Cardiovascular: Regular rate and rhythm. No murmurs, rubs, or gallops a ppreciated. Respiratory: No tachypnea. Lungs clear to auscultation bilaterally. Gastrointestinal: Abdomen soft, nontender, with normoactive bowel sounds. No rebound or guarding. Neurological: Awake. Alert. Nonfocal, nonlateralizing. Skin: No rash. Normal color. No pallor. Musculoskeletal: No pedal edema. Full range of motion extremities. Psychiatric: Denies suicidal ideation, denies homicidal ideation. No internal stimulation or active hallucinations. Const Vital Signs: 09/09/23 19:31 Temperature 97.8 F Temperature Source Temporal Pulse Rate 120 H Respiratory Rate 18 Blood Pressure 114/98 H Blood Pressure Mean 103 Pulse Ox 96 Oxygen Delivery Method Room Air MDM MDM MDM Narrative Medical decision making narrative: I had a lengthy discussion with the patient. The [facility] had also served him with a restraining order from his ex-girlfriend while he was here in the emergency department. They are not going to place a 72-hour hour hold on him and stated that he was coming here voluntarily. He never admitted suicidal ideation to them. Although initially screening labs were ordered, patient merely wants to speak with the counseling center and get set up as an outpatient. He is to call Monday for an appointment after discussion with crisis. I do not feel that he requires a 72-hour hold. He is not actively suicidal. Additionally, his brother is at the bedside who is comfortable taking him home. The patient is able to contract for safety without ambivalence, and will return with thoughts of suicide, new or worsening symptoms. Disposition is discharged home in stable condition. History & Record Review Discussion w/independent historian: Patient and Family Discharge Plan Triage Chief Complaint: Mental Health ED Provider: Du Strickland Dx/Rx/DC Orders Clinical Impression: Depression Instructions: ED Depression Prescriptions: No Action albuterol sulfate 90 mcg/actuation HFA aerosol inhaler 2 puff INHALATION Q4H PRN PRN (Reason: Shortness Of Breath) pantoprazole 40 mg tablet,delayed release (DR/EC) 40 mg PO DAILY Qty: 30 0RF Primary Care Provider: Brandon Cullen Referrals: Counseling,Center [Group of Physicians] - 2 Days Brandon Cullen MD [Primary Care Provider] - Activity Restrictions/Additional Instructions: Follow-up with the counseling center on Monday. Return with thoughts of suicide, increased depression, new or worsening symptoms. Disposition Disposition: Home, Self Care
--- OUTSIDE RECORDS SUMMARY | 2023-09-09 20:26 | XMS RPT_ITS | CCD ---
Author Name Unknown Address [address] [place] [address] Organization [facility] Care Team Providers Care Test Developer Name Role Phone Alexys Patrick MD Primary Care Provider NICK CHOUDHURY Referring Unavailab ALEXYS Fernandez Primary Care Unavailable NICK CHOUDHURY Referring Unavailab ALEXYS Fernandez Primary Care Unavailable NICK CHOUDHURY Attending Unavailab ALEXYS Fernandez Primary Care Unavailable ALEXYS PATRICK Primary Care Unavailable JONAS MEDINA Attending Unavailable MIN HERNANDEZ Referring Unavailable ALEXYS PATRICK Primary Care Unavailable MIN HERNANDEZ Referring Unavailable ALEXYS PATRICK Primary Care Unavailable ALEXYS PATRICK Primary Care Unavailable Alexys Patrick MD Primary Care Provider ZOEY HEART MD Attending Unavailable PHYSICIAN, NONE Primary Care Unavailable Allergies Allergy Classification Reported Allergen(s) Allergy Type Date of Onset Reaction(s) Facility (9 sources) FLUoxetine; Translations: [FLUOXETINE HCL] Drug Allergy 06-15-2018 Other: See Comments [facility] (9 sources) Sertraline; Translations: [SERTRALINE] Drug Allergy 06-15-2018 Other: See Comments [facility] Medications Current Medications Medication Drug Class(es) Dates Sig (Normalized) Sig (Original) benzonatate 100 mg oral capsule (1 source) Non-narcotic Antitussive Start: 04-27-2022 End: 05-07-2022 take 1 capsule by mouth every eight hours as needed benzonatate (TESSALON PERLE) 100 mg capsule Take 1 capsule by mouth three times daily as needed for up to 10 days. 30 capsule 0 04/27/2022 05/07/2022 Active Completed/Discontinued Medications Medication Drug Class(es) Dates Sig (Normalized) Sig (Original) [id number] 200 actuat albuterol 0.09 mg/actuat metered dose inhaler (16 sources) beta2-Adrenergic Agonist Start: 09-28-2021 take 2 puff(s) by inhalation every four hours as needed albuterol HFA (PROAIR HFA) 90 mcg/actuation inhaler Indications: Suspected COVID-19 virus infection , History of asthma Inhale 2 Puffs as instructed every 4 hours as needed. 18 g 0 09/28/2021 Active Problems Active Problems Problem Classification Problem Date Documented Date Episodic/Chronic Immunizations and screening for infectious disease (1 source) Suspected disease caused by 2019-nCoV; Translations: [Suspected COVID-19 virus infection] Episodic Other connective tissue disease (2 sources) Pain in right thumb; Translations: [Pain in right finger(s)] Episodic Other connective tissue disease (1 source) Pain in right finger(s); Translations: [Thumb pain, right] Onset: 3 Episodic Other lower respiratory disease (1 source) Hemoptysis; Translations: [Hemoptysis] Episodic Other upper respiratory infections (1 source) Acute upper respiratory infection; Translations: [Acute upper respiratory infection, unspecified] Episodic Sprains and strains (1 source) Rupture of ulnar collateral ligament of thumb; Translations: [Sprain of metacarpophalangeal joint of right thumb, initial encounter] Episodic Substance-related disorders (8 sources) Smoker; Translations: [Nicotine dependence, unspecified, uncomplicated] Onset: 0 03-25-2020 Chronic Past or Other Problems Problem Classification Problem Date Documented Da te Episodic/Chronic Other lower respiratory disease (8 sources) Dyspnea; Translations: [Shortness of breath] Onset: 03-25-2020 03-25-2020 Episodic Other lower respiratory disease (1 source) Hemoptysis; Translations: [Hemoptysis] Onset: 04-27-2022 Episodic Results Test Name Value Interpretation Reference Range Facil ity Vital Signs Date Time Vital Sign Value Performing Clinician Faci lity 12-15-2022 10:01-0400 Body temperature 98.91 [degF] Min Hernandez MD Work Phone: [facility] 12-15-2022 10:01-0400 Body weight 82.74 kg Min Hernandez MD Work Phone: [facility] 12-15-2022 10:01-0400 Diastolic blood pressure 80 mm[Hg] Min Hernandez MD Work Phone: [facility] 12-15-2022 10:01-0400 Heart rate 93 /min Min Hernandez MD Work Phone: [facility] 12-15-2022 10:01-0400 Respiratory rate 18 /min Min Hernandez MD Work Phone: [facility] 12-15-2022 10:01-0400 SaO2% (BldA) [Mass fraction] 98 % Min Hernandez MD Work Phone: [facility] 12-15-2022 10:01-0400 Systolic blood pressure 132 mm[Hg] Min Hernandez MD Work Phone: [facility] 08-02-2022 13:41-0500 Body temperature 99.1 [degF] Moon Gonzalez APRN.TRANSMITTER ENGINEER Work Phone: [facility] 08-02-2022 13:41-0500 Body weight 78.93 kg Moon Gonzalez APRN.TRANSMITTER ENGINEER Work Phone: [facility] 08-02-2022 13:41-0500 Diastolic blood pressure 80 mm[Hg] Moon Gonzalez APRN.TRANSMITTER ENGINEER Work Phone: [facility] 08-02-2022 13:41-0500 Heart rate 96 /min Moon Gonzalez APRN.TRANSMITTER ENGINEER Work Phone: [facility] 08-02-2022 13:41-0500 Respiratory rate 18 /min Moon Gonzalez APRN.TRANSMITTER ENGINEER Work Phone: [facility] 08-02-2022 13:41-0500 SaO2% (BldA) [Mass fraction] 99 % Moon Gonzalez APRN.TRANSMITTER ENGINEER Work Phone: [facility] 08-02-2022 13:41-0500 Systolic blood pressure 122 mm[Hg] Moon Gonzalez APRN.TRANSMITTER ENGINEER Work Phone: [facility] 04-27-2022 15:32-0400 Body temperature 98.2 [degF] Nick Choudhury MD Work Phone: [facility] 04-27-2022 15:32-0400 Body weight 78.47 kg Nick Choudhury MD Work Phone: [facility] 04-27-2022 15:32-0400 Diastolic blood pressure 80 mm[Hg] Nick Choudhury MD Work Phone: [facility] 04-27-2022 15:32-0400 Heart rate 99 /min Nick Choudhury MD Work Phone: [facility] 04-27-2022 15:32-0400 Respiratory rate 14 /min Nick Choudhury MD Work Phone: [facility] 04-27-2022 15:32-0400 SaO2% (BldA) [Mass fraction] 98 % Nick Choudhury MD Work Phone: [facility] 04-27-2022 15:32-0400 Systolic blood pressure 120 mm[Hg] Nick Choudhury MD Work Phone: [facility] Encounters Encounter Date Encounter Type Care Provider Facility Start: 06-02-2023 End: 06-02-2023 Emergency department patient visit ZOEY HEART MD Facility:B Start: 12-21-2022 End: 12-21-2022 ambulatory [facility] Facility:[facility] Start: 12-21-2022 End: 12-21-2022 Patient encounter procedure Jonas Medina MD Work Phone: Orthopaedics Plan of Treatment Date Care Activity Detail Author Start: 05-05-2023 [facility] Start: 09-04-2022 DEPRESSION ASSESSMENT DEPRESSION ASSESSMENT [facility] Start: 08-02-2022 End: 08-16-2022 Influenza virus A and B RNA and SARS-CoV-2 (COVID-19) N gene panel - Respiratory specimen by FREDI with probe detection COVID WITH FLUA+B, ROUTINE Microbiology Routine URI, acute Expected: 08/02/2022, Expires: 08/16/2022 [facility] Work Phone: Payers Date Payer Category Payer Self-pay 2022 Medicaid [id number] 2019 Medicaid [employer] [facility] [id number] 2019-Present [phone] [address] [place] [address] Medicaid [id number] 2019 Medicaid [id number] 2019 Medicaid [id number] 1985 Unknown [id number] Social History Date Type Detail Facility Start: 03-25-2020 End: 12-15-2022 Tobacco smoking status SDIS Smokes tobacco daily [facility] Start: 03-25-2020 End: 12-15-2022 Tobacco use and exposure Smokeless tobacco non-user [facility] Start: 03-25-2020 History SDOH Alcohol Frequency 1 [facility] Start: 03-25-2020 History SDOH Social Connections Phone 5 [facility] Start: 03-25-2020 History SDOH Social Connections Membership 2 [facility] Start: 03-25-2020 History SDOH Social Connections Living 7 [facility] Start: 03-25-2020 History SDOH Physica l Activity MPS 15 [facility] Start: 03-25-2020 Education 8 [facility] Start: 1985 Sex Assigned At Not on file C [facility] Start: 04-17-2022 End: 04-27-2022 Exposure to SARS-CoV-2 (event) Not sure [facility] Start: 07-23-2022 End: 08-02-2022 Exposure to SARS-CoV-2 (event) Yes [facility] Work Phone: History of tobacco use Cigarette Smoker C [facility] Clinical Notes 02-07-2022 to 01-01-2023 Jonas Medina MD - 12/31/2022 10:07 PM Arthur Hernandez MD - 12/15/2022 10:03 AM EDTTelephone Encounter - Camilla Mark ANAMIKA - 08/03/2022 9:08 AM EST Note Date & Type Note Facility 01-01-2023 Note HNO ID: [id number] Author: Jonas Medina MD Service: ? Author Type: Physician Type: Progress Notes Filed: 12/31/2022 10:15 PM Note Text: DEPARTMENT OF ORTHOPAEDICS HISTORY OF PRESENT ILLNESS: This is a pleasant 37 year old male, who presents today with a chief complaint of right thumb pain. He complains of sharp pain about the ulnar aspect of approximately 1 weeks duration. This pain is intermittent. He reports trauma. He reports he had his thumb bent while attempting to catch a runaway dog. He complains that the pain is 7/10. The pain is exacerbated by lifting and gripping. Previous treatments have included none. He denies proximal radiation. He denies distal radiation. He denies numbness, tingling, or electric shocks. He denies popping, clicking, catching, locking, grinding, instability, buckling, or giving way. He reports swelling and/or warmth. He denies multiple joint complaints. No past medical history on file. No past surgical history on file. Current Outpatient Medications Medication Sig Dispense Refill albuterol HFA (PROAIR HFA) 90 mcg/actuation inhaler Inhale 2 Puffs as instructed every 4 hours as needed. 18 g 0 albuterol HFA (VENTOLIN HFA) 90 mcg/actuation inhaler Inhale 2 Puffs as instructed every 4 hours as needed for Wheezing/Shortness of Breath. 1 Inhaler 0 No current facility-administered medications for this visit. ALLERGIES Allergen Reactions Fluoxetine Hcl Other: See Comments Panic attack Sertraline Other: See Comments Panic attack No family history on file. Social History Tobacco Use Smoking status: Every Day Types: Cigarettes Smokeless tobacco: Never Vaping Use Vaping Use: Never used Substance Use Topics Drug use: Not Currently Hand Dominance: right handed Occupation: Works at a car wash Activity level: recreational, sport/activity: none REVIEW OF SYSTEMS: GENERAL: negative for malaise, significant weight loss, night sweats and fever HEENT: No changes in hearing or vision, no nose bleeds or other nasal problems., No trouble swallowing RESPIRATORY: Negative for cough, wheezing and shortness of breath CARDIOVASCULAR: Negative for chest pain, leg swelling, palpitations, orthopnea GI: Negative for abdominal discomfort, hematochezia, melena, hematemesis, change in bowel habits, diarrhea, constipation, nausea or vomiting. MUSCULOSKELETAL: See HPI. PSYCH: Negative for sleep disturbance, mood disorder and recent psychosocial stressors. HEMATOLOGY Negative for prolonged bleeding, bruising easily, and swollen nodes. ENDOCRINE: Negative for cold or heat intolerance, polyuria, polydipsia and goiter. NEURO: negative for lightheadedness, dizziness, tremor, gait imbalance, syncope and seizures. RADIOGRAPHS: right hand series dated 12/15/2022 revealed no evidence of acute pathology osseous and soft tissue structures are all within normal limits. There is age appropriate amounts of arthritis. OTHER STUDIES: Stress view of the right thumb today:. No evidence of fracture or instability to the MCP joint PHYSICAL EXAM: There were no vitals taken for this visit. General: Appears stated age, well built, in no apparent distress. Psychiatric: Mood and affect appropriate. Alert and oriented x3.RIGHT UPPER EXTREMITY EXAM: Inspection: Positive: swelling. No evidence of surgical incisions. No evidence of muscular atrophy. Range of Motion: Elbow flexion/extension WNL. Forearm pronation/supination WNL. Wrist flexion/wrist extension WNL. Radial deviation/ulnar deviation WNL. MCP flexion/extension 5-30 degrees. IP flexion/extension 0-30 degrees. Palpation: Positive tenderness to palpation: 1st MP joint ulnar side. Stability: No obvious instability to radial deviation of first M C P joint. Special Tests: None. Cervical Spine: Appropriate range of motion, negative midline and paraspinal muscle tenderness, negative stepoff, and negative Spurling's test. Normal strength, tone, and stability of the remainder of both upper extremities distally. Neurologic Exam: Intact lateral deltoid(C5), lateral forearm(C6), thumb(C6), middle finger(C7), medial forearm(C8), little finger(C8), and medial arm(T1) sensation bilaterally. Intact biceps (C5), brachioradialis (C6), triceps (C7) reflexes bilaterally. Vascular: 2+ radial pulses, both upper extremities. PROCEDURE: Not applicable IMPRESSION: 1. right first MTP joint ulnar collateral ligament strain. I recommend we try a thumb spica splint and reevaluate the thumb. If he has persistent discomfort further evaluation possibly with advanced imaging may be indicated.. PLAN: 1. Medication: Continue current medications. 2. Test(s)/Imaging/Referral(s): None. 3. Intervention: Thumb spica splint. 4. Follow-up: 3-4 weeks. Jonas Medina MD I would like to thank you for the kind referral of . I appreciate the opportunity to be involved in h (more content not included)... [facility] 12-31-2022 History of Presen t illness Narrative Images from the original note were not included. DEPARTMENT OF ORTHOPAEDICS HISTORY OF PRESENT ILLNESS: This is a pleasant 37 year old male, who presents today with a chief complaint of right thumb pain. He complains of sharp pain about the ulnar aspect of approximately 1 weeks duration. This pain is intermittent. He reports trauma. He reports he had his thumb bent while attempting to catch a runaway dog. He complains that the pain is 7/10. The pain is exacerbated by lifting and gripping. Previous treatments have included none. He denies proximal radiation. He denies distal radiation. He denies numbness, tingling, or electric shocks. He denies popping, clicking, catching, locking, grinding, instability, buckling, or giving way. He reports swelling and/or warmth. He denies multiple joint complaints. No past medical history on file. No past surgical history on file. Current Outpatient Medications Medication Sig Dispense Refill albuterol HFA (PROAIR HFA) 90 mcg/actuation inhaler Inhale 2 Puffs as instructed every 4 hours as needed. 18 g 0 albuterol HFA (VENTOLIN HFA) 90 mcg/actuation inhaler Inhale 2 Puffs as instructed every 4 hours as needed for Wheezing/Shortness of Breath. 1 Inhaler 0 No current facility-administered medications for this visit. ALLERGIES Allergen Reactions Fluoxetine Hcl Other: See Comments Panic attack Sertraline Other: See Comments Panic attack No family history on file. Social History Tobacco Use Smoking status: Every Day Types: Cigarettes Smokeless tobacco: Never Vaping Use Vaping Use: Never used Substance Use Topics Drug use: Not Currently Hand Dominance: right handed Occupation: Works at a car wash Activity level: recreational, sport/activity: none REVIEW OF SYSTEMS: GENERAL: negative for malaise, significant weight loss, night sweats and fever HEENT: No changes in hearing or vision, no nose bleeds or other nasal problems., No trouble swallowing RESPIRATORY: Negative for cough, wheezing and shortness of breath CARDIOVASCULAR: Negative for chest pain, leg swelling, palpitations, orthopnea GI: Negative for abdominal discomfort, hematochezia, melena, hematemesis, change in bowel habits, diarrhea, constipation, nausea or vomiting. MUSCULOSKELETAL: See HPI. PSYCH: Negative for sleep disturbance, mood disorder and recent psychosocial stressors. HEMATOLOGY Negative for prolonged bleeding, bruising easily, and swollen nodes. ENDOCRINE: Negative for cold or heat intolerance, polyuria, polydipsia and goiter. NEURO: negative for lightheadedness, dizziness, tremor, gait imbalance, syncope and seizures. RADIOGRAPHS: right hand series dated 12/15/2022 revealed no evidence of acute pathology osseous and soft tissue structures are all within normal limits. There is age appropriate amounts of arthritis. OTHER STUDIES: Stress view of the right thumb today:. No evidence of fracture or instability to the MCP joint PHYSICAL EXAM: There were no vitals taken for this visit. General: Appears stated age, well built, in no apparent distress. Psychiatric: Mood and affect appropriate. Alert and oriented x3.RIGHT UPPER EXTREMITY EXAM: Inspection: Positive: swelling. No evidence of surgical incisions. No evidence of muscular atrophy. Range of Motion: Elbow flexion/extension WNL. Forearm pronation/supination WNL. Wrist flexion/wrist extension WNL. Radial deviation/ulnar deviation WNL. MCP flexion/extension 5-30 degrees. IP flexion/extension 0-30 degrees. Palpation: Positive tenderness to palpation: 1st MP joint ulnar side. Stability: No obvious instability to radial deviation of first M C P joint. Special Tests: None. Cervical Spine: Appropriate range of motion, negative midline and paraspinal muscle tenderness, negative stepoff, and negative Spurling's test. Normal strength, tone, and stability of the remainder of both upper extremities distally. Neurologic Exam: Intact lateral deltoid(C5), lateral forearm(C6), thumb(C6), middle finger(C7), medial forearm(C8), little finger(C8), and medial arm(T1) sensation bilaterally. Intact biceps (C5), brachioradialis (C6), triceps (C7) reflexes bilaterally. Vascular: 2+ radial pulses, both upper extremities. PROCEDURE: Not applicable IMPRESSION: 1. right first MTP joint ulnar collateral ligament strain. I recommend we try a thumb spica splint and reevaluate the thumb. If he has persistent discomfort further evaluation possibly with advanced imaging may be indicated.. PLAN: 1. Medication: Continue current medications. 2. Test(s)/Imaging/Referral(s): None. 3. Intervention: Thumb spica splint. 4. Follow-up: 3-4 weeks. Jonas Medina MD I would like to thank you for the kind referral of . I appreciate the opportunity to be involved in his care. Please do not hesitate to call upon me if I may be of further assistance. documented in this encounter [facility] 12-15-2022 Note HNO ID: [id number] Author: RT Remberto(R) Service: Radiology Author Type: Technologist Type: Progress Notes Filed: 12/15/2022 10:16 AM Note Text: Radiology Service Progress Note PATIENT NAME: Delroy Biswas DATE OF SERVICE: December 15, 2022 TIME: 10:09 AM PATIENT IDENTITY VERIFICATION COMPLETED USING TWO (2) IDENTIFIERS: Name and Date of confirmed by patient verbally. FALL SCREENING: Has the patient had 2 falls in the last year or 1 fall with injury or currently using an Ambulatory Assistive Device (Walker, Cane, Wheelchair, Crutches, etc.)? No PATIENT GENDER DATA: Male PATIENT RELEVANT IMPLANT DATA REVIEWED: Yes RADIOLOGY DEPARTMENT: General X-ray: Exam(s) Completed: Upper Extremity X-Ray(s): Fingers/Thumb, right PERIPHERAL IV DATA: Not applicable SIGNED BY: RT Remberto(R) December 15, 2022 10:09 AM [facility] 12-15-2022 Note HNO ID: [id number] Author: Min Hernandez MD Service: ? Author Type: Physician Type: Progress Notes Filed: 12/15/2022 11:09 AM Note Text: Patient presents with: Trauma: Pt reported (RT) thumb injury x1 day, at home. HPI: Right thumb pain: Duration: bent his thumb backwards on his dog's collar yesterday. Location: Base of the right thumb to the MCP joint Character: sharp Radiation: No. Aggravating: Movement or touching Relieving: Pain relievers: Ice Associated: Swelling and bruising, resolved initial numbness in the thumb Pertinent negatives: Denies current numbness MEDICATIONS: albuterol HFA (PROAIR HFA) 90 mcg/actuation inhaler Inhale 2 Puffs as instructed every 4 hours as needed. albuterol HFA (VENTOLIN HFA) 90 mcg/actuation inhaler Inhale 2 Puffs as instructed every 4 hours as needed for Wheezing/Shortness of Breath. ALLERGIES: ALLERGIES Allergen Reactions Fluoxetine Hcl Other: See Comments Panic attack Sertraline Other: See Comments Panic attack VITALS: BP 132/80 Pulse 93 Temp 37.2 ?C (98.9 ?F) (Tympanic) Resp 18 Wt 82.7 kg (182 lb 6.4 oz) SpO2 98% PE: Alert, somewhat anxious/uncomfortable, right hand dominant. Thumb: right. Trace ecchymosis palmar thenar eminence. Limited range of motion of the thumb secondary to pain. Normal IP joint ROM. Pain with palpation from the proximal phalange to the first carpometacarpal joint. ASSESSMENT/PLAN: 1. Thumb pain, right - ICD9: 729.5, ICD10: M79.644 - XR DIGIT GENERAL 3V FRONTAL/LAT/OBL RIGHT small radiopaque fragment near the sesamoid at the MCP joint. Placed in orthoglass thumb spica splint for possible avulsion/tendon rupture. Treat with rest, ice, and OTC analgesia. - Orthopedic consult for further evaluation. Min Hernandez MD [facility] 12-15-2022 History of Presen t illness Narrative Patient presents with: Trauma: Pt reported (RT) thumb injury x1 day, at home. HPI: Right thumb pain: Duration: bent his thumb backwards on his dog's collar yesterday. Location: Base of the right thumb to the MCP joint Character: sharp Radiation: No. Aggravating: Movement or touching Relieving: Pain relievers: Ice Associated: Swelling and bruising, resolved initial numbness in the thumb Pertinent negatives: Denies current numbness MEDICATIONS: albuterol HFA (PROAIR HFA) 90 mcg/actuation inhaler Inhale 2 Puffs as instructed every 4 hours as needed. albuterol HFA (VENTOLIN HFA) 90 mcg/actuation inhaler Inhale 2 Puffs as instructed every 4 hours as needed for Wheezing/Shortness of Breath. ALLERGIES: ALLERGIES Allergen Reactions Fluoxetine Hcl Other: See Comments Panic attack Sertraline Other: See Comments Panic attack VITALS: BP 132/80 Pulse 93 Temp 37.2 C (98.9 F) (Tympanic) Resp 18 Wt 82.7 kg (182 lb 6.4 oz) SpO2 98% PE: Alert, somewhat anxious/uncomfortable, right hand dominant. Thumb: right. Trace ecchymosis palmar thenar eminence. Limited range of motion of the thumb secondary to pain. Normal IP joint ROM. Pain with palpation from the proximal phalange to the first carpometacarpal joint. ASSESSMENT/PLAN: 1. Thumb pain, right - ICD9: 729.5, ICD10: M79.644 - XR DIGIT GENERAL 3V FRONTAL/LAT/OBL RIGHT small radiopaque fragment near the sesamoid at the MCP joint. Placed in orthoglass thumb spica splint for possible avulsion/tendon rupture. Treat with rest, ice, and OTC analgesia. - Orthopedic consult for further evaluation. Min Hernandez MD documented in this encounter [facility] 08-03-2022 Miscellaneous Notes Pt was notified of the results. Pt verbalized understanding. Camilla Mark MA [employer] Communicationst message sent for patient. Work note as well. Pt calling for results, next step and how long off work. Will need a work excuse. Please advise pt. Harper Calabrese LPN documented in this encounter [facility] 08-03-2022 Miscellaneous Notes error documented in this encounter [facility] 08-02-2022 Influenza virus A and B RNA and SARS-CoV-2 (COVID-19) N gene panel FREDI+probe (Resp) COVID 19 RESULT: SARS-CoV-2 (Agent of COVID-19) Detected by RT-PCR or equivalent method. [employer]re [id number] (NITHYA)_EUA This test was developed and its performance characteristics determined by [facility]'s [facility] [place]. This test has been authorized by FDA under an Emergency Use Authorization (EUA). This test has been validated in accordance with the FDA's Guidance Document Policy for Diagnostics Testing in Laboratories Certified to Perform High Complexity Testing under CLIA prior to Emergency use Authorization for Coronavirus Disease 2019 during the Public Health Emergency issued on November 02, 2019. Test performed by [facility] [facility], [facility] Pathology and Laboratory Medicine [place], [address] [place] [address]. INFLUENZA A PCR: Negative for Influenza A by RT-PCR INFLUENZA B PCR: Negative for Influenza B by RT-PCR [facility] Diagnosis URI, acute- Primary Acute upper respiratory infections of unspecified site [facility] Diagnosis Thumb pain, right- Primary [facility] Diagnosis Gamekeeper's thumb of right hand, initial encounter- Primary Thumb pain, right [facility] ([facility] Diagnostic Procedure Only (Routine) - Closed Specialty Diagnoses / Procedures Referred By Contpatsy t Referred To Contact XR IMAGING Diagnoses Gamekeeper's thumb of right hand, initial encounter Procedures XR DIGIT SPECIFY 1V RIGHT RADEX FINGR MINIMUM 2 VIEWS Jonas Medina MD [address] [address] Xr Imaging Referral ID Status Reason Start Date Expiration Date V isits Requested Visits Authorized [id number] Closed Auto-Generate d Referral 12/21/2022 01/20/2024 1 1 [facility] Health Concerns Infection Onset Date Last Indicated Resolved Time COVID-19 Rule-Out 08/02/2022 08/02/2022 Infection Onset Date Last Indicated Resolved Time COVID-19 Rule-Out 08/02/2022 08/02/2022 08/03/2022 5:20 AM EST COVID-19 Confirmed 08/02/2022 08/02/2022 Reason for Referral Specialty Diagnoses / Procedures Referred By Contac t Referred To Contact Orthopedics Diagnoses Thumb pain, right Procedures CONSULT TO ORTHOPAEDICS OFFICE/OUTPATIENT [facility] 60-74 MINUTES Min Hernandez MD [address] [place] [address] Referral ID Status Reason Start Date Expiration Date Visits Requested Visits Authorized [id number] Authorized PCP Requested Referral 12/15/2022 12/15/2023 1 1 Specialty Diagnoses / Procedures Referred By Contac t Referred To Contact XR IMAGING Diagnoses Thumb pain, right Procedures XR DIGIT GENERAL 3V FRONTAL/LAT/OBL RIGHT RADEX FINGR MINIMUM 2 VIEWS Min Hernandez MD [address] [place] [address] Xr Imaging Referral ID Status Reason Start Date Expiration Date V isits Requested Visits Authorized [id number] Closed Auto-Generate d Referral 12/15/2022 01/14/2024 1 1 Summary Purpose Family History No Family History Records FoundNo Family History Records Found Advance Directives No Advanced Directives Records FoundNo Advanced Directives Records Found Additional Source Comments Source Comments (unrecognize d section and content) In the event this informatio n is protected by the Federal Confidentiality of Alcohol and Drug Abuse Patient Records regulations: The Federal rules restrict any use of the information to criminally investigate or prosecute any alcohol or drug abuse patient.[facility] the event this information is protected by the Federal Confidentiality of Alcohol and Drug Abuse Patient Records regulations: The Federal rules restrict any use of the information to criminally investigate or prosecute any alcohol or drug abuse patient.[facility] the event this information is protected by the Federal Confidentiality of Alcohol and Drug Abuse Patient Records regulations: The Federal rules restrict any use of the information to criminally investigate or prosecute any alcohol or drug abuse patient.[facility] the event this information is protected by the Federal Confidentiality of Alcohol and Drug Abuse Patient Records regulations: The Federal rules restrict any use of the information to criminally investigate or prosecute any alcohol or drug abuse patient.[facility] the event this information is protected by the Federal Confidentiality of Alcohol and Drug Abuse Patient Records regulations: The Federal rules restrict any use of the information to criminally investigate or prosecute any alcohol or drug abuse patient.[facility] the event this information is protected by the Federal Confidentiality of Alcohol and Drug Abuse Patient Records regulations: The Federal rules restrict any use of the information to criminally investigate or prosecute any alcohol or drug abuse patient.[facility] the event this information is protected by the Federal Confidentiality of Alcohol and Drug Abuse Patient Records regulations: The Federal rules restrict any use of the information to criminally investigate or prosecute any alcohol or drug abuse patient.[facility] the event this information is protected by the Federal Confidentiality of Alcohol and Drug Abuse Patient Records regulations: The Federal rules restrict any use of the information to criminally investigate or prosecute any alcohol or drug abuse patient.[facility] Reason for Visit (unrecogniz ed section and content) Reason Comments Coughing Up Blood Reason Comments Coughing Up Blood X 5 days Reason Comments Cough sob x 3 days Reason Comments results/next step Reason Comments Erroneous encounter-disregard Reason Comments Trauma Pt reported (RT) [place] mb injury x1 day, at home. Reason Comments New [facility] follow up-right thumb Specialty Diagnoses / Procedures Referred By Contac t Referred To Contact Orthopedics Diagnoses Thumb pain, right Procedures CONSULT TO ORTHOPAEDICS OFFICE/OUTPATIENT NEW HIGH MDM 60-74 MINUTES Min Hernandez MD [address] [place] [address] Referral ID Status Reason Start Date Expiration Date V isits Requested Visits Authorized [id number] Closed PCP Requested Referral 12/15/2022 12/15/2023 1 1 Care Teams (unrecognized sec tion and content) Test Developer Relationship Specialty Start Date End Date Alexys Patrick MD [address] [place] [address] PCP - General Family Practice 07/27/20 Test Developer Relationship Specialty Start Date End Date Alexys Patrick MD [address] [place] [address] PCP - General Family Practice 07/27/20 Test Developer Relationship Specialty Start Date End Date Alexys Patrick MD [address] [place] [address] PCP - General Family Medicine 07/27/20 Test Developer Relationship Specialty Start Date End Date Alexys Patrick MD [address] [place] [address] PCP - General Family Medicine 07/27/20 Test Developer Relationship Specialty Start Date End Date Alexys Patrick MD [address] [place] [address] PCP - General Family Medicine 07/27/20 Test Developer Relationship Specialty Start Date End Date Alexys Patrick MD [address] [facility] [place] [id number] PCP - General Family Medicine 07/27/20 Test Developer Relationship Specialty Start Date End Date Alexys Patrick MD [address] [facility] [place] [id number] PCP - General Family Medicine 07/27/20 (unrecognized sect ion and content) No Status Records FoundNo Status Records Found INFORMATION SOURCE (unrecogn ized section and content) DATE CREATED AUTHOR AUTHOR'S ORGANIZ ATION 06/29/2023 [facility]ly [facility], later [facility] FOR RECORDS PERTAINING TO PATIENTS WHO ARE OR HAVE BEEN ENROLLED IN A CHEMICAL DEPENDENCY/SUBSTANCEABUSE PROGRAM, SOME INFORMATION MAY BE OMITTED. This clinical summary was aggregated from multiple sources. Caution should be exercised in using it in the provision of clinical care. This summary normalizes information from multiple sources, and as a consequence, information in this document may materially change the coding, format and clinical context of patient data. In addition, data may be omitted in some cases. CLINICAL DECISIONS SHOULD BE BASED ON THE PRIMARY CLINICAL RECORDS. [email or web address] [email or web address] provides no warranty or guarantee of the accuracy or completeness of information in this document.
[2023-09-09 20:46] VITALS: BP 129/77; PULSE 69; RESP 15; O2SAT 97
== END 2023-09-09 20:48 | disposition home or self-care (01) ==
PROVIDERS: Emergency Provider Emergency Medicine; PCP Family Medicine; Visit Provider Emergency Medicine
DX: F32.A Depression, unspecified (principal); F17.210 Nicotine dependence, cigarettes, uncomplicated
CPT/HCPCS: 99282